=== PATIENT | female | born 1960 | race Caucasian/White ===

== ENCOUNTER → 2017-06-24 14:46 | Outpatient (CLI) | payer OTHER, SELFPAY ==
--- NOTE | 2017-06-24 14:52 | CT_ITS ---
CT chest w con COMPARISON: CT scan the chest with IV contrast 05/02/2016 HISTORY: Follow-up lung nodule TECHNIQUE: Multiaxial scans obtained from the thoracic inlet the hemidiaphragms and were performed with IV contrast. Sagittal and coronal reformats were evaluated as well. FINDINGS: The lung miranda are well expanded. There is no infiltrate and is no pleural fluid. Again noted several tiny 1 to 2 mm noncalcified pulmonary nodules which are stable and unchanged from previous exam. There is a calcified granuloma right lower lobe posterior basilar segment. Cardiac size is normal and the vascularity is normal. There is a low-density lesion right adrenal gland likely a cyst but difficult to be actually certain without noncontrast images. IMPRESSION: Stable multiple tiny noncalcified pulmonary nodules likely evolving granulomas. Stable hypodense lesion right adrenal gland likely a cyst or adenoma.
== END ==
LOC: RAD 14:46
PROVIDERS: Family Provider Internal Medicine Adolescent Medicine; PCP Internal Medicine Adolescent Medicine; Visit Provider Internal Medicine Adolescent Medicine
DX: R91.8 Other nonspecific abnormal finding of lung field (principal); M54.31 Sciatica, right side; M54.41 Lumbago with sciatica, right side; G89.29 Other chronic pain
CPT/HCPCS: 71260; Q9967

== ENCOUNTER 2017-07-08 16:00 | Outpatient (RCR) | payer OTHER, SELFPAY ==
--- NOTE | 2017-06-24 16:17 | HMH.PTOPEV ---
Rehab Outpatient Evaluation Rehab OP Evaluation Start: 06/24/17 16:05 Freq: Status: Active Protocol: Document 06/24/17 16:05 CORBYDURAN (Rec: 06/24/17 16:16 RONI [id number]) Electronically Signed By Casey Sunshine PT 06/24/17 16:05 Outpatient Therapy Subjective History Subjective History THis is the initial Physical Therapy evaluation for Jennifer Novoa. Pt is a 56 y/o female referred to PT for c/o LBP and bilateral LE pain w/ R>L. Pt reports she had herniated disc ~ 6 years ago and has intermittant back pain since then. Pt reports this bout began ~ 2 months ago when she slipped on icy steps and landed on her back. Pt reports pain has been consistent and she now has pain into BLE. Chief Complaint Pain Spasms Paresthesia Symptom Type Ache Throb Sharp Stabbing Numbness Tingling Shooting Symptoms Relieved By Rest/Positioning Heat Ice Symptoms Aggravated By Standing Physical Activity Walking Prior Functional Limitations None Current Functional Limitations Lifting Housework Standing Recreation Activity Walking Symptom Description Constant but Variable Level of pain today (0-10) 1 Pain scale - at its best (0-10) 1 Pain scale - at its worst (0-10) 6 Lumbopelvic Eval Posture Thoracic Spine Posture Standing Position Increased Kyphosis Lumbar Spine Posture Standing Position Decreased Lordosis Assistive device Assistive Devices None / NA Palapation tenderness bilateral thoracic spinal tenderness No lumbar spinal tenderness Yes: L5 ttp paraspinal tenderness Yes: L4/L5 level buttock tenderness Yes: R piriformis Lumbar/Sacral Palpation Findings Tenderness Accessory Movement L-spine Vertebrae Accessory Movements Central P/A Longs that Elicit Symptoms Right P/A Longs Left P/A Glid
== END 2017-07-08 16:01 | disposition home or self-care (01) ==
LOC: PT 16:00
PROVIDERS: Family Provider Internal Medicine Adolescent Medicine; PCP Internal Medicine Adolescent Medicine; Visit Provider Internal Medicine Adolescent Medicine
DX: M54.31 Sciatica, right side (principal); M54.41 Lumbago with sciatica, right side; G89.29 Other chronic pain
CPT/HCPCS: 97010; 97012; 97014; 97035; 97110; G0283

== ENCOUNTER → 2017-10-01 08:10 | Outpatient (CLI) | payer OTHER, SELFPAY ==
[2017-10-01 08:35] LABS: Basophils % 0.5 % (0.1-2.0); Eosinophils # 0.2 K/mm3 (0.0-0.4); Eosinophils % 2.8 % (0.1-12.0); Hematocrit 44.1 % (37.0-47.0); Hemoglobin 14.1 g/dL (12.2-16.2); Lymphocytes # 2.7 K/mm3 (0.7-4.5); Lymphocytes % 36.4 K/mm3 (10-50); Mean Corpuscular HGB Conc 32.1 g/dL (31.8-35.4); Mean Corpuscular Hemoglobin 28.9 pg (27.0-31.2); Mean Corpuscular Volume 90.1 fl (81-99); Monocytes # 0.5 K/mm3 (0.1-1.0); Neutrophils % 53.4 % (37.0-80.0); Platelet Count 258 K/mm3 (142-424); Red Blood Count 4.89 M/mm3 (4.20-5.40); Red Cell Distribution Width 12.7 % (11.5-17.5); White Blood Count 7.5 K/mm3 (4.8-10.8)
[2017-10-01 09:42] LABS: Alanine Aminotransferase 33 U/L (12-78); Albumin/Globulin Ratio 1.5 (1.1-1.8); Alkaline Phosphatase 86 U/L (46-116); Anion Gap 12.5 mEq/L (5-15); Aspartate Amino Transferase 22 U/L (15-37); Bilirubin,Total 0.5 mg/dL (0.2-1.0); Blood Urea Nitrogen 14 mg/dL (7-18); Calcium 8.9 mg/dL (8.5-10.1); Carbon Dioxide 25 mmol/L (21.0-32.0); Chloride 110 mmol/L (98-107); Chol/HDL Ratio 3.6 (1-3.5); Cholesterol 203 mg/dL (140-200); Creatinine,Serum 0.74 mg/dL (0.55-1.02); Estimated Glomerular Filt Rate 81 ml/min (>60); GFR (African American) 99 ML/MIN (>60); Globulin 2.7 gm/dl (1.3-3.2); Glucose 87 mg/dL (74-106); HDL Cholesterol 57 mg/dL (29-89); LDL Cholesterol 133 mg/dL (0-130); Potassium 4.5 mmoL/L (3.5-5.1); Sodium 143 mmol/L (136-145); Thyroid Stimulating Hormone 2.04 uIU/ml (0.358-3.740); Total Protein,Serum 6.7 gm/dL (6.4-8.2); Triglycerides 64 mg/dL (30-200); VLDL Cholesterol 13 mg/dL (0-40)
[2017-10-03 17:57] LABS: Estradiol <5.0 pg/mL (.); FSH 77.2 mIU/mL (.); LH 28.6 mIU/mL (.)
== END ==
PROVIDERS: Visit Provider Nurse Practitioner Family
DX: Z00.00 Encounter for general adult medical examination without abnormal findings (principal); R23.2 Flushing; N95.1 Menopausal and female climacteric states; R53.83 Other fatigue
CPT/HCPCS: 36415; 80053; 80061; 82670; 83001; 83002; 84443; 85025

== ENCOUNTER → 2017-10-06 16:16 | Outpatient (CLI) | payer OTHER, SELFPAY ==
--- NOTE | 2017-10-06 16:19 | MM_ITS ---
MM Dig screening mamm BI w/CAD CAD Screening COMPARISON: Digital mammograms with CAD 02/08/2016 and additional views right breast 05/02/2016 INDICATION: There is a history of breast cancer in patient's sister diagnosed at age 54 TECHNIQUE: Standard CC and MLO images were obtained. R2 CAD reviewed. FINDINGS: Scattered fibroglandular densities are seen throughout both breast and the findings are bilateral and symmetrical. There is no suspicious lesion and there are no suspicious microcalcifications. There is a benign-appearing calcification left breast. IMPRESSION: Fibrofatty parenchyma with no suspicious lesion seen BI-RADS Category: 2 Benign Finding(s) RECOMMENDED FOLLOW-UP: 1YR - 1 YEAR FOLLOW-UP (A letter has been sent to the patient regarding results of the study.)
== END ==
PROVIDERS: Family Provider Internal Medicine Adolescent Medicine; PCP Internal Medicine Adolescent Medicine; Visit Provider Nurse Practitioner Family
DX: Z12.31 Encounter for screening mammogram for malignant neoplasm of breast (principal)
CPT/HCPCS: 77067

== ENCOUNTER → 2018-10-01 07:15 | Outpatient (CLI) | payer OTHER, SELFPAY ==
[2018-10-01 07:44] LABS: Basophils % 0.4 % (0.1-2.0); Eosinophils # 0.3 K/mm3 (0.0-0.4); Eosinophils % 3.5 % (0.1-12.0); Hematocrit 45.1 % (37.0-47.0); Hemoglobin 13.9 g/dL (12.2-16.2); Lymphocytes # 3.5 K/mm3 (0.7-4.5); Lymphocytes % 48.4 % (10-50); Mean Corpuscular HGB Conc 30.7 g/dL (31.8-35.4); Mean Corpuscular Hemoglobin 30.1 pg (27.0-31.2); Mean Corpuscular Volume 97.8 fl (81-99); Mean Platelet Volume 8.2 fl (7.4-10.4); Monocytes # 0.4 K/mm3 (0.1-1.0); Monocytes % 5.3 % (1.7-9.3); Neutrophils # 3.1 K/mm3 (1.8-7.8); Neutrophils % 42.4 % (37.0-80.0); Platelet Count 255 K/mm3 (142-424); Red Blood Count 4.61 M/mm3 (4.20-5.40); Red Cell Distribution Width 13.1 % (11.5-17.5); White Blood Count 7.3 K/mm3 (4.8-10.8)
[2018-10-01 08:31] LABS: Alanine Aminotransferase 30 U/L (12-78); Albumin Level 3.5 gm/dL (3.4-5.0); Albumin/Globulin Ratio 1.3 (1.1-1.8); Alkaline Phosphatase 90 U/L (46-116); Anion Gap 11.5 mEq/L (5-15); Aspartate Amino Transferase 16 U/L (15-37); Bilirubin,Total 0.3 mg/dL (0.2-1.0); Blood Urea Nitrogen 18 mg/dL (7-18); Calcium 8.9 mg/dL (8.5-10.1); Carbon Dioxide 27 mmol/L (21.0-32.0); Chloride 110 mmol/L (98-107); Chol/HDL Ratio 3.1 (1-3.5); Cholesterol 191 mg/dL (140-200); Creatinine,Serum 0.89 mg/dL (0.55-1.02); Estimated Glomerular Filt Rate 66 ml/min (>60); GFR (African American) 79 ML/MIN (>60); Globulin 2.8 gm/dl (1.3-3.2); Glucose 86 mg/dL (74-106); HDL Cholesterol 62 mg/dL (29-89); LDL Cholesterol 119 mg/dL (0-130); Potassium 4.5 mmoL/L (3.5-5.1); Sodium 144 mmol/L (136-145); Total Protein,Serum 6.3 gm/dL (6.4-8.2); Triglycerides 51 mg/dL (30-200); VLDL Cholesterol 10 mg/dL (0-40)
== END ==
PROVIDERS: Visit Provider Internal Medicine Adolescent Medicine
DX: Z00.00 Encounter for general adult medical examination without abnormal findings (principal); R91.8 Other nonspecific abnormal finding of lung field
CPT/HCPCS: 36415; 80053; 80061; 85025

== ENCOUNTER → 2018-12-09 15:11 | Outpatient (CLI) | payer OTHER, SELFPAY ==
--- NOTE | 2018-12-09 15:20 | CT_ITS ---
PROCEDURE: CT CHEST WO/W CON CLINCAL INDICATION: LUNG NODULES Follow-up lung nodule COMPARISON: CHESTW CT chest w con from 06/24/2017 TECHNIQUE: IV Contrast: 75ml Optiray 350 Axial images obtained with sagittal and coronal reformats. All CT scans at the facility use one or more dose reduction, viz: automated exposure control, ma/kV adjustment per patient size (including targeted exams where dose is matched to indication, i.e. head), or iterative reconstruction technique. FINDINGS: Scattered small nodes are present in the axilla. There are coronary artery calcifications. Normal heart size. No mediastinal or hilar adenopathy. There are few small stable lymph nodes within the mediastinum. There is mild centrilobular emphysema. Calcified granuloma is present in the right lung base. There are few scattered small subpleural opacities which are nonspecific. There are a few small 1-2 mm opacities which appear stable. No new suspicious nodules. Nodular enlargement is once again noted involving the right adrenal gland measuring -13 Hounsfield units consistent with adenomatous involvement IMPRESSION: Stable CT appearance of the chest. COPD/centrilobular emphysema with evidence of old granulomatous disease with stable 1-2 mm nodular opacities as previously described. No new nodules apparent Coronary artery calcifications suggesting coronary artery disease Stable right adrenal nodule Dictated by: John Durand MD 12/11/2018 05:36 Electronically signed by John Durand MD in [place] 12/11/2018 05:36
[2018-12-09 15:31] LABS: Blood Urea Nitrogen 14 mg/dL (7-18); Creatinine,Serum 0.74 mg/dL (0.55-1.02); Estimated Glomerular Filt Rate 81 ml/min (>60); GFR (African American) 98 ML/MIN (>60)
== END ==
PROVIDERS: PCP Internal Medicine Adolescent Medicine; Visit Provider Internal Medicine Adolescent Medicine
DX: R91.8 Other nonspecific abnormal finding of lung field (principal)
CPT/HCPCS: 36415; 71270; 82565; 84520; Q9967

== ENCOUNTER → 2019-01-01 15:10 | Outpatient (CLI) | payer OTHER, SELFPAY ==
--- NOTE | 2019-01-01 15:12 | XR_ITS ---
PROCEDURE: XR DEXA AXIAL SKELETON CLINICAL HISTORY: VASOMOTOR SYMPTOME DUE TO MENOPAUSE COMPARISON: No exams were available for comparison FINDINGS: The L1-L4 density is 1.187 with a T-score of 0.1. Mean hip density is 0.744 grams/centimeters sq with a T-score of -2.1 consistent with osteopenia. IMPRESSION: Osteopenia with moderate fracture risk. Treatment advised. Suggest follow-up exam December 2020 Dictated by: John Durand MD 01/01/2019 17:21 Electronically signed by John Durand MD in [place] 01/01/2019 17:21
--- NOTE | 2019-01-01 15:12 | MM_ITS ---
PROCEDURE: MM DIG SCREENING MAMM BI W/CAD Patient Age:58Y CLINICAL INDICATION: SCREENING routine screening mammogram. No hormones but no new complaints. Family history: Sister with breast cancer age 34. Another sister with breast cancer age 65. COMPARISON: DIGMAMMS MAMMOGRAM SCREEN-PEST CONTROL PILOT N/C from 11/09/2007 [facility] DIG MAMM-SCREEN TORI from 12/09/2012 [facility] DIG MAMM-SCREEN TORI from 02/08/2016 [facility] DIG MAMM-DX UNI A/VW-RT W/CAD from 05/02/2016 [facility] MM Dig screening mamm BI w/CAD from 10/06/2017 TECHNIQUE: Standard CC and MLO images were obtained. R2 CAD reviewed. Additional right MLO view, as well as axillary CC view both breast included. FINDINGS: . [id number] residual fibroglandular elements both breast No dominant or suspicious mass either breast. No suspicious calcifications Right breast. No new areas of significant concern. Subtle low-density 5 mm area of nodularity deep lateral right breast is seen on previous studies dating back to 2016 and most compatible with a small intramammary node. But no new areas of concern high Left breast: Small subtle density seen on MLO view is highlighted today by the CAD computer review system. Most likely this is and overlapping shadow. It measures up to 5 mm size but however given question of possible slight irregular margin appearance on detailed viewing of this area along with significant positive family history, to be particularly cautious I would suggest the patient return for spot view of this area along with left breast ultrasound. Again I favor is more likely merely overlapping shadows which seems to for the most part dissipate on the CC views. CC views appear stable when compared to prior studies of 2017 2015 (Suggest MLO and CC spot views along with a full 90 degree view left breast) IMPRESSION: Left breast: Small area of minimal density highlighted on MLO view is most likely a summation shadow, but would suggest spot views and ultrasound to further evaluate and to be diligent/cautious in this patient significant family history Right breast. No new areas of concern. Follow-up 1 year right breast recommended BI-RAD Category: 0 Need Additional Imaging Evaluation FOLLOW-UP: IMM Immediate Follow-up Recommended Left breast spot views and ultrasound (A letter has been sent to the patient regarding results of the study.) Dictated by: Chano Krueger MD 01/02/2019 14:19 Electronically signed by Chano Krueger MD in [place] 01/02/2019 14:19
== END ==
LOC: RAD 15:10
PROVIDERS: PCP Internal Medicine Adolescent Medicine; Visit Provider Internal Medicine Adolescent Medicine
DX: Z12.31 Encounter for screening mammogram for malignant neoplasm of breast (principal); Z13.820 Encounter for screening for osteoporosis; N95.1 Menopausal and female climacteric states; M85.89 Other specified disorders of bone density and structure, multiple sites
CPT/HCPCS: 77067; 77080

== ENCOUNTER → 2019-01-18 13:58 | Outpatient (CLI) | payer OTHER, SELFPAY ==
--- NOTE | 2019-01-18 14:00 | MM_ITS ---
PROCEDURE: MM DIG MAMM DX UNILAT LT CAD CLINICAL INDICATION: ABN MAMM Follow-up abnormal mammogram the COMPARISON: [facility] DIG MAMM-DX UNI A/VW-RT W/CAD from 05/02/2016 [facility] MM Dig screening mamm BI w/CAD from 10/06/2017 MM DIG SCREENING MAMM BI W/CAD from 01/01/2019 US BREAST LT COMPLETE from 01/18/2019 TECHNIQUE: Problem solving views performed along with left breast ultrasound. FINDINGS: Spot compression views of the MLO left breast once again show some asymmetry in the mid aspect of the left breast slightly superior. This corresponds to the screening mammogram. The mL view and CC view however fail to demonstrate a corresponding abnormality and left breast ultrasound is unremarkable. This may only be due to an area of tissue overlap. 3 month follow-up is suggested. Left breast ultrasound: At 10 o'clock near the nipple there is a 6 x 6 mm hyperechoic nodule with central cystic area which is probably benign. IMPRESSION: The asymmetry in the superior lip mid aspect of the left breast seen only on the MLO view and may be due to tissue overlap. Recommend 3 month mammographic and sonographic follow-up with spot compression views. BI-RAD Category: 3 Probably Benign Finding Short Term Follow-up FOLLOW-UP: 3M 3 Month Follow-up (A letter has been sent to the patient regarding results of the study.) Dictated by: John Durand MD 01/26/2019 08:12 Electronically signed by John Durand MD in [place] 01/26/2019 08:12
== END ==
LOC: RAD 13:58
PROVIDERS: PCP Internal Medicine Adolescent Medicine; Visit Provider Internal Medicine Adolescent Medicine
DX: R92.8 Other abnormal and inconclusive findings on diagnostic imaging of breast (principal)
CPT/HCPCS: 76641; 77065

== ENCOUNTER → 2019-05-03 12:06 | Outpatient (CLI) | payer OTHER, SELFPAY ==
--- NOTE | 2019-05-03 12:12 | XR_ITS ---
PROCEDURE: XR CHEST 2V CLINICAL HISTORY: FEVER, CHILLS,COUGH Smoker COMPARISON: CXR CHEST(2 VIEWS-NOT PORTABLE) from 10/24/2015 CT CHEST WO/W CON from 12/09/2018 FINDINGS: The cardiomediastinal silhouette and pulmonary vascularity are within normal limits. The lungs are clear without infiltrates, suspicious nodules, or pleural effusions. There are mild atelectatic or fibrotic changes in the left lung base. IMPRESSION: Minimal left basilar atelectasis or fibrosis otherwise negative Dictated by: John Durand MD 05/03/2019 14:10 Electronically signed by John Duradn MD in [place] 05/03/2019 14:10
== END ==
PROVIDERS: PCP Internal Medicine Adolescent Medicine; Visit Provider Nurse Practitioner Family
DX: R05 Cough (principal); R50.9 Fever, unspecified
CPT/HCPCS: 71046

== ENCOUNTER → 2019-05-04 12:46 | Outpatient (POV) | payer OTHER, SELFPAY | PROVIDERS: Visit Provider Dermatology | DX: Z00.00 Encounter for general adult medical examination without abnormal findings (principal) ==

== ENCOUNTER → 2019-05-05 14:48 | Outpatient (CLI) | payer OTHER, SELFPAY ==
--- NOTE | 2019-05-05 14:51 | MM_ITS ---
PROCEDURE: MM DIG MAMM DX UNILAT LT CAD CLINICAL INDICATION: ABN MAMM Follow-up abnormal mammogram and ultrasound COMPARISON: [facility] DIG MAMM-DX UNI A/VW-RT W/CAD from 05/02/2016 [facility] MM Dig screening mamm BI w/CAD from 10/06/2017 MM DIG SCREENING MAMM BI W/CAD from 01/01/2019 MM DIG MAMM DX UNILAT LT CAD from 01/18/2019 US BREAST LT COMPLETE from 01/18/2019 US BREAST LT COMPLETE from 05/05/2019 TECHNIQUE: Standard CC and MLO images and 3D Tomosynthesis was obtained. R2 CAD reviewed. FINDINGS: Average fibroglandular tissue. Benign-appearing left breast calcification. The area of asymmetric density in the slightly superior aspect of the left breast is not significantly changed. No malignant appearing mass or malignant-appearing microcalcification. Left breast ultrasound: There is a small hypoechoic nodule at 10 o'clock measuring 3 mm not significantly changed. The no posterior acoustical shadowing. This may be due to small area of fibroglandular tissue probably not significantly changed considering the difference in technique. IMPRESSION: BI-RAD Category: 3 Probably Benign Finding Short Term Follow-up FOLLOW-UP: 9 month follow-up of both breast (A letter has been sent to the patient regarding results of the study.) Dictated by: John Durand MD 05/08/2019 11:08 Electronically signed by John Durand MD in [place] 05/08/2019 11:08
== END ==
PROVIDERS: PCP Internal Medicine Adolescent Medicine; Visit Provider Internal Medicine Adolescent Medicine
DX: R92.8 Other abnormal and inconclusive findings on diagnostic imaging of breast (principal)
CPT/HCPCS: 76641; 77061; 77065; G0279

== ENCOUNTER → 2019-09-06 10:07 | Outpatient (POV) | payer OTHER, SELFPAY ==
[2019-09-06 10:46] VITALS: BP 130/52; PULSE 68; RESP 18; TEMP 36.5; O2SAT 99; BMI 26.4
--- NOTE | 2019-09-06 13:58 | HMH.PMCON ---
Assessment and Plan (1) Back pain Current visit: Yes Status: Chronic Qualifiers: Back pain location: low back pain Chronicity: chronic Back pain laterality: left Sciatica presence: with sciatica Sciatica laterality: sciatica of left side Qualified Code(s): M54.42 - Lumbago with sciatica, left side; G89.29 - Other chronic pain Category: Medical Code(s): M54.9 - Dorsalgia, unspecified (2) Lumbar radiculopathy Current visit: Yes Status: Chronic Category: Medical Code(s): M54.16 - Radiculopathy, lumbar region - Assessment and plan all Dx Assessment and Plan for all problems:: We will get a baseline MRI for the patient to help determine pathology. I will follow-up with the patient after this reassess her symptoms at that time. She has been instructed to call the office if she has any issues prior to her next appointment. Dr. Cristobal has reviewed this note and agrees with this plan of care. This note was dictated using voice recognition software and may contain errors or omissions HPI - Data of Consult Consult date: 09/06/19 Requesting Physician: Elisabeth Knight APRN Primary Care Provider: Santiago Mckeon MD - Consult Narrative Reason for consult: Back pain, leg pain History of present illness: Ms. Novoa is a 58 year old female who presents today for consultation regards to low back and leg pain. She has worsening left leg pain with weakness. She rates her pain a 6 out of 10. She is had this in the past. She has had epidural injections which have helped in the past. She is tried and failed anti-inflammatories medication. Any kind increased activity increases her pain will rest and heat decreases her pain. She has numbness and tingling in her left leg. CC: Elisabeth Knight APRN [facility] History I have reviewed the patient's past medical history: Yes Medical History: Denies:: Diabetes Mellitus Type 1, Diabetes Mellitus Type 2 *Have you ever received a pneumonia vaccine?: Yes *Have you received a flu vaccine this season?: Yes Other Medical History: Reports: Arthritis Laterality Cases: Bilateral: Tonsillectomy Other Surgeries: Yes: No Previous Surgery, Hysterectomy-Total, Tubal Ligation Amputation: No Fractures: No - *Social History Smoking Status: Current every day smoker Tobacco Type: cigarettes # Packs/Day (cigarettes): 1 Alcohol Intake: never *Occupational Status:: employed Housing: house Household Members: other *Travel in the last 8 weeks: None Family Hx:: Unable to obtain Review of Systems - Review of Systems ROS General: no recent weight change, no fever, no sleep disturbances Respiratory: no cough, no shortness of air, no recurring pulmonary infections Cardiovascular/Peripheral Vascular: No chest pain, No palpitations, no edema, no shortness of breath. Gastrointestinal: no new onset incontinence, normal bowel movements reported Genitourinary: no new onset incontinence Musculoskeletal: Back pain, leg pain Psychiatric: normal mood/ affect, Neurological: Weakness in left lower extremity, [denies new onset balance issues] Meds Home Medications Medication Instructions Recorded Confirmed Type triamcinolone acetonide 0.1 % 1 applic TOPICAL TID #60 g 09/19/18 09/19/18 Rx topical cream Celecoxib 200 mg PO DAILY 12/06/18 12/06/18 History Venlafaxine HCl [Effexor XR 75mg 75 mg PO DAILY 12/06/18 12/06/18 History capsule] cephALEXin [Keflex 250mg Cap] 250 mg PO Q8H 7 Days #21 cap 12/06/18 Rx Allergies Allergy/AdvReac Type Severity Reaction Status Date / Time meloxicam [MELOXICAM] Allergy Unknown Verified 12/06/18 09:23 Objective Vital signs: Temp Pulse Resp BP Pulse Ox 97.7 F 68 18 130/52 L 99 09/06/19 10:46 09/06/19 10:46 09/06/19 10:46 09/06/19 10:46 09/06/19 10:46 Narrative: Physical Exam General: Alert and oriented x3, no acute distress, pleasant and cooperative, [on room air] Lungs: Resps E/U,
== END ==
PROVIDERS: PCP Internal Medicine Adolescent Medicine; Visit Provider Clinical Nurse Specialist Family Health
DX: M54.42 Lumbago with sciatica, left side (principal); M54.16 Radiculopathy, lumbar region
CPT/HCPCS: 99202

== ENCOUNTER → 2019-09-13 08:46 | Outpatient (CLI) | payer OTHER, SELFPAY ==
--- NOTE | 2019-09-13 08:51 | MR_ITS ---
PROCEDURE: MR LUMBAR SPINE WO CON CLINICAL INDICATION: BACK PAIN COMPARISON: [employer]/O MRI-L-SPINE W/O from 02/12/2013 [employer]/O MRI-L-SPINE W/O from 08/11/2014 TECHNIQUE: Standard multiplanar multiecho sequences are performed without contrast. 3-D MIP and myelographic images are also rendered and reviewed FINDINGS: Mild degenerative lumbar scoliosis concave to the right is noted. SI joints are intact. There is interval mild degenerative narrowing at the L4-5 disc space. The spinal cord and conus medullaris is unremarkable. At the L1-2 disc space there is no significant spinal stenosis. At the L2-3 disc space there is mild facet arthropathy producing mild central canal and mild bilateral neural foraminal stenosis. At the L3-4 disc space there is a broad-based disc protrusion, mild hypertrophy of the ligamentum flavum and moderate facet arthropathy producing mild central canal and mild bilateral neural foraminal stenosis, left greater than right At the L4-5 disc space there is a broad-based disc protrusion, hypertrophy of the right half of the ligamentum flavum, moderate right facet arthropathy and mild left facet arthropathy. Mild left neural foraminal stenosis, moderate right neural foraminal stenosis, and moderate central canal stenosis is noted. At the L5-S1 disc space there is a broad-based disc protrusion without significant spinal stenosis.. The paralumbar structures remarkable for 1 centimeter lower pole left renal cyst IMPRESSION: Interval progressive multilevel spinal stenosis most pronounced at the L4-5 disc base as described above. Dictated by: Armand Leo 09/13/2019 10:55 Electronically signed by Armand Leo in [place] 09/13/2019 10:55
== END ==
PROVIDERS: PCP Internal Medicine Adolescent Medicine; Visit Provider Clinical Nurse Specialist Family Health
DX: M54.5 Low back pain (principal)
CPT/HCPCS: 72148; 76376

== ENCOUNTER 2019-09-17 14:58 | Day surgery (SDC) | payer OTHER, SELFPAY ==
[2019-09-17 16:00] VITALS: BP 118/51; PULSE 78; RESP 18; TEMP 37.2; O2SAT 94; BMI 25.7
[2019-09-17 16:30] VITALS: BP 125/85; PULSE 85; RESP 18; O2SAT 98
[2019-09-17 16:36] VITALS: BP 125/89; PULSE 85; RESP 18
--- NOTE | 2019-09-17 16:37 | HMH.PMPROC ---
- Procedure Date: 09/17/19 Time: 16:37 Anesthesiologist:: Ole Cristobal MD Complications:: None Pre-procedure Diagnosis:: Degenerative disc disease of lumbar spine with lumbar radiculopathy symptoms Post-procedure Diagnosis:: Same Indications for Procedure:: This patient is a pleasant 59-year-old white female who we are treating for low back pain with lumbar radiculopathy symptoms. She has increasing low back pain with radiation down both legs. We will do a lumbar epidural steroid injection today to see if this well with her pain symptoms. Procedure Details:: Lumbar epidural steroid injection under fluoroscopy Informed consent was obtained and the risk and benefits of the procedure was explained to the patient. The patient was taken to the procedure room. The patient was placed prone on the procedure table. The patient was prepped and draped in sterile fashion. C-arm fluoroscopy was used to view the lumbar spine. Skin and subcutaneous tissues were anesthetized using lidocaine. I placed an 18-gauge epidural needle and advanced into the L4-L5 interspace using fluoroscopic guidance and [id number] to air. After confirmation of needle placement in the epidural space with dye I injected 2 mL of lidocaine 1.5% with Depo-Medrol 80 mg. Patient tolerated the procedure well with no complications. Plan and Disposition:: We will follow-up with her in 2 weeks. Will reevaluate her symptoms at that time.
[2019-09-17 16:38] VITALS: BP 143/63; PULSE 80; RESP 16; O2SAT 99
== END 2019-09-17 16:38 | disposition home or self-care (01) ==
LOC: SC.PAINP 15:00
PROVIDERS: PCP Internal Medicine Adolescent Medicine; Visit Provider Anesthesiology
DX: M51.16 Intervertebral disc disorders with radiculopathy, lumbar region (principal); Z72.0 Tobacco use; Z90.89 Acquired absence of other organs; Z90.710 Acquired absence of both cervix and uterus; Z88.8 Allergy status to other drugs, medicaments and biological substances; Z79.899 Other long term (current) drug therapy; Z79.51 Long term (current) use of inhaled steroids
CPT/HCPCS: 62323; J1040; Q9966

== ENCOUNTER 2019-10-01 08:50 | Day surgery (SDC) | payer OTHER, SELFPAY ==
[2019-10-01 08:56] VITALS: BP 119/68; PULSE 81; RESP 18; TEMP 36.4; O2SAT 99; BMI 25.7
[2019-10-01 09:08] VITALS: BP 128/58; PULSE 83; RESP 18
[2019-10-01 09:09] VITALS: BP 130/85; PULSE 83; RESP 18; O2SAT 99
--- NOTE | 2019-10-01 09:15 | HMH.PMPROC ---
- Procedure Date: 10/01/19 Time: 09:16 Anesthesiologist:: Ole Cristobal MD Complications:: None Pre-procedure Diagnosis:: Degenerative disc disease of the lumbar spine with lumbar radiculopathy symptoms Post-procedure Diagnosis:: Same Indications for Procedure:: This patient is a pleasant 59-year-old white female who we are treating for low back pain with lumbar radicular symptoms. She did very well with her last lumbar epidural steroid injection. She was 89% better. Her pain is just now starting to return. We will do repeat lumbar epidural steroid injection under fluoroscopy today. Procedure Details:: Lumbar epidural steroid injection under fluoroscopy Informed consent was obtained and the risk and benefits of the procedure was explained to the patient. The patient was taken to the procedure room. The patient was placed prone on the procedure table. The patient was prepped and draped in sterile fashion. C-arm fluoroscopy was used to view the lumbar spine. Skin and subcutaneous tissues were anesthetized using lidocaine. I placed an 18-gauge epidural needle and advanced into the L4-L5 interspace using fluoroscopic guidance and [id number] to air. After confirmation of needle placement in the epidural space with dye I injected 2 mL of lidocaine 1.5% with Depo-Medrol 80 mg. Patient tolerated the procedure well with no complications. Plan and Disposition:: We will follow-up with her in 2 weeks. Will reevaluate symptoms at that time. Will plan on repeat lumbar epidural steroid injection if needed.
[2019-10-01 09:25] VITALS: BP 142/73; PULSE 82; RESP 20; O2SAT 99
== END 2019-10-01 09:25 | disposition home or self-care (01) ==
LOC: SC.PAINP 08:51
PROVIDERS: PCP Internal Medicine Adolescent Medicine; Visit Provider Anesthesiology
DX: M51.16 Intervertebral disc disorders with radiculopathy, lumbar region (principal); I10 Essential (primary) hypertension; F41.9 Anxiety disorder, unspecified; J44.9 Chronic obstructive pulmonary disease, unspecified; M19.90 Unspecified osteoarthritis, unspecified site; Z72.0 Tobacco use; Z90.89 Acquired absence of other organs; Z90.710 Acquired absence of both cervix and uterus; Z79.51 Long term (current) use of inhaled steroids
CPT/HCPCS: 62323; J1040; Q9966

== ENCOUNTER 2019-11-12 13:34 | Day surgery (SDC) | payer OTHER, SELFPAY ==
[2019-11-12 14:02] VITALS: BP 113/62; PULSE 77; RESP 18; TEMP 37.2; O2SAT 98; BMI 25.6
[2019-11-12 14:18] VITALS: BP 125/75; PULSE 86; RESP 18; O2SAT 98
[2019-11-12 14:19] VITALS: BP 128/78; PULSE 84; RESP 18; O2SAT 98
--- NOTE | 2019-11-12 14:20 | HMH.PMPROC ---
- Procedure Date: 11/12/19 Time: 14:20 Anesthesiologist:: Ole Cristobal MD Complications:: None Pre-procedure Diagnosis:: Degenerative disc disease of lumbar spine with lumbar radiculopathy symptoms Post-procedure Diagnosis:: Same Indications for Procedure:: This patient is a pleasant 59-year-old white female who we have been treating for low back pain with lumbar radiculopathy symptoms. She did very well with her last lumbar epidural steroid injection. She does have a couple episodes a week where she does have spasms in her left leg. She is also having issues with her left SI joint. She is tender over her left SI joint. She has a positive Any's test on left SI joint. She has a positive Delfina test on left side. We will do a left SI joint injection in the future. Today we will do a lumbar epidural steroid injection to help with her residual pain symptoms. Procedure Details:: Lumbar epidural steroid injection under fluoroscopy Informed consent was obtained and the risk and benefits of the procedure was explained to the patient. The patient was taken to the procedure room. The patient was placed prone on the procedure table. The patient was prepped and draped in sterile fashion. C-arm fluoroscopy was used to view the lumbar spine. Skin and subcutaneous tissues were anesthetized using lidocaine. I placed an 18-gauge epidural needle and advanced into the L4-L5 interspace using fluoroscopic guidance and [id number] to air. After confirmation of needle placement in the epidural space with dye I injected 2 mL of lidocaine 1.5% with Depo-Medrol 80 mg. Patient tolerated the procedure well with no complications. Plan and Disposition:: We will follow-up with her in 2 weeks. Will reevaluate symptoms at that time. We will assess her left SI joint and plan on a left SI joint injection in the future.
[2019-11-12 14:31] VITALS: BP 130/56; PULSE 75; RESP 18; O2SAT 98
== END 2019-11-12 14:33 | disposition home or self-care (01) ==
LOC: SC.PAINP 13:35
PROVIDERS: PCP Internal Medicine Adolescent Medicine; Visit Provider Anesthesiology
DX: M51.16 Intervertebral disc disorders with radiculopathy, lumbar region (principal); I10 Essential (primary) hypertension; G62.9 Polyneuropathy, unspecified; Z72.0 Tobacco use; Z90.89 Acquired absence of other organs; Z98.51 Tubal ligation status; Z90.710 Acquired absence of both cervix and uterus; Z88.8 Allergy status to other drugs, medicaments and biological substances; Z79.899 Other long term (current) drug therapy
CPT/HCPCS: 62323; J1040; Q9966

== ENCOUNTER 2019-12-24 12:30 | Day surgery (SDC) | payer OTHER, SELFPAY ==
[2019-12-24 12:55] VITALS: BP 140/62; PULSE 86; RESP 18; TEMP 36.6; O2SAT 99; BMI 25.0
[2019-12-24 13:16] VITALS: BP 122/74; PULSE 85; RESP 18; O2SAT 98
[2019-12-24 13:17] VITALS: BP 132/74; PULSE 85; RESP 18; O2SAT 98
--- NOTE | 2019-12-24 13:26 | HMH.PMPROC ---
- Procedure Date: 12/24/19 Time: 13:26 Anesthesiologist:: Ole Cristobal MD Complications:: None Pre-procedure Diagnosis:: Sacroiliitis Post-procedure Diagnosis:: Same Indications for Procedure:: This patient is a pleasant 59-year-old white female who we are treating for low back pain with lumbar radiculopathy symptoms and bilateral hip pain with sacroiliitis. She is tender over both SI joints. She has a positive Any's test bilaterally. She is positive SI joint compression test bilaterally. She is positive Delfina test bilaterally. We will do bilateral SI joint injections under fluoroscopy today to help with pain symptoms. Procedure Details:: B/L SI joint injection under fluoroscopy Informed consent was obtained and the risks and benefits of the procedure was explained to the patient. The patient was taken to the procedure room and placed prone on the procedure table. The patient was prepped using ChloraPrep. The skin and subcutaneous tissues overlying the SI joints were anesthetized using lidocaine. I placed a 22-gauge needle first in the left SI joint and second in the right SI joint. Needle placement was confirmed with dye. After this we injected 5 mL bupivacaine 0.25% and Depo-Medrol 40 mg into each SI joint. Patient tolerated the procedure well with no complication. Plan and Disposition:: We will follow-up with her in 2 weeks. Will reevaluate symptoms at that time. She is scheduled see Dr. Caballero here in the next few weeks. If she is not a surgical candidate she may benefit from spinal cord stimulation to help with her back pain and leg pain. We will get her information on that today.
[2019-12-24 13:30] VITALS: BP 143/74; PULSE 88; RESP 20; O2SAT 99
== END 2019-12-24 13:31 | disposition home or self-care (01) ==
LOC: SC.PAINP 12:31
PROVIDERS: PCP Internal Medicine Adolescent Medicine; Visit Provider Anesthesiology
DX: M46.1 Sacroiliitis, not elsewhere classified (principal); E78.5 Hyperlipidemia, unspecified; Z72.0 Tobacco use; Z90.89 Acquired absence of other organs; Z87.442 Personal history of urinary calculi; Z90.710 Acquired absence of both cervix and uterus; Z88.8 Allergy status to other drugs, medicaments and biological substances; Z79.899 Other long term (current) drug therapy
CPT/HCPCS: 27096; G0260; J1030; Q9966

== ENCOUNTER → 2020-03-18 09:30 | Outpatient (CLI) | payer OTHER, SELFPAY | PROVIDERS: Visit Provider Neurological Surgery | DX: Z01.818 Encounter for other preprocedural examination (principal); Z03.818 Encounter for observation for suspected exposure to other biological agents ruled out; M54.16 Radiculopathy, lumbar region | CPT/HCPCS: U0003 ==

== ENCOUNTER → 2020-08-07 08:36 | Outpatient (CLI) | payer OTHER, SELFPAY ==
[2020-08-07 09:09] LABS: Blood Urea Nitrogen 16 mg/dl (7-17); Estimated Glomerular Filt Rate 86 ml/min (>60); GFR (African American) 104 ML/MIN (>60)
--- NOTE | 2020-08-07 09:47 | MR_ITS ---
PROCEDURE: MR LUMBAR SPINE WO/W CON CLINICAL INDICATION: LUMBAR RADICULOPATHY Rt hip pain. Tingling and numbness. Previous surgery in February 2020. Symptoms never got better after surgery. COMPARISON: MR MR LUMBAR SPINE WO CON from 09/13/2019 TECHNIQUE: Standard multiplanar multiecho sequences are performed without and with contrast. 3-D MIP and myelographic images are also rendered and reviewed FINDINGS: There is normal alignment. Spinal cord ends at the L1 level. L1-L2: Unremarkable. L2-L3: Minimal bulging disc with mild disc desiccation. Mild facet and ligamentum hypertrophic change. Small annular fissure. Mild bilateral lateral recess narrowing unchanged. L3-L4: Facet and ligamentum hypertrophic change with mild bilateral lateral recess and foraminal narrowing not significantly changed. L4-5: Degenerative disc disease with a broad based bulging disc and endplate hypertrophic change. Status post right-sided laminectomy. The right-sided lateral recess narrowing and canal stenosis has improved. There may have also been a partial discectomy on the right with some decrease in prominence of the right paracentral disc protrusion. There is persistent severe right-sided foraminal narrowing which is slightly improved from the previous exam. There are type 1 endplate changes on the right at this level which is slightly more severe compared to the previous exam. Decreased T1 and increased T2 signal is present at the endplates on the right. There is also decreased T2 signal laterally on the right at this level. There is 7 mm left lateral translation of L4 on L5 not significantly change with mild lumbar scoliosis convex left. There is some enhancement anterior to the thecal sac at L4-5 which may represent some developing epidural fibrosis. Enhancement also noted in the laminotomy site. The enhancement of these areas could be related to postsurgical inflammation. Developing epidural fibrosis is also consideration. No obvious abscess. L5-S1: Degenerative disc disease with mild bulging disc with facet and ligamentum hypertrophy and mild bilateral foraminal narrowing. Small left renal cyst is noted. IMPRESSION: 1. Multilevel lumbar spondylosis. Please see above for detailed description. 2. At L4-5, there is degenerative disc disease with a broad based bulging disc and endplate hypertrophic change. Status post right-sided laminectomy. The right-sided lateral recess narrowing and canal stenosis has improved. There may have also been a partial discectomy on the right with some decrease in prominence of the right paracentral disc protrusion. There is persistent severe right-sided foraminal narrowing which is slightly improved from the previous exam. There are type 1 endplate changes on the right at this level which is slightly more severe compared to the previous exam. Decreased T1 and increased T2 signal is present at the endplates on the right. There is also decreased T2 signal laterally on the right at this level. There is 7 mm left lateral translation of L4 on L5 not significantly change with mild lumbar scoliosis convex left. There is some enhancement anterior to the thecal sac at L4-5 which may represent some developing epidural fibrosis. Enhancement also noted in the laminotomy site. The enhancement of these areas could be related to postsurgical inflammation. Developing epidural fibrosis is also consideration. No obvious abscess Dictated by: John Durand MD 08/08/2020 10:06 John Durand MD in [facility] 08/08/2020 10:06
== END ==
LOC: RAD 08:37
PROVIDERS: PCP Internal Medicine Adolescent Medicine; Visit Provider Neurological Surgery
DX: M54.16 Radiculopathy, lumbar region (principal)
CPT/HCPCS: 36415; 72158; 76376; 82565; 84520; A9576

== ENCOUNTER → 2020-08-09 14:19 | Outpatient (CLI) | payer OTHER, SELFPAY ==
--- NOTE | 2020-08-09 14:22 | XR_ITS ---
PROCEDURE: XR LUMBAR SPINE BENDING ONLY CLINICAL INDICATION: RADICULOPATHY,LUMBAR REGION COMPARISON: MR MR LUMBAR SPINE WO/W CON from 08/07/2020 FINDINGS: Flexion and extension views of the lumbar show no abnormal subluxation in flexion or extension. There is degenerative disc disease at L2-L3 L3-L4 and L4-5. There is generalized vascular calcification. IMPRESSION: No abnormal subluxation in flexion or extension multilevel lumbar spondylosis. Dictated by: John Durand MD 08/09/2020 14:42 John Durand MD in [facility] 08/09/2020 14:42
== END ==
PROVIDERS: PCP Internal Medicine Adolescent Medicine; Visit Provider Physician Assistant
DX: M54.16 Radiculopathy, lumbar region (principal)
CPT/HCPCS: 72120

== ENCOUNTER → 2021-01-16 07:18 | Outpatient (CLI) | payer OTHER, SELFPAY ==
--- NOTE | 2021-01-16 07:21 | MM_ITS ---
PROCEDURE: MM DIG SCREENING MAMM BI W/CAD Digital Breast Tomosynthesis Included CLINICAL INDICATION: SCREENING There is a history of breast cancer in the patient's sister diagnosed at age 34 and another sister diagnosed at age 65. COMPARISON: MG MM DIG SCREENING MAMM BI W/CAD from 01/01/2019 MG MM DIG MAMM DX UNILAT LT CAD from 01/18/2019 MG MM DIG MAMM DX UNILAT LT CAD from 05/05/2019 TECHNIQUE: Standard CC and MLO images and 3D Tomosynthesis was obtained. R2 CAD reviewed. FINDINGS: Mild scattered fibroglandular densities are seen in both breast and the findings are fairly symmetrical bilaterally. There are 2 benign-appearing calcifications left breast. There is no suspicious lesion and no suspicious microcalcifications. IMPRESSION: Fibrofatty parenchyma with no suspicious lesions seen BI-RAD Category: 2 Benign Finding(s) FOLLOW-UP: 1YR 1 Year Follow-up (A letter has been sent to the patient regarding results of the study.) Dictated by: Dr. Syed Webb MD 01/19/2021 10:45 Dr. Syed Webb MD in [place] 01/19/2021 10:45
--- NOTE | 2021-01-16 07:21 | CT_ITS ---
PROCEDURE: CT LUNG SCREENING CLINICAL INDICATION: H/O NICOTINE DEPENDENCE Current smoker COMPARISON: CT CHESTW CT chest w con from 06/24/[address] CHEST WO/W CON from 12/09/2018 TECHNIQUE: The exam was performed on a GE Light Speed [address] scanner using 2.90 mGy CTDI. A low dose helical CT CHEST was performed on a multi-detector scanner. All CT scans at the facility use one or more dose reduction, viz: automated exposure control, ma/kV adjustment per patient size (including targeted exams where dose is matched to indication, i.e. head), or iterative reconstruction technique. The LDCT was performed in a facility that meets the criteria for the screening program. Data regarding this exam was submitted to ACR which is an approved registry. The order for this exam indicates that it came as a result of a lung cancer screening counseling shard decision-making visit that included all the elements required of such a visit including smoking cessation. The radiologist interpreting this exam meets the CMS criteria for the LDCT lung cancer screening program. The exam is reported using the Lung-RADS classification scale and reported to the ACR registry. NOTE: This study was performed for the specific purposes of lung cancer screening and is not an alternative to diagnostic chest CT. RADIATION DOSE: CTDI vol(CT dose Index-volume) = 2.90mG DLP (Dose Length Product) = mGcm FINDINGS: Since the prior study, there has been interval development of diffuse ground-glass opacities throughout both lungs, more prominent on the right, and with an upper lobe predominance. These ground-glass opacities are most prominent in the right upper lobe where some of the subsolid nodules have a solid component, the largest of which measures 5 millimeters. Again noted is mild centrilobular emphysema. Again noted is right lower lobe granuloma. The airways are patent. There are coronary calcifications. There are stable mediastinal lymph nodes, none of which are enlarged by CT criteria. There is a stable 1.6 centimeter right adrenal adenoma. There are stable bilateral axillary lymph nodes which exhibit a normal fatty hilum and are not enlarged by CT criteria. IMPRESSION: Lung-RADS Category 4B Very Suspicious Follow-up: For new large nodules that develop on an annual repeat screening CT, a one-month low-dose CT follow-up is recommended to address potentially infectious or inflammatory conditions. In addition, consider referral to pulmonology. Dictated by: Huma Sarmiento MD 01/16/2021 09:49 Huma Sarmiento MD in [place] 01/16/2021 09:49
== END ==
PROVIDERS: PCP Internal Medicine Adolescent Medicine; Visit Provider Internal Medicine Adolescent Medicine
DX: Z12.31 Encounter for screening mammogram for malignant neoplasm of breast (principal); Z87.891 Personal history of nicotine dependence; Z12.2 Encounter for screening for malignant neoplasm of respiratory organs
CPT/HCPCS: 71271; 77063; 77067

== ENCOUNTER → 2021-02-19 08:20 | Outpatient (CLI) | payer OTHER, SELFPAY ==
--- NOTE | 2021-02-19 08:22 | CT_ITS ---
PROCEDURE: CT CHEST WO CON CLINICAL INDICATION: LUNG NODULE COMPARISON: CT CHW CT CHEST W/ CONTRAST from 05/02/[address] LUNG SCREENING from 01/16/2021 TECHNIQUE: Axial images obtained with sagittal and coronal reformats. All CT scans at the facility use one or more dose reduction, viz: automated exposure control, ma/kV adjustment per patient size (including targeted exams where dose is matched to indication, i.e. head), or iterative reconstruction technique. FINDINGS: HEART AND MEDIASTINAL STRUCTURES: Scattered small mediastinal lymph nodes. Coronary artery calcifications and/or stents noted. Normal heart size. LUNGS AND PLEURAL SPACES: COPD changes with scattered small sub solid nodular opacities are once again noted. The sub solid nodules appears somewhat less apparent compared to the previous and may be inflammatory/infectious in nature. Continued 3 month follow-up recommended. One new nodule is noted in the right upper lobe image 27 series 3 at 6 mm and 1 in the left upper lobe at 4 mm image 37 series 3. No effusions. Calcified granuloma is present in the right lower lobe. BONY STRUCTURES: No acute bony abnormalities apparent. UPPER ABDOMEN: 1.8 cm hypodense lesion of the right adrenal gland consistent with an adenoma. ADDITIONAL FINDINGS: No other significant abnormalities. IMPRESSION: Scattered small sub solid pulmonary nodules once again noted. Most of these appear less apparent compared to the previous exam. There is a new 6 mm nodule in the right upper lobe and 4 mm nodule in the left upper lobe. These findings may be related underlying inflammatory/infectious process. Neoplasm not totally excluded. Please correlate with clinical parameters. Suggest continued follow-up in 3 months. Dictated by: John Durand MD 02/19/2021 11:00 John Durand MD in [place] 02/19/2021 11:00
== END ==
LOC: RAD 08:20
PROVIDERS: PCP Internal Medicine Adolescent Medicine; Visit Provider Internal Medicine Adolescent Medicine
DX: R91.8 Other nonspecific abnormal finding of lung field (principal)
CPT/HCPCS: 71250

== ENCOUNTER 2021-05-14 11:06 | Day surgery (SDC) | payer OTHER, SELFPAY ==
[2021-05-14] VITALS (13 sets, daily range): BP systolic 124–182; BP diastolic 50–87; PULSE 64–91; RESP 18–19; O2SAT 95–98; BMI 28.3
[2021-05-14 11:37] LABS: Coronavirus 19, PCR Not Detected (NotDetected); Influenza A, PCR Not Detected (NotDetected); Influenza B, PCR Not Detected (NotDetected)
[2021-05-14 11:44] LABS: Basophils # 0.1 K/mm3 (0-0.2); Basophils % 0.6 % (0.1-2.0); Eosinophils # 0.2 K/mm3 (0.0-0.4); Eosinophils % 2.3 % (0.1-12.0); Hematocrit 41.1 % (37.0-47.0); Hemoglobin 13.9 g/dL (12.2-16.2); Lymphocytes # 3.4 K/mm3 (0.7-4.5); Lymphocytes % 39.2 % (10-50); Mean Corpuscular HGB Conc 33.8 g/dL (31.8-35.4); Mean Corpuscular Hemoglobin 31.4 pg (27.0-31.2); Mean Corpuscular Volume 92.7 fl (81-99); Mean Platelet Volume 8.1 fl (7.4-10.4); Monocytes # 0.6 K/mm3 (0.1-1.0); Monocytes % 6.9 % (1.7-9.3); Neutrophils # 4.5 K/mm3 (1.8-7.8); Platelet Count 298 K/mm3 (142-424); Red Blood Count 4.43 M/mm3 (4.20-5.40); Red Cell Distribution Width 13.2 % (11.5-17.5); White Blood Count 8.7 K/mm3 (4.8-10.8)
[2021-05-14 11:45] LABS: Blood Urea Nitrogen 13 mg/dl (7-17); Calcium 8.6 mg/dl (8.4-10.2); Carbon Dioxide 25 mmol/L (22.0-30.0); Chloride 110 mmol/L (98-107); Creatinine Clearance Estimated 91 mL/min (50-200); Estimated Glomerular Filt Rate 74 ml/min (>60); GFR (African American) 89 ML/MIN (>60); Glucose 101 mg/dl (74-100); Sodium 142 mmol/L (136-145)
== END 2021-05-14 15:05 | disposition home or self-care (01) ==
LOC: CATHLAB 11:08
PROVIDERS: PCP Internal Medicine Adolescent Medicine; Visit Provider Internal Medicine
DX: R07.9 Chest pain, unspecified (principal); I25.118 Atherosclerotic heart disease of native coronary artery with other forms of angina pectoris; R94.31 Abnormal electrocardiogram [ECG] [EKG]; F17.210 Nicotine dependence, cigarettes, uncomplicated; E78.2 Mixed hyperlipidemia; J44.9 Chronic obstructive pulmonary disease, unspecified; Z79.899 Other long term (current) drug therapy
CPT/HCPCS: 80048; 85025; 93458; 99152; C1725; C1769; C9803; J1644; Q9967; U0003; U0005

== ENCOUNTER → 2021-07-06 09:13 | Outpatient (CLI) | payer OTHER, SELFPAY ==
--- NOTE | 2021-07-06 09:20 | CT_ITS ---
FINAL REPORT TECHNIQUE: After the administration of intravenous contrast, axial images through the chest were performed by computed tomography.This study was performed with techniques to keep radiation doses as low as reasonably achievable, (ALARA). Individualized dose reduction techniques using automated exposure control or adjustment of mA and/or kV according to the patient''s size were employed. CLINICAL HISTORY: LUNG NODULES, smoker COMPARISON: 02/19/2021 FINDINGS: There is a precarinal node measuring 1.2 cm. There is a small filling defect in the proximal left subclavian artery, probably related to mural thrombus. This is well seen on images 20 and 21 of series 2. The heart size is normal. There is no pericardial or pleural effusion. Bilateral pleural and parenchymal scarring is identified. Again identified are a multitude of small nodules in both lungs, many of which are ill-defined. Nodular densities have considerably improved since previous. Specific nodules in question in the right and left upper lobes are not clearly seen on today's exam. Several small pleural based foci are stable since previous. Limited images of the upper abdomen reveal a low-attenuation mass in the right adrenal gland measuring 1.4 cm consistent with an adenoma. IMPRESSION: Interval improvement in the multiple ill-defined nodules most consistent with resolving inflammatory process. Recommend follow-up CT in 6 months. Minimal mural thrombus in the proximal left subclavian artery. Right adrenal adenoma. Reviewed, Interpreted and Dictated by Chai Brown MD Transcribed by Rena Bravo Authenticated by Chai Brown MD on 07/06/2021 11:17:18 AM [facility]
--- NOTE | 2021-07-06 09:20 | XR_ITS ---
FINAL REPORT TECHNIQUE: Bone densitometry calculations of the lumbar spine and left hip were obtained. CLINICAL HISTORY: osteopenia FINDINGS: Using L1-4, the bone mineral density of the spine is 1.044 g/cm2, corresponding to T-score of 0.0. Using the left hip, the bone mineral density of the femoral neck is 0.639 g/cm2, corresponding to a T-score of -2.5. Using the right hip, the bone mineral density of the femoral neck is 0.587 g/cm2, corresponding to a T-score of -2.4. NOTE: T-score: Standard deviation compared with peak bone mass of young adult mean. *Following the recommendations of the International Society of Bone densitometry, classification of hip BMD is based on the lower of two T-scores; total hip or femoral neck. IMPRESSION: Normal bone meld mineral density of the lumbar spine however this may be artificially elevated due to degenerative disease. Diminished bone mineral density of the left hip consistent with borderline osteoporosis. Diminished bone mineral density of the right hip consistent with osteopenia. FRAX not reported due to menopausal woman. Reviewed, Interpreted and Dictated by Chai Brown MD Transcribed by Rena Bravo Authenticated by Chai Brown MD on 07/06/2021 02:40:49 PM [facility]
== END ==
LOC: RAD 09:13
PROVIDERS: PCP Internal Medicine Adolescent Medicine; Visit Provider Internal Medicine Adolescent Medicine
DX: R91.8 Other nonspecific abnormal finding of lung field (principal); M85.80 Other specified disorders of bone density and structure, unspecified site
CPT/HCPCS: 71260; 77080; Q9967

== ENCOUNTER 2021-08-31 08:51 | Day surgery (SDC) | payer OTHER, SELFPAY ==
[2021-08-31 08:57] VITALS: BP 153/53; PULSE 96; RESP 20; TEMP 36.6; O2SAT 100; BMI 26.6
[2021-08-31 09:02] VITALS: BP 132/66; PULSE 82; RESP 18; O2SAT 97
[2021-08-31 09:03] VITALS: BP 126/56; PULSE 86; RESP 18; O2SAT 97
--- NOTE | 2021-08-31 09:07 | P.PCN_ITS ---
- Procedure Date: 08/31/21 Time: 09:07 Anesthesiologist:: Harvey Peres CRNA Complications:: None Pre-procedure Diagnosis:: Left sacroiliitis Post-procedure Diagnosis:: Same Indications for Procedure:: Patient is a pleasant 60-year-old female that comes our clinic today with repeat SI joint pain on the left. She has extreme point tenderness over the left SI joint. Patient has had this in the past. She has also had left SI joint injection with significant improvement I have seen 2 to 3 years. I suggest repeat left SI joint injection. Patient agrees. Risk and benefits were dis cussed. Patient wishes to proceed. Procedure Details:: Procedure: Left sacroiliac injection under fluoroscopy Informed consent was obtained and the risk and benefits of the procedure were explained to the patient.~ The patient was taken to the procedure room and noninvasive monitors were placed including noninvasive blood pressure cuff and pulse oximeter.~ The patient was placed prone on the procedure table.~ The~ left hip was cleansed using Betadine as a cleansing solution.~ C-arm fluorosocpy was used to view the left SI joint.~ The skin and subcutaneous tissues were anesthetized using Lidocaine 1.5% and a 25-gauge needle.~ After this, a 22-gauge spinal needle was inserted under fluoroscopic guidance into the inferior aspect of the left SI joint.~ Omnipaque dye was injected and a good spread was seen throughout the joint.~ After this, approximately 5 mL of bupivacaine 0.25% and Depo-Medrol 40 mg was incrementally injected into the sacroiliac joint.~ The pat ient tolerated the procedure well with no complications.~ The patient was observed in the Pain Clinic for a period of 30-45 minutes, then discharged home neurologically intact.~ Plan and Disposition:: Patient was discharged without incident.
[2021-08-31 09:10] VITALS: BP 153/85; PULSE 76; RESP 20
== END 2021-08-31 09:10 | disposition home or self-care (01) ==
PROVIDERS: PCP Internal Medicine Adolescent Medicine; Visit Provider Nurse Anesthetist, Certified Registered
DX: M46.1 Sacroiliitis, not elsewhere classified (principal)
CPT/HCPCS: 27096; G0260; J1040

== ENCOUNTER → 2022-01-26 09:32 | Outpatient (CLI) | payer OTHER, SELFPAY ==
[2022-01-26 10:26] LABS: Basophils # 0.1 K/mm3 (0-0.2); Basophils % 1.2 % (0.1-2.0); Eosinophils # 0.1 K/mm3 (0.0-0.4); Eosinophils % 1.6 % (0.1-12.0); Hematocrit 43.6 % (37.0-47.0); Hemoglobin 13.8 g/dL (12.2-16.2); Lymphocytes # 2.4 K/mm3 (0.7-4.5); Lymphocytes % 30.3 % (10-50); Mean Corpuscular HGB Conc 31.7 g/dL (31.8-35.4); Mean Corpuscular Volume 97.8 fl (81-99); Mean Platelet Volume 8.9 fl (7.4-10.4); Monocytes # 0.6 K/mm3 (0.1-1.0); Neutrophils # 4.7 K/mm3 (1.8-7.8); Neutrophils % 59.8 % (37.0-80.0); Platelet Count 282 K/mm3 (142-424); Red Blood Count 4.46 M/mm3 (4.20-5.40); Red Cell Distribution Width 13.4 % (11.5-17.5); White Blood Count 7.8 K/mm3 (4.8-10.8)
[2022-01-26 11:05] LABS: Alanine Aminotransferase 29 U/L (12-78); Albumin Level 4.5 g/dl (3.5-5.0); Alkaline Phosphatase 111 U/L (38-126); Aspartate Amino Transferase 40 U/L (14-36); Bilirubin,Total 0.6 mg/dl (0.2-1.3); Blood Urea Nitrogen 11 mg/dl (7-17); Calcium 9.7 mg/dl (8.4-10.2); Carbon Dioxide 28 mmol/L (22.0-30.0); Chloride 105 mmol/L (98-107); Chol/HDL Ratio 2.1 (1-3.5); Cholesterol 135 mg/dl (140-200); Estimated Glomerular Filt Rate 102 ml/min (>60); GFR (African American) 124 ML/MIN (>60); Globulin 2.3 g/dL (1.3-3.2); Glucose 93 mg/dl (74-100); HDL Cholesterol 64 mg/dl (40-60); Sodium 142 mmol/L (136-145); Total Protein,Serum 6.8 g/dl (6.3-8.2); Triglycerides 62 mg/dl (30-150); VLDL Cholesterol 12 mg/dL (0-40)
[2022-01-26 11:08] LABS: Anion Gap 13.1 mEq/L (5-15); Potassium 4.1 mmoL/L (3.5-5.1)
[2022-01-26 11:10] LABS: Hemoglobin A1C 5.1 % (4.0-6.0)
[2022-01-26 11:16] LABS: Direct LDL Cholesterol 52.48 mg/dL (100-129)
[2022-01-26 11:22] LABS: 25-OH Vitamin D, Total 26.5 ng/mL (30-100)
[2022-01-26 11:36] LABS: Thyroid Stimulating Hormone 1.59 uIU/mL (0.465-4.68)
[2022-01-26 11:55] LABS: Vitamin B12 991 pg/mL (239-931)
[2022-01-27 08:09] LABS: FSH 72.3 mIU/mL (.); LH 27.2 mIU/mL (.)
== END ==
PROVIDERS: PCP Internal Medicine Adolescent Medicine; Visit Provider Internal Medicine Adolescent Medicine
DX: Z00.00 Encounter for general adult medical examination without abnormal findings (principal); N95.1 Menopausal and female climacteric states; R53.81 Other malaise; R53.83 Other fatigue; E55.9 Vitamin D deficiency, unspecified; Z79.899 Other long term (current) drug therapy
CPT/HCPCS: 36415; 80053; 80061; 82306; 82607; 83001; 83002; 83036; 84443; 85025

== ENCOUNTER → 2023-03-19 07:17 | Outpatient (CLI) | payer BC, SELFPAY ==
--- NOTE | 2023-03-19 07:21 | MM_ITS ---
PROCEDURE INFORMATION: Exam: MG Bilateral Screening 3D Mammography Exam date and time: 03/19/2023 8:08 AM Age: 62 years old Clinical indication: Screening mammogram TECHNIQUE: Imaging protocol: Bilateral Screening tomosynthesis and 2D mammography including computer-aided detection (CAD) when performed. COMPARISON: 1. MG MM DIG SCREENING MAMM BI W/CAD 01/16/2021 8:03 AM 2. MG MM DIG MAMM DX UNILAT LT CAD 05/05/2019 3:13 PM 3. MG MM DIG MAMM DX UNILAT LT CAD 01/18/2019 2:17 PM 4. MG MM DIG SCREENING MAMM BI W/CAD 01/01/2019 3:30 PM FINDINGS: MAMMOGRAPHY: Breast composition: There are scattered areas of fibroglandular density. Mass: None. Architectural distortion: No new or suspicious architectural distortion. Calcifications: No new or suspicious calcifications are present Asymmetric density: No new or suspicious asymmetric density is present Skin thickening: None. Axillary adenopathy: None. IMPRESSION: No mammographic evidence of malignancy. Recommend annual screening mammography unless otherwise clinically indicated. ASSESSMENT: BI-RADS category 1: Negative
--- NOTE | 2023-03-19 07:22 | CT_ITS ---
FINAL REPORT TECHNIQUE: Axial images were obtained from the lung apex to the mid abdomen by computed tomography. This study was performed with techniques to keep radiation doses as low as reasonably achievable (ALARA). Individualized dose reduction techniques using automated exposure control or adjustment of mA and/or kV according to the patient's size were employed. CLINICAL HISTORY: H/O TOBACCO USE smoker, 1/2 ppd x 40 years COMPARISON: 07/06/2021 FINDINGS: CHEST CT LOW DOSE CTDI vol (mGy): 2.90 DLP (mGy-cm): 106.81 There are few small scattered mediastinal lymph nodes, similar to previous. Right hilar and subcarinal lymph nodes are partially calcified. There is dense coronary artery calcification. There is a tiny nodule in the periphery of the right upper lobe measuring 4 mm, similar to prior. Finding is best seen on image 18 of series 4. There are a few similar appearing nodules measuring up to 3 mm in the periphery of the left upper lobe. Findings are best seen on images 30 and 32 of series 4. Limited images of the upper abdomen reveal a 1.4 cm low-attenuation nodule in the right adrenal consistent with an adenoma. IMPRESSION: Stable nodules as detailed above. Lung RADS category 2. Recommend 12 month follow-up low-dose chest CT. Reviewed, Interpreted and Dictated by Chai Brown MD Transcribed by Rena Bravo Authenticated and [facility]
--- NOTE | 2023-03-19 07:22 | XR_ITS ---
FINAL REPORT TECHNIQUE: Bone densitometry calculations of the lumbar spine and left hip were obtained. CLINICAL HISTORY: POST MENOPAUSAL FINDINGS: Using L1-4, the bone mineral density of the spine is 1.057 g/cm2, corresponding to T-score of 0.1 but may be artificially elevated secondary to hypertrophic changes. Using the left hip, the bone mineral density of the femoral neck is 0.643 g/cm2, corresponding to a T-score of -2.4. Using the right hip, the bone mineral density of the femoral neck is 0.638 g/cm2, corresponding to a T-score of -1.9. NOTE: T-score: Standard deviation compared with peak bone mass of young adult mean. *Following the recommendations of the International Society of Bone densitometry, classification of hip BMD is based on the lower of two T-scores; total hip or femoral neck. IMPRESSION: Diminished bone mineral density of the lumbar spine hips consistent with osteopenia. Reviewed, Interpreted and Dictated by Chai Brown MD Transcribed by Rena Bravo Authenticated and [facility]
== END ==
LOC: RAD 07:18
PROVIDERS: PCP Internal Medicine; Visit Provider Nurse Practitioner Family
DX: Z78.0 Asymptomatic menopausal state (principal); Z12.31 Encounter for screening mammogram for malignant neoplasm of breast; Z72.0 Tobacco use
CPT/HCPCS: 71271; 77063; 77067; 77080

== ENCOUNTER 2024-04-21 15:01 | Outpatient (CLI) | payer BC, SELFPAY ==
--- NOTE | 2024-04-21 15:05 | XR_ITS ---
FINAL REPORT TECHNIQUE: Bone densitometry calculations of the lumbar spine and left hip were obtained. CLINICAL HISTORY: SCREENING COMPARISON: 03/19/2023 FINDINGS: Using L1-4, the bone mineral density of the spine is 1.096 g/cm2, corresponding to T-score of 0.4. Using the left hip, the bone mineral density of the femoral neck is 0.679 g/cm2, corresponding to a T-score of -2.2. Using the right hip, the bone mineral density of the femoral neck is 0.597 g/cm?, corresponding to a T-score of -2.3. NOTE: T-score: Standard deviation compared with peak bone mass of young adult mean. *Following the recommendations of the International Society of Bone densitometry, classification of hip BMD is based on the lower of two T-scores; total hip or femoral neck. IMPRESSION: Diminished bone mineral density of the bilateral hips consistent with osteopenia. Normal bone mineral density of the lumbar spine. Reviewed, Interpreted and Dictated by Chai Brown MD Transcribed by Kathrine Beltran Authenticated and [facility]
== END 2024-04-21 23:59 | disposition home or self-care (01) ==
LOC: RAD 15:01
PROVIDERS: PCP Internal Medicine; Visit Provider Physician Assistant
DX: Z78.0 Asymptomatic menopausal state (principal)
CPT/HCPCS: 77080

== ENCOUNTER 2024-05-07 15:13 | Outpatient (CLI) | payer BC, SELFPAY ==
--- NOTE | 2024-05-07 15:15 | CT_ITS ---
FINAL REPORT TECHNIQUE: Axial CT images of the chest were obtained without contrast. Low-dose protocol was utilized. This study was performed with techniques to keep radiation doses as low as reasonably achievable (ALARA). Individualized dose reduction techniques using automated exposure control or adjustment of mA and/or kV according to the patient's size were employed. CLINICAL HISTORY: LUNG SCREENING. patient is currently a smoker and smokes 1 PPD. patient has been a smoker for 40 years. COMPARISON: 03/19/2023 FINDINGS: CT CHEST WITHOUT, LOW DOSE SCREENING CT Di Vol: 2.90 mGy DLP: 116.46 mGy*cm There is no axillary, mediastinal, or hilar adenopathy. The heart size is normal. There is no pleural or pericardial effusion. The lung windows show a new cavitary nodule in the left upper lobe measuring 8 mm on image 30 of series 3. There is a 2 mm peripheral nodule in the left upper lobe on image 38 which is stable. A 3 mm left lower lobe nodule on image 50 is stable. There is a 3 mm right upper lobe nodule on image 28 which is also stable.. Limited images of the upper abdomen demonstrate mild right adrenal enlargement, probable adenoma.. IMPRESSION: New 8 mm cavitary nodule left upper lobe. LR Category 4B: Lesion is probably too small for PET characterization. Three-month follow-up low-dose chest CT is recommended per Fleischner criteria. Reviewed, Interpreted and Dictated by Sawyer Marrero MD Transcribed by Shayy Colon Authenticated and [facility]
== END 2024-05-07 23:59 | disposition home or self-care (01) ==
LOC: RAD 15:14
PROVIDERS: PCP Internal Medicine; Visit Provider Physician Assistant
DX: Z87.891 Personal history of nicotine dependence (principal)
CPT/HCPCS: 71271

== ENCOUNTER 2024-09-02 15:13 | Outpatient (CLI) | payer BC, SELFPAY ==
--- OUTSIDE RECORDS SUMMARY | 2024-08-13 07:30 | XMS_ITS ---
Author Organization [facility] [place] Address [address] [facility] [address] [place] [address] Care Team Providers Care Food Safety Auditor Name Role Phone Santiago Mckeon Primary Care Provider Lidia Gabriel Unavailable [phone] Allergies Allergen (clinical drug ingredient) Drug/Non Drug Allergy documented on EMR Reaction Allergy Type Onset Date Status meloxicam Meloxicam angioedema Drug Allergy Active diclofenac Diclofenac hives Drug Allergy Activ e Reason For Referral Reason Please refer to PT a t [facility] for sciatica and low back pain. Diagnosis 1 Lumbago with sciatic a, right side (M54.41) Referral Organization [facility] Referring Provider First Name Lidia Referring Provider Last Name Harvey Referring Provider Speciality Family Pra ctice Referred Organization [facility] Referred Address [address] [facility] [address] [facility], [place],[address],[place] Referred Provider Specialty Physical The rapist Referral Priority Routine REASON FOR VISIT lower back pain radiating down legs Medications Medication SIG (Take, Route, Frequency, Duration) Notes Start Date End Date Status Methocarbamol 500 MG as directed Orally every 8 hours for 30 days Take 1-2 tablets every 8 hours as needed muscle spasm. 08/13/2024 Active Atorvastatin Calcium 40 MG 1 tab(s) oral ly once a day for 90 days Active Alendronate Sodium 70 MG 1 tab(s) orally once a week for 90 days Active Venlafaxine HCl ER 150 MG 1 cap(s) orall y once a day for 90 days Active Problems Problem Type SNOMED Code ICD Code Onset Dates Problem Status W/U Status Risk Notes Problem 81906606 Other polyneuropathy (G62.89) Active confirmed Vital Signs Temperature 98 degrees Fahrenheit 08/13/2024 Heart Rate 78 /min 08/13/2024 Blood pressure systolic 142 mm Hg 08/14/19 25 Blood pressure diastolic 82 mm Hg 025 Height 5 ft 5 in in 08/13/2024 Weight 148 lbs 08/13/2024 BMI 24.63 kg/m2 08/13/2024 Encounters Encounter Location Date Provider Diagnosis [facility] [address] [address] 08/13/2024 Lidia Gabriel Lumbago with sciatic a, right side M54.41 ; Lumbago with sciatica, left side M54.42 ; Other polyneuropathy G62.89 ; B12 deficiency E53.8 and Vitamin D deficiency E55.9 Assessments Encounter Date Diagnosis (ICD Code) Assessment Notes Treatment Notes Treatment Clinical Notes Section Notes 08/13/2024 Lumbago with sciatica, right side (ICD-10 - M54.41) Will start with x-ray of spine. If continues may need hip/pelvis x-rays. I personally will review all labs once final. Discussed the etiology and expected course of back pain. Discussed the role of pain medications/anti- inflammatories including Ibuprofen and Tylenol, heat pad, stretches, and to walk 30 mins a day. Steroid shot today and PRN muscle relaxer ordered. Counseled patient to not drive when taking this medication. Also, discussed signs and symptoms of worsening condition that may warrant reassessment in clinic or ED. PT ordered. Patient and family voice understanding and agree with the plan of care above. 08/13/2024 Lumbago with sciatica, left side (ICD-10 - M54.42) As above. 08/13/2024 Other polyneuropathy (ICD-10 - G62.89) I personally will review all labs once final. 08/13/2024 B12 deficiency (ICD-10 - E53.8) I personally will review all labs once final. 08/13/2024 Vitamin D deficiency (ICD-10 - E55.9) I personally will review all labs once final. Plan Of Treatment Medication Medication Name Sig Start Date Stop Date Notes Methocarbamol 500 MG as directed Orally every 8 hours for 30 days 08/13/2024 Treatment Notes Assessment Notes Lumbago with sciatica, right side Will s tart with x-ray of spine. If continues may need hip/pelvis x-rays. I personally will review all labs once final. Discussed the etiology and expected course of back pain. Discussed the role of pain medications/anti-inflammatories including Ibuprofen and Tylenol, heat pad, stretches, and to walk 30 mins a day. Steroid shot today and PRN muscle relaxer ordered. Counseled patient to not drive when taking this medication. Also, discussed signs and symptoms of worsening condition that may warrant reassessment in clinic or ED. PT ordered. Patient and family voice understanding and agree with the plan of care above. Lumbago with sciatica, left side As abov e. Other polyneuropathy I personally will r eview all labs once final. B12 deficiency I personally will re view all labs once final. Vitamin D deficiency I personally will r eview all labs once final. Pending Test Test Name Order Date X ray : Spines, Lumbosacral 08/13/2024 COMPREHENSIVE METABOLIC PANEL (44517) CBC (INCLUDES DIFF/PLT) (6399) VITAMIN B12 (927) 08/13/2024 TSH W/REFLEX TO FT4 (47416) 08/13/2024 VITAMIN D,25-OH,TOTAL,IA (29940) 025 Referrals Referral Date Details 08/13/2024 08/13/2024, Please r opaler to PT at [facility] for sciatica and low back pain., [address] [place], [address], Next Appt Details Follow Up: pending labs and improvement with PT, Reason: Medications Administered Medication Instructions Date of Administration Dosage Notes Dexamethasone 4mg Injection 08/13/2024 4 mg Progress Notes * Jennifer NOVOAOB:[birth year] (63 yo F)Acc No.[id number]:08/13/2024 Progress Notes Patient: Jennifer JACOBSON Provider: LAYLA Shelby :1960 A ge:63 Y S ex:Female Date:08/13/2024 Address:[address], [place], [id number] Pcp:Santiago Mckeon Subjective: * Chief Complaints: * 1 . Lower back pain radiating down legs. * HPI: g en: Patient presents with low back pain starting 6 weeks ago. She has radiation of pain around her hips to tops of thighs and posterior legs down to heels bilaterally. She has been taking Tylenol arthritis, ice, and started seeing a chiropracter, but no improvement so she presents today for further evaluation. She has a history of back injury 10+ years ago and has had a laminectomy by Dr. Caballero in the past. She denies bowel/bladder incontinence, perianal parasethesia. She is able to walk, but having difficulty pushing her chiropractic neurologist and going down her stairs consistently. * ROS: A LLERGY: no R unny nose. R ESPIRATORY: no S hortness of breath. n o C ough. ? C ONSTITUTIONAL: no L oss of appetite. n o F ever. D ERMATOLOGY: no R riana. E NT: no C ough. n o S ore throat. G ASTROENTEROLOGY: no N ausea. n o A bdominal pain. M USCULOSKELETAL: Joint stiffness y es. J oint pain y es. n o?Joint swelling. * Medical History: T obacco Use, normal colonoscopy September 2015 - repeated 02/11 with polyps - 5 year f/u recommended, Last mammogram 05/13 - 9 month f/u with ernesto recommended -mammogram done 02/11 normal, 1 year follow-up, L4-5 DDD with disc bulge, Osteopenia on dexa 01/09. Alendronate started- normal dexa 07/13, Low-dose CT scan January 2021 with 3- month follow-up recommended - improved nodules on scan 07/13 - 6 month f/u recommended. * Medications: T aking Atorvastatin Calcium 40 MG Tablet 1 tab(s) orally once a day , Taking Alendronate Sodium 70 MG Tablet 1 tab(s) orally once a week , Taking Venlafaxine HCl ER 150 MG Capsule Extended Release 24 Hour 1 cap(s) orally once a day , Discontinued Methocarbamol 500 MG Tablet as directed orally every 8 hours , Medication List reviewed and reconciled with the patient * Allergies: M eloxicam: angioedema - Allergy, Diclofenac: hives. Objective: * Vitals: N elliot: dw, Pain: 4, Temp: 98, RR: 18, HR: 78, BP: 142/82, Ht: 5 ft 5 in, Wt: 148, BMI:24.63. * Examination: G eneral Examination: General P leasant and Cooperative, NAD on RA,. Oral cavity: M oist membranes. Chest: n ormal shape and expansion. Heart: R RR, No m/r/g, No edema,. Lungs: L ungs clear, No wheezes, crackles or rhonchi, Good air movement,. Abdomen: S oft, non-tender, No organomegaly or peritoneal signs.. Neurologic Exam: n o focal signs neurological deficits.? Skin: w ithout acute rashes. Back: n ormal, very low back along sacrum and ischium ttp, no open little lesions, central spine vertebra or SI joints not ttp. Extremities: 2 + patellar and achilles reflexes bilaterally, equal lower leg strength bilaterally including hip flexion, knee flexion and extension, and dorsi/plantar flexion, + FABERs bilaterally. Psych N ormal Mood/Affect. Assessment: * Assessment: 1. L umbago with sciatica, right side - M54.41 (Primary) 2 . L umbago with sciatica, left side - M54.42 3 . O ther polyneuropathy - G62.89 4 . B 12 deficiency - E53.8 5 . V itamin D deficiency - E55.9 ? Plan: * Treatment: * Notes: Will start with x-ray of spine. If continues may need hip/pelvis x-rays. I personally will review all labs once final. Discussed the etiology and expected course of back pain. Discussed the role of pain medications/anti- inflammatories including Ibuprofen and Tylenol, heat pad, stretches, and to walk 30 mins a day. Steroid shot today and PRN muscle relaxer ordered. Counseled patient to notdrive when taking this medication. Also, discussed signs and symptoms of worsening condition that may warrant reassessment in clinic or ED. PT ordered. Patient and family voice understanding and agree with the plan of care above.? Referral To: ?Reason:Please refer to PT at [facility] for sciatica and low back pain. 2.?Lumbago with sciatica, left side?LAB: COMPREHENSIVE METABOLIC PANEL (00764) ?LAB: CBC (INCLUDES DIFF/PLT) (6399) ?LAB: VITAMIN B12 (927) ?LAB: TSH W/REFLEX TO FT4 (55273) ?LAB: VITAMIN D,25-OH,TOTAL,IA (72904) ?Imaging: X ray : Spines, Lumbosacral* Lidia Gabriel 08/13/2024 12:00:22 PM EDT > Please include both lumbar AND sacral spine. * Notes: As above.??3.?Other polyneuropathy?LAB: COMPREHENSIVE METABOLIC PANEL (96520) ?LAB: CBC (INCLUDES DIFF/PLT) (6399) ?LAB: VITAMIN B12 (927) ?LAB: TSH W/REFLEX TO FT4 (61087) ?LAB: VITAMIN D,25-OH,TOTAL,IA (50490) Notes: I personally will review all labs once final.??4.?B12 deficiency?LAB: COMPREHENSIVE METABOLIC PANEL (00129) ?LAB: CBC (INCLUDES DIFF/PLT) (6399) ?LAB: VITAMIN B12 (927) ?LAB: TSH W/REFLEX TO FT4 (17671) ?LAB: VITAMIN D,25-OH,TOTAL,IA (18415) Notes: I personally will review all labs once final.??5.?Vitamin D deficiency?LAB: COMPREHENSIVE METABOLIC PANEL (33773) ?LAB: CBC (INCLUDES DIFF/PLT) (6399) ?LAB: VITAMIN B12 (927) ?LAB: TSH W/REFLEX TO FT4 (09858) ?LAB: VITAMIN D,25-OH,TOTAL,IA (52016) Notes: I personally will review all labs once final.?? * Therapeutic Injections: Dexamethasone 4mg Injection : 4 mg (Route: Intramuscular) given by ESTEFANY Lr on right gluteus * Procedure Codes: J 1100 Dexamethasone Sodium Phosphate 4mg Injection, 58341 THERAPEUTIC ADMINISTRATION * Follow Up: p ending labs and improvement with PT * * Sign off status: Completed true * Provider: LAYLA Shelby Date: 0 08/13/2024 Generated for Justin garcia/Armin/eTransmitting on: 0 09/02/2024 03:23 PM EDT History and Physical Notes * HPI (History of Present Illness) Category Sub-Category Detail Notes Category Not es gen Patient present s with low back pain starting 6 weeks ago. She has radiation of pain around her hips to tops of thighs and posterior legs down to heels bilaterally. She has been taking Tylenol arthritis, ice, and started seeing a chiropracter, but no improvement so she presents today for further evaluation. She has a history of back injury 10+ years ago and has had a laminectomy by Dr. Caballero in the past. She denies bowel/bladder incontinence, perianal parasethesia. She is able to walk, but having difficulty pushing her chiropractic neurologist and going down her stairs consistently. Examination Category Sub-Category Detail Notes Category Not es General Examination Heart: RRR, No m/r/g, No jovany ma, Lungs: Lungs clear, No whee zes, crackles or rhonchi, Good air movement, Abdomen: Soft, non-tender, No organomegaly or peritoneal signs. Extremities: 2+ patellar and achi lles reflexes bilaterally, equal lower leg strength bilaterally including hip flexion, knee flexion and extension, and dorsi/plantar flexion, + FABERs bilaterally Skin: without acute rashes Neurologic Exam: no focal signs neuro logical deficits Oral cavity: Moist membranes Back: normal, very low ayesha k along sacrum and ischium ttp, no open little lesions, central spine vertebra or SI joints not ttp Chest: normal shape and exp ansion General Pleasant and Coopera tive, NAD on RA, Psych Normal Mood/Affect Consultation Request Notes Referral Date Referring Provider Referred Provider Not es 08/13/2024 Lidia Gabriel , Please refer to PT at [facility] for sciatica and low back pain.
--- OUTSIDE RECORDS SUMMARY | 2024-08-17 08:18 | XMS_ITS ---
Author Organization [facility] Address [address] [place] [address] Care Team Providers Care Swat Team Member Name Role Phone Santiago Mckeon Primary Care Provider GabrielLidia rivera Nichole [phone] Encounters Encounter Location Date Provider Diagnosis [facility] [address] [place] [address] 08/17/2024 Lidia Gabriel Lumbago with sciatica, right side M54.41 Assessments Encounter Date Diagnosis (ICD Code) Assessment Notes Treatment Notes Treatment Clinical Notes Section Notes 08/17/2024 Lumbago with sciatica, right side (ICD-10 - M54.41) Plan Of Treatment Pending Test Test Name Order Date Physical Therapy Eval and Treat 08/18/19 25 Progress Notes * Jennifer NOVOAOB:[birth year] (63 yo F)Acc No.[id number]:08/17/2024 Patient: Jennifer JACOBSON :1960 A ge:63 Y S ex:Female Address:[address] [place], [address] Subjective: * Chief Complaints: * * Medical History: * Surgical History: * Hospitalization/Major Diagno stic Procedure: * Medications: Objective: * Vitals: * Physical Examination: Assessment: * Assessment: 1. L umbago with sciatica, right side - M54.41 Plan: * Treatment: * Procedure Codes: * true * Date: Generated for Justin garcia/Armin/Huber on: 0 09/02/2024 03:23 PM EDT
--- NOTE | 2024-09-02 15:16 | XR_ITS ---
FINAL REPORT CLINICAL HISTORY: LUMBAGO W/ SCIATICA B/L SIDES COMPARISON: 08/09/2020 FINDINGS: LUMBAR SPINE Five views were obtained. There is no acute fracture. There is 10 degree scoliosis convex to the right. There are advanced changes of degenerative disc disease at L4-5 with endplate sclerosis. Facet sclerosis is seen in the lower lumbar spine. There is dense vascular calcification of the abdominal aorta and iliac vessels. There is no malalignment. IMPRESSION: Degenerative and chronic appearing findings. Reviewed, Interpreted and Dictated by Chai Brown MD Transcribed by Rena Bravo Authenticated and [facility]
--- OUTSIDE RECORDS SUMMARY | 2024-09-02 15:23 | XMS_ITS | Patient Health Record ---
Author Organization [facility] Address [address] [place] [address] Care Team Providers Care Forestry Support Specialist Name Role Phone Santiago Mckeon Primary Care Provider Lidia Gabriel Unavailable [phone] Migration, Provider Unavailable Unavailable Allergies Allergen (clinical drug ingredient) Drug/Non Drug Allergy documented on EMR Reaction Allergy Type Onset Date Status meloxicam Meloxicam angioedema Drug Allergy Active diclofenac Diclofenac hives Drug Allergy Activ e Results Component Value Reference Range Notes DEXA Hip and Spine - Screeni ng Reviewed date:04/23/2024 09:41:35 AM Interpretation: Performing Lab: Notes/Report: LIPID PANEL, STANDARD (7600) Reviewed date:04/23/2024 02:23:08 PM Interpretation: Performing Lab:CB, [facility] [id number] [facility] Center[facility]zftDZ[address] [place] Notes/Report: NON-FASTING; NON-FASTING; NON-FASTING; NON-FASTING; NON-FAST FASTING:YES FASTING: YES CHOLESTEROL, TOTAL 202 <200 mg/dL HDL CHOLESTEROL 91 > OR = 50 mg/dL TRIGLYCERIDES 98 <150 mg/dL LDL-CHOLESTEROL 92 Reference range: <100 Desirable range <100 mg/dL for primary prevention; <70 mg/dL for patients with CHD or diabetic patients with > or = 2 CHD risk factors. LDL-C is now calculated using the Lucero calculation, which is a validated novel method providing better accuracy than the Friedewald equation in the estimation of LDL-C. Geovany MIJARES et al. JEFFRY. 2013;310(19): 6047-7417 (http://education.[employer]faq/ZCB677) CHOL/HDLC RATIO 2.2 <5.0 (calc) NON HDL CHOLESTEROL 111 <130 mg/dL (calc) For patients with diabetes plus 1 major ASCVD risk factor, treating to a non-HDL-C goal of <100 mg/dL (LDL-C of <70 mg/dL) is considered a therapeutic option. COMPREHENSIVE METABOLIC PANBobby Siu (15855) Reviewed date:04/23/2024 02:23:09 PM Interpretation: Performing Lab:FABIAN, [facility] [id number] [employer], GraffitiTechWevzHL[address] [place] Notes/Report: NON-FASTING; NON-FASTING; NON-FASTING; NON-FASTING; NON-FAST FASTING:YES FASTING: YES GLUCOSE 99 65-99 mg/dL Fasting reference interval UREA NITROGEN (BUN) 9 7-25 mg/dL CREATININE 0.71 0.50-1.05 mg/dL EGFR 97 > OR = 60 mL/min/1.73m2 BUN/CREATININE RATIO SEE NOTE: 6-22 (calc) Not Reported: BUN and Creatinine are within reference range. SODIUM 142 135-146 mmol/L POTASSIUM 4.4 3.5-5.3 mmol/L CHLORIDE 105 98-110 mmol/L CARBON DIOXIDE 28 20-32 mmol/L CALCIUM 9.7 8.6-10.4 mg/dL PROTEIN, TOTAL 7.1 6.1-8.1 g/dL ALBUMIN 4.5 3.6-5.1 g/dL GLOBULIN 2.6 1.9-3.7 g/dL (calc) ALBUMIN/GLOBULIN RATIO 1.7 1.0-2.5 (calc) BILIRUBIN, TOTAL 0.6 0.2-1.2 mg/dL ALKALINE PHOSPHATASE 102 37-153 U/L AST 23 10-35 U/L ALT 19 6-29 U/L CBC (INCLUDES DIFF/PLT) (639 9) Reviewed date:04/23/2024 02:23:09 PM Interpretation: Performing Lab:FABIAN, [facility] [address], GraffitiTechFwlpJU[address] [place] Notes/Report: NON-FASTING; NON-FASTING; NON-FASTING; NON-FASTING; NON-FAST FASTING:YES FASTING: YES WHITE BLOOD CELL COUNT 7.3 3.8-10.8 Thousand/ uL RED BLOOD CELL COUNT 4.44 3.80-5.10 Million/uL HEMOGLOBIN 14.2 11.7-15.5 g/dL HEMATOCRIT 41.2 35.0-45.0 % MCV 92.8 80.0-100.0 fL MCH 32.0 27.0-33.0 pg MCHC 34.5 32.0-36.0 g/dL For adults, a slight decrease in the calculated MCHC value (in the range of 30 to 32 g/dL) is most likely not clinically significant; however, it should be interpreted with caution in correlation with other red cell parameters and the patient's clinical condition. RDW 12.6 11.0-15.0 % PLATELET COUNT 269 140-400 Thousand/uL MPV 10.9 7.5-12.5 fL ABSOLUTE NEUTROPHILS 4000 9937-5028 cells/uL ABSOLUTE LYMPHOCYTES 2343 850-3900 cells/uL ABSOLUTE MONOCYTES 723 200-950 cells/uL ABSOLUTE EOSINOPHILS 183 15-500 cells/uL ABSOLUTE BASOPHILS 51 0-200 cells/uL NEUTROPHILS 54.8 LYMPHOCYTES 32.1 MONOCYTES 9.9 EOSINOPHILS 2.5 BASOPHILS 0.7 HEMOGLOBIN A1c (496) Reviewed date:04/23/2024 02:23:09 PM Interpretation: Performing Lab:FABIAN, [facility] [id number] [facility] [facility] SystemCutgBF[address] [place] Notes/Report: NON-FASTING; NON-FASTING; NON-FASTING; NON-FASTING; NON-FAST FASTING:YES FASTING: YES HEMOGLOBIN A1c 5.3 <5.7 % of total Hgb For the purpose of screening for the presence of diabetes: <5.7% Consistent with the absence of diabetes 5.7-6.4% Consistent with increased risk for diabetes (prediabetes) > or =6.5% Consistent with diabetes This assay result is consistent with a decreased risk of diabetes. Currently, no consensus exists regarding use of hemoglobin A1c for diagnosis of diabetes in children. According to [place] Diabetes Association (ADA) guidelines, hemoglobin A1c <7.0% represents optimal control in non- diabetic patients. Different metrics may apply to specific patient populations. Standards of Medical Care in Diabetes(ADA). TSH W/REFLEX TO FT4 (08834) Reviewed date:04/23/2024 02:23:09 PM Interpretation: Performing Lab:CB, [facility] [id number], [place] VillanuevaBtckSW[address] [place] Notes/Report: NON-FASTING; NON-FASTING; NON-FASTING; NON-FASTING; NON-FAST FASTING:YES FASTING: YES TSH W/REFLEX TO FT4 1.67 0.40-4.50 mIU/L CT Scan : Chest, Lung Cancer Screening Reviewed date:05/13/2024 10:35:25 AM Interpretation: Performing Lab: Notes/Report: Medications Medication SIG (Take, Route, Frequency, Duration) [...] once a day for 90 days Active Immunizations Vaccine Route Administration Date Status Comme nts Adacel (Tdap) Unknown 12/06/2018 Administered Arexvy IM Intramuscular 02/11/2023 Administered Flublok IM Intramuscular 01/26/2022 Administered FLUZONE 6MO - OLDER IM Intramuscular 02/11/2023 Administer ed FLUZONE 6MO - OLDER IM Intramuscular 04/13/2024 Administer ed Influenza-Fluzone 3+years (NON-MEDICARE) IM Intramuscular 01/06/2018 Administered Pneumovax 23 IM Intramuscular 11/22/2019 Administered Prevnar PCV-20 (Pneumococcal conjugate 20) IM Intramuscular 03/07/2023 Administered SHINGRIX IM Intramuscular 03/07/2023 Administered SHINGRIX IM Intramuscular 04/13/2024 Administered Social History Tobacco Use: Social History Observation Description Date Details (start date - stop date) Current Smoker NA - NA Smoking: Question Answer Notes Are you a: current smoker How often do you smoke cigarettes? every day How many cigarettes a day do you smoke? 5 or les s How soon after you wake up do you smoke your fir st cigarette? after 60 min Problems Problem Type SNOMED Code ICD Code Onset Dates Problem Status W/U Status Risk Notes Problem 646677489 Mixed hyperlipidemia (E78.2) Active confirmed Problem 67754764 Generalized anxi ety disorder (F41.1) Active confirmed Problem 66948876 Other chronic pa in (G89.29) Active confirmed Problem 393348747 Other seasonal allergic rhinitis (J30.2) Active confirmed Problem 260127242 Other allergic rhinitis (J30.89) Active confirmed Problem 94088452 Centrilobular emphysema (J43.2) Active confirmed Problem 213909582 Lumbago with sciatica, right side (M54.41) Active confirmed Problem Lumbago with sciatica, left side (M54.42) Active confirmed Problem 197710777 Personal history of nicotine dependence (Z87.891) Active confirmed Problem 97029146 Vitamin D deficiency (E55.9) Active confirmed Problem 352416865 Tobacco use disorder (Z72.0) Active confirmed Problem 421441782 Insomnia (G47.00) Active confirmed Problem 069212257 Hyperlipemia, idiopathic familial (E78.5) Active confirmed Problem 192518469 Lung nodules (R91.8) Active confirmed Problem 064295885 Primary osteoarthritis of both knees (M17.0) Active confirmed Problem 615293862 Abnormal mammogr am (R92.8) Active confirmed Problem 66819375 Right sciatic ne rve pain (M54.31) Active confirmed Problem 23150816 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.2) Active confirmed Problem 68868882 COPD without exacerbation (J44.9) Active confirmed Problem 545679163 Hot flash, menopausal (N95.1) Active confirmed Problem 669312129 Hot flashes (R23.2) Active confirmed Problem 566814722 Vasomotor sympto ms due to menopause (N95.1) Active confirmed Problem 05852086 Other polyneuropathy (G62.89) Active confirmed Vital Signs Heart Rate 78 /min 08/13/2024 Temperature 98 degrees Fahrenheit 08/13/2024 Blood pressure diastolic 82 mm Hg 08/13/2024 Height 5 ft 5 in in 08/13/2024 Blood pressure systolic 142 mm Hg 08/13/2024 Weight 148 lbs 08/13/2024 BMI 24.63 kg/m2 08/13/2024 Encounters Encounter Location Date Provider Diagnosis [facility] [address] [place] [address] 06/26/2024 Provider Migration Hot flashes R23.2 ; Muscle strain T14.8XXA ; Other specified disorders of bone density and structure, right thigh M85.851 and Mixed hyperlipidemia E78.2 [facility] [address] [place] [address] 09/02/2024 Lidia Gabriel [facility] [address] [address] 04/13/2024 Lidia Gabriel Muscle strain T14.8X XA ; Hot flashes R23.2 ; Personal history of nicotine dependence Z87.891 ; Generalized anxiety disorder F41.1 ; Other specified disorders of bone density and structure, right thigh M85.851 ; Other specified disorders of bone density and structure, left thigh M85.852 ; Mixed hyperlipidemia E78.2 ; Family history of diabetes mellitus Z83.3 ; Routine adult health maintenance Z00.00 ; Encounter for screening for lung cancer Z12.2 and Encounter for immunization Z23 [facility] [address] [address] 08/13/2024 Lidia Gabriel Lumbago with sciatic a, right side M54.41 ; Lumbago with sciatica, left side M54.42 ; Other polyneuropathy G62.89 ; B12 deficiency E53.8 and Vitamin D deficiency E55.9 [facility] [address] [place] [address] 04/14/2024 Lidia Rebollarowell Asymptomatic postmenopausal state Z78.0 [facility] [address] [place] [address] 04/19/2024 Lidia Gabriel History of nicotine dependence Z87.891 [facility] [address] [place] [address] 05/13/2024 Santiago Mckeon Pulmonary cavitary lesion J98.4 [facility] [address] [place] [address] 08/17/2024 Lidia Gabriel Lumbago with sciatic a, right side M54.41 Assessments Encounter Date Diagnosis (ICD Code) Assessment Notes Treatment Notes Treatment Clinical Notes Section Notes 04/13/2024 Hot flashes (ICD-10 - R23.2) Will check TSH, normal previously. Attribute hot flashes to hysterectomy years ago and well controlled on Venlafaxine so will continue. Follow-up in 3 months. I personally will review all labs once final. 04/13/2024 Muscle strain (ICD-10 - T14.8XXA) Discussed the etiology and expected course of back pain related to muscle spasm/strain. Discussed the role of pain medications/anti- inflammatories including Ibuprofen and Tylenol, heat pad, and stretches. PRN muscle relaxer ordered. Counseled patient to not drive when taking this medication. Also, discussed signs and symptoms of worsening condition that may warrant reassessment in clinic or ED. Patient to call office if no improvement in a week for PT to be ordered at that time. Patient and family voice understanding and agree with the plan of care above. 04/14/2024 Asymptomatic postmenopausal state (ICD-10 - Z78.0) 04/19/2024 History of nicotine dependence (ICD-10 - Z87.891) 05/13/2024 Pulmonary cavitary lesion (ICD-10 - J98.4) 06/26/2024 Hot flashes (ICD-10 - R23.2) 06/26/2024 Muscle strain (ICD-10 - T14.8XXA) 08/13/2024 Lumbago with sciatica, right side (ICD-10 [...] left side (ICD-10 - M54.42) As above. 08/17/2024 Lumbago with sciatica, right side (ICD-10 - M54.41) 08/13/2024 Other polyneuropathy (ICD-10 - G62.89) I personally will review all labs once final. 04/13/2024 Personal history of nicotine dependence (ICD-10 - Z87.891) Cessation discussed, precontemplative. 04/13/2024 Generalized anxiety disorder (ICD-10 - F41.1) I personally will review all labs once final. Well controlled on Venlafaxine so will continue. 08/13/2024 B12 deficiency (ICD-10 - E53.8) I personally will review all labs once final. 06/26/2024 Other specified disorders of bone density and structure, right thigh (ICD-10 - M85.851) 08/13/2024 Vitamin D deficiency (ICD-10 - E55.9) I personally will review all labs once final. 04/13/2024 Other specified disorders of bone density and structure, right thigh (ICD-10 - M85.851) Continue alendronate and discussed taking with a tall glass of water. 04/13/2024 Other specified disorders of bone density and structure, left thigh (ICD-10 - M85.852) Continue alendronate and discussed taking with a tall glass of water. 04/13/2024 Mixed hyperlipidemia (ICD-10 - E78.2) Continue statin. I personally will review all labs once final. 06/26/2024 Mixed hyperlipidemia (ICD-10 - E78.2) 04/13/2024 Family history of diabetes mellitus (ICD-10 - Z83.3) I personally will review all labs once final. 04/13/2024 Routine adult health maintenance (ICD-10 - Z00.00) Getting flu and Shingrix vaccines today. Now finished Shinglex vaccine series. Tdap in 2019. Prevnar and Arexvy in 2022. Hysterectomy years ago, no paps needed. Patient reports she is due for a mammogram and will call to get this scheduled herself. She reports her last colonoscopy was within a few years and normal without polyps so not due for a repeat for several years. She denies any changes in bowel habits, brbpr, or family history of colon cancer. She sees and eye MD annually, wears glasses. Denies substance abuse other than smoking cigarettes. She is not ready to stop smoking, precontemplation. Denies SI/HI. Due for second Shingrix, agreeable to getting today. Flu shot today. Due for lung cancer screening CT. Due for repeat DEXA. I personally will review all imaging and lab results once final and sent to me. 04/13/2024 Encounter for screening for lung cancer (ICD-10 - Z12.2) CT for lung cancer screening ordered. I personally will review the results once final. 04/13/2024 Encounter for immunization (ICD-10 - Z23) Plan Of Treatment Pending Test Test Name Order Date X ray : Spines, Lumbosacral 08/13/2024 Mammogram : Left breast 05/04/2019 Physical Therapy 06/09/2017 Physical Therapy 04/28/2018 Physical Therapy 02/09/2013 CT Scan : Chest, With & Without Contrast 09/28/2018 M-Complete Blood Count Auto Diff 022 M-Comprehensive Metabolic Panel 06/28/19 22 M-Lipid Panel 06/27/2021 M-Vitamin B12 01/26/2022 M-Vitamin D 25 Hydroxy 06/27/2021 M-Vitamin D 25 Hydroxy 01/26/2022 Physical Therapy Eval and Treat 08/18/19 25 COMPREHENSIVE METABOLIC PANEL (19860) CBC (INCLUDES DIFF/PLT) (6399) VITAMIN B12 (927) 08/13/2024 TSH W/REFLEX TO FT4 (99903) 08/13/2024 VITAMIN D,25-OH,TOTAL,IA (33657) 025 Future Test Test Name Order Date C-VITAMIN B12 03/10/2013 C-VITAMIN D, 25-HYDROXY 03/10/2013 Insurance Providers Payer Name Payer Address Payer Phone Subscriber Number Group Number Insured Name Patient Relationship to Insured Coverage Start Date Coverage End Date [facility] [address] [place] [address] [id number] Jennifer Novoa Self - patient is the insured Medications Administered Medication Instructions Date of Administration Dosage Notes Dexamethasone 4mg Injection 08/13/2024 4 mg Kenalog 40mg 03/18/2017 40 mg Triamcinolone Acetonide 40mg Injection 08/31/2018 1 mL Kenalog 07/21/2013 1 Medical (General) History Medical History History ICD Code Tobacco Use normal colonoscopy September 2015 - repeated 02/11 with polyps - 5 year f/u recommended Last mammogram 05/13 - 9 khadijah h f/u with ernesto recommended -mammogram done 02/11 normal, 1 year follow-up L4-5 DDD with disc bulge Osteopenia on dexa 01/09. Alendronate st arted- normal dexa 07/13 Low-dose CT scan February 10 with 3-month follow-up recommended - improved nodules on scan 07/13 - 6 month f/u recommended Surgical History Surgery Date(Month/Year) hysterectomy tonsillectomy Heart cath 05/2021
--- OUTSIDE RECORDS SUMMARY | 2024-09-02 15:23 | XMS_ITS | Data Portability ---
Author Organization [facility] Address [address] [place] [address] Care Team Providers Care Restaurant Mgr Name Role Phone OLAYINKA WASHINGTON Primary Care Provider [phone] Assessment Encounter Date Assessment Date Assessment LastModified by Organization Details LastModified Time 02/14/2020 02/14/2020 Mrs. Novoa is a 59-year-old female with a disc herniation on the right at L4-5. This has progressed substantially since her previous MRI. The MRI reviewed today was performed September 13, 2019. The previous MRI was performed February 12, 2013. There is compression on the descending L5 nerve root on the right. There is lateral recess stenosis on the left. There is also a right foraminal component there would need to be addressed during time of surgery. We discussed a right-sided L4-5 hemilaminectomy, mesial facetectomy and foraminotomy with resection of the disc herniation. We could also look across on the other side with a minimally invasive laminectomy in hopes of decompressing the left L5 nerve root. This would be performed on an outpatient basis unless she needs to stay for pain control, reaction anesthesia or spinal fluid leakage. She understands that this is the most reasonable thing to try, but ultimately she may need a fusion at the L4-L5 level if she re-herniates, develops severe foraminal stenosis or worsening left-sided symptoms. Not available 02/14/2020 09:39:58 05/15/2020 05/15/2020 Mrs. Novoa is a 59-year-old female status post minimally invasive right L4-5 discectomy. I reassured her that the numbness and tingling should continue to resolve with time. I will prescribe her a Medrol Dosepak in order to help progress things. She stated that she will let us know how things are going in a week or so. Her follow-up can be as needed. She understands that if she wants to pursue some physical therapy to give us a call, otherwise encouraged her to walk as much as possible. Not available 05/15/2020 09:09:55 Plan of Treatment Reminders Order Date Submit Date Provider Last Modified By Organization Details Last Modified Time Details Appointments None record ed. Lab None record ed. Referral None record ed. Procedures None record ed. Surgeries None record ed. Imaging None record ed. Medication Orders None record ed. Patient TargetsNo targets recorded. Patient InstructionsNo instructions recorded. Reason for Referral None Reported. Results Created Date Observation Date Name Description Value Unit Range Abnormal Flag Note LastModifiedBy Organization Detail LastModifiedTime 02/14/20 20 09/13/2019 MRI, lumba r spine , w/o contr ast No observ ation record ed. BARCODE Not Available 2019 15:12:33 03/21/20 20 03/21/2020 fluor oscop y (PROC ) No observ ation record ed. [facility] [address] , [place], [address], 03/22/2020 13:15:34 08/09/19 21 08/07/2020 MRI, lumba r spine , w/wo contr ast No observ ation record ed. [email or web address] [place] [address] [address], [place], [address], 08/08/2020 14:25:11 08/10/19 21 08/09/2020 XR, lumbo sacra l spine , 2 or 3 view, bendi ng only No observ ation record ed. [facility] [address], [place], [id number], 08/14/2020 18:27:05 Result Notes None recorded. Procedures Surgical History Date Name Laterality Status Provider Name and Address Organization Details Recorded Time 03/21/20 20 LAMINOTOMY (HEMILAMINECTOMY) , DECOMPRESSION OF NERVE ROOTS, PARTIAL FACECTOTOMY, FORAMINOTOMY AND/OR DISC REMOVAL, LUMBAR (SURG) completed Alicia Moreira [facility] 03/23/2020 13:55:30 tonsillectomy completed Rach Todd [facility] 02/14/2020 09:05:02 hysterectomy completed [facility] 02/14/2020 09:05:13 Imaging Results None recorded. Procedure Notes None recorded. Medical Equipment None Reported. Allergies Allergen ID Allergen Name Allergen Category Reaction Reaction Severity Criticality Documentation Date Start Date Code Code System Note Provider Name and Address Organization Details Recorded Time 670212 Mobic medicatio n Not available Not available Not available 02/16/20162013 55986 9 RxNorm Comme nt: Creat ed By: Palmira lopez;Patrick eated Date: 2013 9:47: 11 AM; Not Available [facility] 6 05:33:08 881316 diclofena c sodium medicatio n Not available Not available Not available 02/16/20162013 64071 4 RxNorm Comme nt: Creat ed By: Franc Leon carmen;C reate d Date: 2013 4:23: 53 PM; Not Available [facility] 6 08:49:48 Medications Name Sig Start Date Stop Date Status Note LastModified by Organization Details LastModified Time atorvastat in 40 mg tablet TAKE ONE TABLET BY MOUTH EVERY DAY active Not Available Not Available No t Available venlafaxin e ER 75 mg capsule,ex tended release 24 hr TAKE ONE CAPSULE BY MOUTH EVERY DAY active Not Available Not Available No t Available azithromyc in 250 mg tablet TAKE 2 TABLETS BY MOUTH ON DAY 1, THEN TAKE 1 TABLET DAILY ON DAYS 2-5 02/13 completed Not Available Not Available Not Available ibuprofen 800 mg tablet Two times a day active Duratio n: 30 days;Fr equency : bid;Med ication Descrip tion: ibuprof en; Dosage: 1; Route:o ral; refills :0; Quantit y:0 tablet Not Available Not Available Not Available benzonatat e 200 mg capsule active Not Available Not Available Not Available Medrol (Tesfaye) 4 mg tablets in a dose pack Take 1 tablet by oral route as directed . 2020 active Not Available Not Available Not Avai lable prednisone 20 mg tablet active Not Available Not Available Not Available ciclopirox 8 % topical solution active Not Available Not Available Not Available hydrocodon e 7.5 mg-acetami nophen 325 mg tablet TAKE ONE TABLET BY MOUTH EVERY 6 HOURS NEEDED MAY CAUSE DROWSINE SS active Not Available Not Available No t Available tobramycin 1.2 gram solution for injection active Not Available Not Available No t Available gabapentin 300 mg capsule TAKE ONE CAPSULE BY MOUTH THREE TIMES DAILY MAY CAUSE DROWSINE SS active Not Available Not Available No t Available vancomycin 10 gram intravenou s solution active Not Available Not Available N ot Available levofloxac in 500 mg tablet TAKE ONE TABLET BY MOUTH EVERY DAY FOR 7 DAYS -- FINISH ALL MEDICINE -- 02/13 completed Not Available Not Available Not Available albuterol sulfate HFA 90 mcg/actuat ion aerosol inhaler active Not Available Not Available Not Available cefdinir 300 mg capsule active Not Available Not Available Not Available ceftriaxon e 2 gram solution for injection active Not Available Not Available No t Available levocetiri zine 5 mg tablet active Not Available Not Available Not Available Breo Ellipta 100 mcg-25 mcg/dose powder for inhalation INHALE 1 PUFF BY MOUTH EVERY DAY --RINSE MOUTH AFTER USE-- active Not Available Not Available No t Available Anoro Ellipta 62.5 mcg-25 mcg/actuat ion powder for inhalation active Not Available Not Available N ot Available Trelegy Ellipta 100 mcg-62.5 mcg-25 mcg powder for inhalation active Not Available Not Available N ot Available Vitals Date Recorded Body height Body mass index (BMI) Body weight Systolic blood pressure Diastolic blood pressure Provider Name and Address Organization Details Last Updated DateTime 05/15/2020 165.1 cm 25.6 kg/m2 70601.22 g 120 mm[Hg] 80 mm[Hg] [facility] 1 09:00:09 Date Recorded Body height Body mass index (BMI) Body weight Systolic blood pressure Diastolic blood pressure Provider Name and Address Organization Details Last Updated DateTime 02/14/2020 165.1 cm 25.6 kg/m2 09331.22 g 120 mm[Hg] 80 mm[Hg] [facility] 0 09:05:59 Social History None recorded. Functional Status None recorded. Mental Status None recorded. Family History Relationship Description Onset Age of this Age Resolved Age Notes LastModified by Organization Details LastModified Time Unspecified Relation Malignant neoplastic disease [email or web address] Not available 02/13 09:04:35 Unspecified Relation Cerebrovascu lar accident [email or web address] Not available 09:04:50 Medical History Condition Response High Cholesterol Y Gynecological HistoryNo gynecological history recorded. Obstetrics History GPAL:G 0 P 0 0 0 0 Past Encounters Encounter ID Performer Location Encounter Start Date Encounter Closed Date Diagnosis/Indication Diagnosis SNOMED-CT Code Diagnosis ICD10 Code Diagnosis Note [id number] JAMISON WHITE MD [facility] [address] [place] [id number] 02/14/2020 08:41:56 02/15/2020 14:04:13 Lumbar radiculopathy 373812429 M54.16 Time spent reviewing images, discussing the diagnosis and coordinati ng care: 30min [id number] JAMISON WHITE MD SURGERY SCHEDULE [address] [place] [address] 03/23/2020 14:09:34 03/23/2020 15:01:07 [id number] JAMISON WHITE [facility] [address] [place] [address] 05/15/2020 08:48:27 05/15/2020 15:40:46 Postoperative care 998870659 Z48.89 Health Concerns Section Related Observation LastModified by Organization Detai ls LastModified Time None Recorded Concern Status LastModified by Organization Details LastModified Time None Recorded Advance Directives Directive None Recorded Payers Insurance Date Sequence Insurance Name Policy Number Policy Stokes Covered Member ID Stokes Member ID Guarantor Name 06/27/2022 1 [id number] Jennifer Novoa [id number] Jennifer Novoa Notes Date Note Type Note Provider Name and Address Organization Details Recorded Time 02/14/2020 text/html 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 Her pain is in an L5 distribution. She is saw me back in 2014 after the pain started after lifting a patient. Her pain is 5 out of 10 with multiple characteristics. The pain is constant and getting worse. She gets some relief from sitting. The pain is made worse with walking, standing and stairs. She describes bilateral leg numbness and tingling, especially at night. She feels generalized weakness in her legs. No loss of bowel or bladder control. She trialed physical therapy, traction and a TENS unit. She has been taking anti-inflammatorie s for the past 5 years as needed. She underwent 5 lumbar injections which worked well for 2 weeks. She did these with Dr. Cristobal. JAMISON WHITE MD [address] [place] [address], [id number], [facility] 02/14/2020 09:40:02 05/15/2020 text/html Jennifer Novoa is a 59-year-old female status post right L4-5 discectomy performed on March 21, 2020. She reports good relief of the radicular pain, but continues to have some numbness and tingling, especially in the morning. She went back to work 2 weeks after the surgery. JAMISON WHITE MD [facility] [place], [address], [facility] 05/15/2020 09:23:52 OBGyn Episode No OBEpisode recorded.
== END 2024-09-02 23:59 | disposition home or self-care (01) ==
LOC: RAD 15:14
PROVIDERS: PCP Internal Medicine Adolescent Medicine; Visit Provider Physician Assistant
DX: M47.817 Spondylosis without myelopathy or radiculopathy, lumbosacral region (principal); M51.369 Other intervertebral disc degeneration, lumbar region without mention of lumbar back pain or lower extremity pain; M41.86 Other forms of scoliosis, lumbar region
CPT/HCPCS: 72110

== ENCOUNTER 2024-09-08 11:03 | Outpatient (POV) | payer BC, SELFPAY ==
--- OUTSIDE RECORDS SUMMARY | 2024-08-13 07:30 | XMS_ITS ---
Author Organization [facility] Address [address] [place] [address] Care Team Providers Care Geotechnical Engineer Name Role Phone Santiago Mckeon Primary Care Provider Lidia Gabriel Unavailable [phone] Allergies Allergen (clinical drug ingredient) Drug/Non Drug Allergy documented on EMR Reaction Allergy Type Onset Date Status meloxicam Meloxicam angioedema Drug Allergy Active diclofenac Diclofenac hives Drug Allergy Activ e Results Component Value Reference Range Notes COMPREHENSIVE METABOLIC PANE L (97502) (Not yet reviewed by provider) Interpretation: Performing Lab:[place], [facility] [address], [facility] HospitalXaumOV[address] [place] Notes/Report: NON-FASTING; NON-FASTING; NON-FASTING; NON-FASTING; NON-FAST GLUCOSE 116 65-99 mg/dL Fasting reference interval For someone without known diabetes, a glucose value between 100 and 125 mg/dL is consistent with prediabetes and should be confirmed with a follow-up test. UREA NITROGEN (BUN) 15 7-25 mg/dL CREATININE 0.74 0.50-1.05 mg/dL EGFR 92 > OR = 60 mL/min/1.73m2 BUN/CREATININE RATIO SEE NOTE: 6-22 (calc) Not Reported: BUN and Creatinine are within reference range. SODIUM 142 135-146 mmol/L POTASSIUM 3.6 3.5-5.3 mmol/L CHLORIDE 103 98-110 mmol/L CARBON DIOXIDE 29 20-32 mmol/L CALCIUM 9.3 8.6-10.4 mg/dL PROTEIN, TOTAL 6.9 6.1-8.1 g/dL ALBUMIN 4.6 3.6-5.1 g/dL GLOBULIN 2.3 1.9-3.7 g/dL (calc) ALBUMIN/GLOBULIN RATIO 2.0 1.0-2.5 (calc) BILIRUBIN, TOTAL 0.6 0.2-1.2 mg/dL ALKALINE PHOSPHATASE 83 37-153 U/L AST 27 10-35 U/L ALT 24 6-29 U/L CBC (INCLUDES DIFF/PLT) (639 9) (Not yet reviewed by provider) Interpretation: Performing Lab:FABIAN, [facility] [address], Emergency CallWorksYbnuXA[address] [place] Notes/Report: NON-FASTING; NON-FASTING; NON-FASTING; NON-FASTING; NON-FAST WHITE BLOOD CELL COUNT 14.4 3.8-10.8 Thousand/ uL RED BLOOD CELL COUNT 4.32 3.80-5.10 Million/uL HEMOGLOBIN 14.2 11.7-15.5 g/dL HEMATOCRIT 43.8 35.0-45.0 % MCV 101.4 80.0-100.0 fL MCH 32.9 27.0-33.0 pg MCHC 32.4 32.0-36.0 g/dL For adults, a slight decrease in the calculated MCHC value (in the range of 30 to 32 g/dL) is most likely not clinically significant; however, it should be interpreted with caution in correlation with other red cell parameters and the patient's clinical condition. RDW 12.8 11.0-15.0 % PLATELET COUNT 236 140-400 Thousand/uL MPV 11.0 7.5-12.5 fL ABSOLUTE NEUTROPHILS 9835 8584-6193 cells/uL ABSOLUTE LYMPHOCYTES 3211 850-3900 cells/uL ABSOLUTE MONOCYTES 1166 200-950 cells/uL ABSOLUTE EOSINOPHILS 144 15-500 cells/uL ABSOLUTE BASOPHILS 43 0-200 cells/uL NEUTROPHILS 68.3 LYMPHOCYTES 22.3 MONOCYTES 8.1 EOSINOPHILS 1.0 BASOPHILS 0.3 VITAMIN B12 (927) (Not yet r eviewed by provider) Interpretation: Performing Lab:CB, [facility] [address], [place]tu[place]eqfCJ[address] [place] Notes/Report: NON-FASTING; NON-FASTING; NON-FASTING; NON-FASTING; NON-FAST VITAMIN B12 687 590-6189 pg/mL TSH W/REFLEX TO FT4 (64194) (Not yet reviewed by provider) Interpretation: Performing Lab:FABIAN, [facility] [address], [place] DpbcIQ[address] [place] Notes/Report: NON-FASTING; NON-FASTING; NON-FASTING; NON-FASTING; NON-FAST TSH W/REFLEX TO FT4 0.98 0.40-4.50 mIU/L VITAMIN D,25-OH,TOTAL,IA (17 306) (Not yet reviewed by provider) Interpretation: Performing Lab:F[place]IAN, [facility] [address], [place]qfwUF[address] [place] Notes/Report: NON-FASTING; NON-FASTING; NON-FASTING; NON-FASTING; NON-FAST VITAMIN D,25-OH,TOTAL,IA 37 30-100 ng/mL Vitamin D Status 25-OH Vitamin D: Deficiency: <20 ng/mL Insufficiency: 20 - 29 ng/mL Optimal: > or = 30 ng/mL For 25-OH Vitamin D testing on patients on D2-supplementation and patients for whom quantitation of D2 and D3 fractions is required, the [facility]TM) 25-OH VIT D, (D2,D3), LC/MS/MS is recommended: order code 21662 (patients >2yrs). See Note 1 Note 1 For additional information, please refer to http://education.[employer]/faq/AUC586 (This link is being provided for informational/ educational purposes only.) X ray : Spines, Lumbosacral (Not yet reviewed by provider) Interpretation: Performing Lab: Notes/Report: X ray : Spines, Lumbosacral (Not yet reviewed by provider) Interpretation: Performing Lab: Notes/Report: Reason For Referral Reason Please refer to PT a t [facility] for sciatica and low back pain. Diagnosis 1 Lumbago with sciatic a, right side (M54.41) Referral Organization [facility] [place] Referring Provider First Name Lidia Referring Provider Last Name Harvey Referring Provider Speciality Family Pra ctice Referred Organization [facility] Referred Address [address] [place] [facility] [address] [facility] [place],[address], Referred Provider Specialty Physical The rapist Referral [...] Problem Status W/U Status Risk Notes Problem [id number] Other polyneuropathy (G62.89) Active confirmed Vital Signs Temperature 98 degrees Fahrenheit 08/13/2024 Heart Rate 78 /min 08/13/2024 Blood pressure systolic 142 mm Hg 08/14/19 25 Blood pressure diastolic 82 mm Hg 025 Height 5 ft 5 in in 08/13/2024 Weight 148 lbs 08/13/2024 BMI 24.63 kg/m2 08/13/2024 Encounters Encounter Location Date Provider Diagnosis [address] [address] 08/13/2024 Lidia Gabriel Lumbago with sciatic a, [...] : Spines, Lumbosacral 08/13/2024 COMPREHENSIVE METABOLIC PANEL (50861) CBC (INCLUDES DIFF/PLT) (6399) VITAMIN B12 (927) 08/13/2024 TSH W/REFLEX TO FT4 (21225) 08/13/2024 VITAMIN D,25-OH,TOTAL,IA (09674) 025 Referrals Referral Date Details 08/13/2024 08/13/2024, Please r efer to PT at [facility] for sciatica and low back pain., [address], [place], [address], Next Appt Details Follow Up: pending labs and improvement with PT, Reason: Medications Administered Medication Instructions Date of Administration Dosage Notes Dexamethasone 4mg Injection 08/13/2024 4 mg Progress Notes * Jennifer NOVOAOB:[birth year] (63 yo F)Acc No.[id number]:08/13/2024 Progress Notes Patient: Jennifer JACOBSON Provider: LAYLA Shelby :1960 A ge:63 Y S ex:Female Date:08/13/2024 Address:[address] [place] [address] [place], [place], [id number] Pcp:Santiago Mckeon Subjective: * Chief Complaints: * [...] and has had a laminectomy by Dr. Cabalelro in the past. She denies bowel/bladder incontinence, perianal parasethesia. She is able to walk, but having difficulty pushing her earth mover and going down her stairs consistently. * [...] Allergy, Diclofenac: hives. Objective: * Vitals: N urse: dw, Pain: 4, Temp: 98, RR: 18, [...] including Ibuprofen and Tylenol, heat pad, stretches, andto walk 30 mins a day. Steroid shot today and PRN muscle relaxer ordered. Counseled patient to not drive when taking this medication. Also, discussed signs and symptoms of worsening condition that may warrant reassessment in clinic or ED. PT ordered. Patient and family voice understanding and agreewith the plan of care above.? Referral To: ?Reason:Please refer to PT at [facility] for sciatica and low back pain. 2.?Lumbago with sciatica, left side?LAB: COMPREHENSIVE METABOLIC PANEL (04001) ?LAB: CBC (INCLUDES DIFF/PLT) (6399) ?LAB: VITAMIN B12 (927) ?LAB: TSH W/REFLEX TO FT4 (01386) ?LAB: VITAMIN D,25-OH,TOTAL,IA (25301) ?Imaging: X ray : Spines, Lumbosacral* Harvey Lidia Cheryl 08/13/2024 12:00:22 PM EDT > Please include both lumbar AND sacral spine. * Notes: As above.??3.?Other polyneuropathy?LAB: COMPREHENSIVE METABOLIC PANEL (57244) ?LAB: CBC (INCLUDES DIFF/PLT) (6399) ?LAB: VITAMIN B12 (927) ?LAB: TSH W/REFLEX TO FT4 (53591) ?LAB: VITAMIN D,25-OH,TOTAL,IA (08457) Notes: I personally will review all labs once final.??4.?B12 deficiency?LAB: COMPREHENSIVE METABOLIC PANEL (39850) ?LAB: CBC (INCLUDES DIFF/PLT) (6399) ?LAB: VITAMIN B12 (927) ?LAB: TSH W/REFLEX TO FT4 (91919) ?LAB: VITAMIN D,25-OH,TOTAL,IA (55515) Notes: I personally will review all labs once final.??5.?Vitamin D deficiency?LAB: COMPREHENSIVE METABOLIC PANEL (52118) ?LAB: CBC (INCLUDES DIFF/PLT) (6399) ?LAB: VITAMIN B12 (927) ?LAB: TSH W/REFLEX TO FT4 (10405) ?LAB: VITAMIN D,25-OH,TOTAL,IA (55103) Notes: I personally will review all labs once final.?? * Therapeutic Injections: Dexamethasone 4mg Injection : 4 mg (Route: Intramuscular) given by ESTEFANY Lr on right gluteus * Procedure Codes: J 1100 Dexamethasone Sodium Phosphate 4mg Injection, 22228 THERAPEUTIC ADMINISTRATION * Follow Up: p ending labs and improvement with PT * * Sign off status: Completed true * Provider: LAYLA Shelby Date: 0 08/13/2024 Generated for Justin garcia/Armin/Olgaitting on: 0 09/08/2024 11:10 AM EDT History and Physical Notes * HPI [...] to walk, but having difficulty pushing her earth mover and going down her stairs consistently. Examination [...] Gabriel , Please refer to PT at [facility] for sciatica and low back pain.
--- OUTSIDE RECORDS SUMMARY | 2024-08-17 08:18 | XMS_ITS ---
Author Organization [facility] Address [address] [place] [address] Care Team Providers Care Professor Of Literacy Name Role Phone Santiago Mckeon Primary Care Provider GabrielLidia rivera Nichole [phone] Encounters Encounter Location Date Provider Diagnosis [facility] [place] [address] [place] [address] 08/17/2024 Lidia Gabriel Lumbago with sciatica, right side M54.41 Assessments Encounter Date Diagnosis (ICD Code) Assessment Notes Treatment Notes Treatment Clinical Notes Section Notes 08/17/2024 Lumbago with sciatica, right side (ICD-10 - M54.41) Plan Of Treatment Pending Test Test Name Order Date Physical Therapy Eval and Treat 08/18/19 25 Progress Notes * Jennifer NOVOAOB:[birth year] (63 yo F)Acc No.[id number]:08/17/2024 Patient: Jennifer JACOBSON :1960 A ge:63 Y S ex:Female Address:[address] [place], [address] Subjective: * Chief Complaints: * * Medical History: * Surgical History: * Hospitalization/Major Diagno stic Procedure: * Medications: Objective: * Vitals: * Physical Examination: Assessment: * Assessment: 1. L umbago with sciatica, right side - M54.41 Plan: * Treatment: * Procedure Codes: * true * Date: Generated for Justin garcia/Armin/Huber on: 0 09/08/2024 11:10 AM EDT
--- OUTSIDE RECORDS SUMMARY | 2024-09-02 11:00 | XMS_ITS ---
Author Organization [facility] Address [address] [place] [address] Care Team Providers Care Shrimping Boat Captain Name Role Phone Santiago Mckeon Primary Care Provider [phone] Lidia Gabriel Unavailable [phone] REASON FOR VISIT Labs Encounters Encounter Location Date Provider Diagnosis [facility] [address] [place] [address] 09/02/2024 Lidia Gabriel Plan Of Treatment No Information Progress Notes * Jennifer NOVOAOB:[birth year] (63 yo F)Acc No.[id number]:09/02/2024 LABS Patient: Jennifer JACOBSON Provider: LAYLA Shelby :1960 A ge:63 Y S ex:Female Date:09/02/2024 Address:[address], [place] Pcp:Santiago Mckeon Subjective: * Chief Complaints: * 1 . Labs. * Medical History: Objective: * Vitals: Assessment: Plan: * Treatment: * * Electronic signature of Radha Gabriel PA-C on 09/08/2024 at 11:09 AM EDT Sign off status: Pending * Provider: LAYLA Shelby Date: 0 09/02/2024 Generated for Printi ng/Faxing/eTransmitting on: 0 09/08/2024 11:09 AM EDT
--- OUTSIDE RECORDS SUMMARY | 2024-09-08 11:10 | XMS_ITS | Referral Summary ---
Author Organization [facility] Address [address] [place] [address] Care Team Providers Care Public Safety Police Name Role Phone Unavailable Primary Care Provider Unavailabl e Social History Tobacco Use Types Packs/Day Years Used Date Smoking Tobacco: Never Assessed Comments Unknown Sex and Gender Information Value Date Recorded Sex Assigned at Female 09/18/2021 7:23 PM CDT Legal Sex Female 7:23 PM CDT Gender Identity Female 09/18/2021 7:23 PM CDT Sexual Orientation Not on file Plan of Treatment Not on file
--- OUTSIDE RECORDS SUMMARY | 2024-09-08 11:10 | XMS_ITS | Encounter Summary ---
Author Organization [employer] Address [address] [place] [address] Care Team Providers Care Advanced Practice Provider Name Role Phone Unavailable Primary Care Provider Unavailabl e Encounter Details Date Type Department Care Team (Late st Contact Info) Description 03/21/2020 Transcribed Document [facility] Family Medicine [address] [place] [address] ProviderMilad MD [address] [place] [address] Social History Tobacco Use Types Packs/Day Years Used Date Smoking Tobacco: Never Assessed Comments Unknown Sex and Gender Information Value Date Recorded Sex Assigned at Female 09/18/2021 7:23 PM CDT Legal Sex Female 7:23 PM CDT Gender Identity Female 09/18/2021 7:23 PM CDT Sexual Orientation Not on file documented as of this encounter Miscellaneous Notes * Cerner Conversion Note - Historical ProviderMD - 03/21/2020 8:52 AM 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 Name: JENNIFER BUSTILLOS /Sex: 1960 Female Med Rec #: [id number] Physician: JAMISON WHITE MD-SNU Financial #: [id number] Pt. Type: O Room/Bed: Admit/Disch: 03/21/20 06:21:00 - 03/21/20 11:00:00 Institution: [facility] IntraOp Case Attendance Entry 1 Entry 2 Entry 3 Case Attendee CINDYJAMISON Byrd, Charlie D, ODALIS PHAM, RN -SANTINO Role Performed Surgeon/Proceduralist, Dean Of Graduate Studies, First Dean Of Graduate Studies, Second First Time In 03/21/20 08:21:00 03/21/20 08:21:00 03/21/20 08:21:00 Time Out 03/21/20 09:43:00 03/21/20 09:43:00 03/21/20 09:43:00 Procedure Discectomy Minimally Discectomy Minimally Discectomy Minimally Invasive Invasive Invasive Other Attendee Superficial Wound Closed By: Last Modified By: Corey Castano, Corey Whitley, RN Corey Castano, RN 03/21/20 09:43:32 03/21/20 09:43:32 03/21/20 09:43:32 Entry 4 Entry 5 Entry 6 Case Attendee Argenis Reilly, Ronal DAVIDSON, GLORIA JOHNSON CRNA Role Performed Dean Of Graduate Studies, Third Physician assistant secretary CASTING AGENT/Nurse Food Service Ambassador Time In 03/21/20 08:21:00 03/21/20 08:21:00 03/21/20 08:21:00 Time Out 03/21/20 09:43:00 03/21/20 09:43:00 03/21/20 09:43:00 Procedure Discectomy Minimally Discectomy Minimally Discectomy Minimally Invasive Invasive Invasive Other Attendee Superficial Wound Closed By: Last Modified By: Corey Castano, Corey Whitley, Corey Whitley, RN 03/21/20 09:43:32 03/21/20 09:43:32 03/21/20 09:43:32 Entry 7 Entry 8 Entry 9 Case Attendee OTHER, ATTENDEE #1 FALGUNI OLIVER, TEENA GONZALEZ, [place] RUB TECH Role Performed Student Scrub, Second Scrub, First Time In 03/21/20 08:21:00 03/21/20 08:21:00 03/21/20 08:21:00 Time Out 03/21/20 09:43:00 03/21/20 09:43:00 03/21/20 09:43:00 Procedure Discectomy Minimally Discectomy Minimally Discectomy Minimally Invasive Invasive Invasive Other Attendee PAUL GOETZ CASTING AGENT STUDENT Superficial Wound Closed By: Last Modified By: Corey Castano, RN Corey Castano, RN Corey Castano, RN 03/21/20 09:43:32 03/21/20 09:43:32 03/21/20 09:43:32 Entry 10 Case Attendee KALA VELAZQUEZ MD-ANS Role Performed Anesthesiologist of Record Time In 03/21/20 08:21:00 Time Out 03/21/20 09:43:00 Procedure Discectomy Minimally Invasive Other Attendee Superficial Wound Closed By: Last Modified By: Corey Castano, RONAL 03/21/20 09:43:32 [facility] IntraOp Case Attendance Audit 03/21/20 09:43:32 Fitness Manager: [email or web address] Modifier: [email or web address] 1 <+> Time Out 1 <*> Procedure Discectomy Minimally Invasive 2 <+> Time Out 2 <*> Procedure Discectomy Minimally Invasive 3 <+> Time Out 3 <*> Procedure Discectomy Minimally Invasive 4 <+> Time Out 4 <*> Procedure Discectomy Minimally Invasive 5 <+> Time Out 5 <*> Procedure Discectomy Minimally Invasive 6 <+> Time Out 6 <*> Procedure Discectomy Minimally Invasive 7 <+> Time Out 7 <*> Procedure Discectomy Minimally Invasive 8 <+> Time Out 8 <*> Procedure Discectomy Minimally Invasive 9 <+> Time Out 9 <*> Procedure Discectomy Minimally Invasive 10 <+> Time In 10 <+> Time Out 10 <*> Procedure Discectomy Minimally Invasive 03/21/20 09:08:25 Fitness Manager: [email or web address] Modifier: [email or web address] <+> 10 Case Attendee <+> 10 Role Performed <+> 10 Procedure 03/21/20 08:59:29 Fitness Manager: [email or web address] Modifier: [email or web address] 1 <*> Case Attendee JAMISON WHITE MD-SNU 1 <*> Role Performed Surgeon/Proceduralist, First 1 <*> Time In 03/21/20 08:21:00 1 <*> Procedure Discectomy Minimally Invasive 2 <*> Case Attendee Corey Castano, RN 2 <*> Role Performed Dean Of Graduate Studies, First 2 <*> Time In 03/21/20 08:21:00 2 <*> Procedure Discectomy Minimally Invasive 3 <*> Case Attendee 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, RN 3 <*> Role Performed Dean Of Graduate Studies, Second 3 <*> Time In 03/21/20 08:21:00 3 <*> Procedure Discectomy Minimally Invasive 4 <*> Case Attendee Argenis Reilly, Rn 4 <*> Role Performed Dean Of Graduate Studies, Third 4 <*> Time In 03/21/20 08:21:00 4 <*> Procedure Discectomy Minimally Invasive 5 <*> Case Attendee HILARIO DAVIDSON 5 <*> Role Performed Physician assistant secretary 5 <*> Time In 03/21/20 08:21:00 5 <*> Procedure Discectomy Minimally Invasive 6 <*> Case Attendee GLORIA SANTIAGO CASTING AGENT 6 <*> Role Performed CASTING AGENT/Nurse Food Service Ambassador 6 <*> Time In 03/21/20 08:21:00 6 <*> Procedure Discectomy Minimally Invasive 7 <*> Case Attendee OTHER, ATTENDEE #1 7 <*> Role Performed Student 7 <*> Time In 03/21/20 08:21:00 7 <*> Procedure Discectomy Minimally Invasive 7 <*> Other Attendee PAUL GOETZ CASTING AGENT STUDENT 8 <*> Case Attendee FALGUNI OLIVER ST 8 <*> Role Performed Scrub, Second 8 <*> Time In 03/21/20 08:21:00 8 <*> Procedure Discectomy Minimally Invasive 9 <*> Case Attendee TEENA LOPEZ TN RUB TECH 9 <*> Role Performed Scrub, First 9 <*> Time In 03/21/20 08:21:00 9 <*> Procedure Discectomy Minimally Invasive Entry 10 was deleted. Higher numbered entries shifted one position to fill the gap. <-> 10 Case Attendee FALGUNI OLIVER ST <-> 10 Role Performed Scrub, Second <-> 10 Time In 03/21/20 08:21:00 <-> 10 Procedure Discectomy Minimally Invasive 03/21/20 08:59:14 Fitness Manager: [email or web address] Modifier: [email or web address] 1 <*> Procedure Discectomy Minimally Invasive 2 <*> Procedure Discectomy Minimally Invasive 3 <*> Procedure Discectomy Minimally Invasive 4 <*> Procedure Discectomy Minimally Invasive 5 <*> Procedure Discectomy Minimally Invasive 6 <*> Procedure Discectomy Minimally Invasive 7 <*> Procedure Discectomy Minimally Invasive 8 <*> Role Performed Scrub, First 8 <*> Procedure Discectomy Minimally Invasive 9 <+> Time In 9 <*> Procedure Discectomy Minimally Invasive 10 <+> Time In 10 <*> Procedure Discectomy Minimally Invasive 03/21/20 08:39:32 Fitness Manager: [email or web address] Modifier: [email or web address] <+> 9 Case Attendee <+> 9 Role Performed <+> 9 Procedure <+> 10 Case Attendee <+> 10 Role Performed <+> 10 Procedure 03/21/20 08:25:18 Fitness Manager: [email or web address] Modifier: [email or web address] 1 <*> Procedure Discectomy Minimally Invasive 2 <*> Procedure Discectomy Minimally Invasive 3 <*> Procedure Discectomy Minimally Invasive 4 <*> Procedure Discectomy Minimally Invasive 5 <*> Procedure Discectomy Minimally Invasive 6 <+> Time In 6 <*> Procedure Discectomy Minimally Invasive 7 <+> Time In 7 <*> Procedure Discectomy Minimally Invasive 8 <+> Time In 8 <*> Procedure Discectomy Minimally Invasive 03/21/20 08:24:52 Fitness Manager: [email or web address] Modifier: [email or web address] <+> 6 Case Attendee <+> 6 Role Performed <+> 6 Procedure <+> 7 Case Attendee <+> 7 Role Performed <+> 7 Procedure <+> 7 Other Attendee <+> 8 Case Attendee <+> 8 Role Performed <+> 8 Procedure 03/21/20 08:21:37 Fitness Manager: [email or web address] Modifier: [email or web address] 1 <+> Time In 1 <*> Procedure Discectomy Minimally Invasive 2 <+> Time In 2 <*> Procedure Discectomy Minimally Invasive 3 <+> Time In 3 <*> Procedure Discectomy Minimally Invasive 4 <+> Time In 4 <*> Procedure Discectomy Minimally Invasive 5 <+> Time In 5 <*> Procedure Discectomy Minimally Invasive 03/21/20 08:21:26 Fitness Manager: [email or web address] Modifier: [email or web address] 1 <*> Case Attendee CINDY, CLAUDINE MEIER 1 <*> Role Performed Surgeon/Proceduralist, First 1 <+> Procedure <+> 2 Case Attendee <+> 2 Role Performed <+> 2 Procedure <+> 3 Case Attendee <+> 3 Role Performed <+> 3 Procedure <+> 4 Case Attendee <+> 4 Role Performed <+> 4 Procedure <+> 5 Case Attendee <+> 5 Role Performed <+> 5 Procedure [facility] IntraOp Case Times Entry 1 Patient In Room Time 03/21/20 08:21:00 Out Room Time 03/21/20 09:43:00 Anesthesia Start Time 03/21/20 08:21:00 Stop Time 03/21/20 09:43:00 Surgery / Procedure Times Start Time 03/21/20 08:52:00 Stop Time 03/21/20 09:33:00 Last Modified By: Corey Castano RN 03/21/20 09:43:29 [facility] IntraOp Case Times Audit 03/21/20 09:43:29 Fitness Manager: [email or web address] Modifier: [email or web address] <+> 1 Out Room Time <+> 1 Stop Time 03/21/20 09:33:52 Fitness Manager: [email or web address] Modifier: [email or web address] <+> 1 Stop Time 03/21/20 08:52:01 Fitness Manager: [email or web address] Modifier: [email or web address] <+> 1 Start Time [facility] IntraOp Cautery Entry 1 Entry 2 ESU Identification Cautery Type Monopolar ESU BiPolar ESU Cautery Type Comments ID Number [id number] ID Type Hospital Number Hospital Number Cautery Settings Cut Setting 40 8 Coag Setting 40 40 Blend Setting Bipolar Setting Argon Setting Argon Palm ESU Grounding Pad Ground Pad Type Adult Grounding Pad Type Comment Grounding Pad Site Right thigh Grounding Pad Site Comment Grounding Pad Corey Castano RN Applied By Grounding Pad Site Warm, dry and intact Skin Condition Before Cautery Site Skin Condition Before Comment Grounding Pad Site Unchanged Skin Condition After Cautery Site Skin Condition After Comment Last Modified By: Corey Castano RN Byrd, Charlie D, RN 03/21/20 09:00:29 03/21/20 09:00:29 [facility] IntraOp Communication Entry 1 Communication To Family/Significant other Comment START Communication By Corey Castano RN Date and Time 03/21/20 08:53:00 Last Modified By: Corey Castano RN 03/21/20 08:53:44 [facility] IntraOp Counts Verification Entry 1 Procedure Discectomy Minimally Invasive Count Info Count Type Sponge, Sharps, Miscellaneous Counts Verification Baseline/pre-procedure Sequence Count Results Not Applicable Counts Performed By Count Performed By FALGUNI OLIVER ST (Scrub) Count Performed By 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 RN (RN) Last Modified By: Corey Castano RN 03/21/20 08:59:41 [facility] IntraOp Counts Verification Audit 03/21/20 08:59:41 Fitness Manager: [email or web address] Modifier: [email or web address] 1 <*> Procedure Discectomy Minimally Invasive 1 <*> Count Performed By (Scrub) TEENA LOPEZ SC RUB TECH 03/21/20 08:59:21 Fitness Manager: [email or web address] Modifier: [email or web address] 1 <*> Procedure Discectomy Minimally Invasive 1 <*> Count Performed By (Scrub) FALGUNI OLIVER ST [facility] IntraOp Counts Final Entry 1 Procedure Discectomy Minimally Invasive Final Count Info Count Type Sponge, Sharps, Miscellaneous Counts Verification Skin Closure/end of Sequence procedure Count Results Correct, surgeon notified Counts Performed By Count Performed By TEENA LOPEZ SC RUB (Scrub) TECH Count Performed By Argenis Reilly Rn (RN) Last Modified By: Corey Castano RN 03/21/20 09:29:04 [facility] IntraOp Delays Entry 1 Delay Reason Surgeon late - did not call Duration 21 Minute(s) Last Modified By: Corey Castano RN 03/21/20 08:25:02 [facility] IntraOp Departure from OR Entry 1 Integumentary Assessment Integumentary WDL Assessment WDL Transfer/Handoff Transfer to PACU Phase I Handoff Method Bedside/Face to face, Phone call Post-op Transport Allie/Bridgette Via Patient Transport GLORIA SANTIAGO, Accompanied by RISHI, OTHER, ATTENDEE #1 Last Modified By: Corey Castano RN 03/21/20 09:02:54 [facility] IntraOp Dressing and Packing Entry 1 Type Dressing Location OP SITE Wound Dressing Item Occlusive dressing, Steristrip, Other Applied By LETY, HILARIO Other Comments MASTISOL, STERISTRIPS, COVADERM Last Modified By: Corey Castano RN 03/21/20 09:10:38 [facility] IntraOp Fire Risk Assessment Entry 1 Fire Info Surgical Site or 0- No Incision Above the Xyphoid Open O2 Source 1- Yes (Mask or Cannula) Available Ignition 1- Yes (ESU, Laser, Light Source) Fire Risk 1 Assessment Score Fire Score Fire Risk Yes Assessment Complete Fire Risk 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, 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 combustion 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 Verified By Fire Risk 03/21/20 08:20:00 Assessment Verified Date/Time Fire Risk Standard Fire Yes Safety Precautions Followed Last Modified By: Corey Castano RN 03/21/20 09:02:38 [facility] IntraOp General Case Parts Coordinator 1 Case Information OR OR 11 [facility] Case Level 1 Room Verified Yes Wound Class I - Clean Specialty SN Neurosurgery Anesthesia Type General ASA Class 2 Diagnosis Preop Diagnosis LUMBAR RADICULOPATHY Postop Same As Preop No Postop Diagnosis SEE MD POST OP NOTE Last Modified By: Corey Castano RN 03/21/20 09:02:23 [facility] IntraOp General Case Data Audit 03/21/20 09:02:23 Fitness Manager: [email or web address] Modifier: [email or web address] <+> 1 Preop Diagnosis [facility] IntraOp Intraoperative Assessment Entry 1 Handoff Method Online nursing summary Valid History / Yes Physical in Chart Preoperative Yes Checklist Reviewed/Evaluated Allergies Reviewed Yes Patient is Latex No Sensitive Isolation Not applicable Precautions Noted Level of WDL Consciousness (WDL = Alert, Oriented to Person, Place, and Time) Skin Assessment Yes Verified Present Upon IVs Arrival to OR Last Modified By: Corey Castano RN 03/21/20 09:03:04 [facility] IntraOp Intraoperative Equipment Entry 1 Type Equipment Equipment Equipment Yvonne Suction System ID Number [id number] Setting 200 MM HG Intraop Monitoring Electrocardiogram Five lead placement (ECG) Electrode Placement Blood Pressure Non-Invasive BP Device Source Blood Pressure Arm, right upper Location Pulse Oximeter Hand, left Probe Site Antiembolic Devices Antiembolic Devices Sequential compression device, knee high Antiembolic Device Bilateral Location Antiembolic Device [id number] ID Number Scopes Photo/Video Documentation Last Modified By: Corey Castano RN 03/21/20 09:03:35 [facility] IntraOp Medication Admin Entry 1 Entry 2 Entry 3 Medication/Irrigant Bacitracin powder lidocaine 1% w/ Neosporin 15Gm ointment 50,000 units-[id number] epinephrine 1:100,000 - [id number] 30ml vial - [id number] Combo Med List Time Administered Route of ADDED TO NS IRRIGATION LOCAL TOPICAL Administration Dose Dose 90909 20 1 Unit of Measure units ml pkt Volume Administered By JAMISON WHITE TUTT, MATTHEW PAIGE, TUTT, MATTHEW PAIGE, MD-SNU MD-SNU MD-SNU Procedure Irrigation Irrigant Volume In Irrigant Volume Out Last Modified By: Corey Castano, Corey Whitley RN Byrd, Charlie D, RN 03/21/20 09:05:18 03/21/20 09:05:18 03/21/20 09:05:18 Entry 4 Entry 5 Medication/Irrigant SPNG SURGFOAM thrombin 5000units [id number] topical powder - [id number] Combo Med List Time Administered Route of TOPICAL TOPICAL Administration Dose Dose 1 5000 Unit of Measure pkt units Volume Administered By JAMISON WHITE TUTT, MATTHEW PAIGE, MD-SNU MD-SNU Procedure Irrigation Irrigant Volume In Irrigant Volume Out Last Modified By: Corey Castano RN Byrd, Charlie D, RN 03/21/20 09:05:18 03/21/20 09:05:18 General Comments: CINDY LOCAL COMBO KENALOG 40MG, TORADOL 15MG, MARCAINE 0.25% PLAIN 30ML [facility] IntraOp Patient Positioning Entry 1 Procedure Discectomy Minimally Invasive Body Position Prone Left Arm Position Secured on padded arm board Right Arm Position Secured on padded arm board Left Leg Position Elevated Right Leg Position Elevated Feet Uncrossed Yes Pressure Points Yes Checked Positioning Devices Arm Board, Head Rest, Pad, Arm, Pillows, Safety Strap, Thighs, Ruddy Frame Positioned By JAMISON WHITE MD-SNU, Corey Castano RN, 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 RN, HILARIO DAVIDSON CALDWELL, JOSEPH A, RISHI, OTHER, ATTENDEE #1 Position Verified Positioning Yes Verified by Anesthesia Positioning Yes Verified by Surgeon Last Modified By: Corey Castano RN 03/21/20 09:06:38 [facility] IntraOp Sign In Entry 1 Patient, Site, Yes Procedure Identified Surgical Consent Yes Confirmed Relevant Surgical Yes Documents Available Surgical Site N/A Marked by person performing procedure Anesthesia Machine Yes Check Completed Medication Checks Yes Completed Allergies Yes Airway Difficult No Airway/Aspiration Risk Difficult Yes Airway/Aspiration Intervention Equipment Available Blood Loss Risk Yes Blood Loss Yes Intervention Equipment Prepared and Ready Blood Identifiers Not applicable Verified Per Policy Hypothermia Risk Yes Warming Measures Yes Taken Last Modified By: Corey Castano RN 03/21/20 09:06:55 [facility] IntraOp Sign Out Entry 1 RN Confirmation Surgical Yes Procedure(s) Identified Instrument, Sponge Yes and Sharps Counts Correct/Documented Equipment Problems Yes Documented Specimen Labeled Yes Correctly Urinary Catheter N/A Documented in [employer]View Goncalves Patient Yes Recovery Concerns Reviewed with Anesthesia Provider, Surgeon and RN Goncalves Patient Yes Management Concerns Reviewed with Anesthesia Provider, Surgeon and RN Safety Checklist Yes Elements Complete? RN Sign Out Corey Castano, RN Signature RN Sign Out 03/21/20 09:43:00 Signature Date/Time Plan of Care Outcome - Fire Risk OUTCOME STATEMENT: Goal met Patient is free from injury related to surgical fire Plan of Care Outcome - Pt Positioning OUTCOME STATEMENT: Goal met Absence of signs and symptoms of positioning injury. Plan of Care Outcome - Skin Prep OUTCOME STATEMENT: Goal met Intraoperative care is consistent with measures to prevent infection Plan of Care Outcome - Xray/Images OUTCOME STATEMENT: Goal met Absence of observable signs or symptoms of radiation injury Plan of Care Outcome - Counts OUTCOME STATEMENT: Goal met Absence of signs and symptoms of injury related to extraneous objects Last Modified By: Corey Castano RN 03/21/20 09:43:41 [facility] IntraOp Sign Out Audit 03/21/20 09:43:41 Fitness Manager: [email or web address] Modifier: [email or web address] <+> 1 RN Sign Out Signature Date/Time [facility] IntraOp Skin Prep Entry 1 Entry 2 Procedure Discectomy Minimally Discectomy Minimally Invasive Invasive Prescribed Yes Yes Pre-Surgical Prep Completed Prep Area OP SITE OP SITE Intraop Prep Integumentary WDL WDL Assessment WDL WDL Patient Exceptions Patients Normal Integumentary Variance(s) Integumentary Assessment Comment Prep Agents Alcohol, Chlorhexadine DuraPrep gluconate Prep by CINDYJAMISON WASSON, SANDRA D, RN MD-SNU Skin Prep Comment Hair Removal Methods No hair removal No hair removal performed performed Hair Removal Site Hair Removal By [facility] Modified By: Corey Castano RN Byrd, Charlie D, RN 03/21/20 09:01:44 03/21/20 09:01:44 [facility] IntraOp Surgical Procedures Entry 1 Procedure Discectomy Minimally Invasive Additional MIS L4-5 DISCECTOMY Procedure WITH LAMINECTOMY) Description Primary Procedure Yes Primary Surgeon JAMISON WHITE MD-SNIrina Start 03/21/20 08:52:00 Stop 03/21/20 09:33:00 Anesthesia Type General Specialty SN Neurosurgery Wound Class I - Clean Last Modified By: Corey Castano RN 03/21/20 09:33:55 [facility] IntraOp Surgical Procedures Audit 03/21/20 09:33:55 Fitness Manager: [email or web address] Modifier: [email or web address] <+> 1 Stop 03/21/20 09:24:57 Fitness Manager: [email or web address] Modifier: [email or web address] 1 <*> Procedure Discectomy Minimally Invasive 1 <*> Additional Procedure Description MIS L4-5 DISCECTOMY POSS LAMINECTOMY) [facility] IntraOp Temp Regulation Devices Entry 1 Temp Regulation Temperature Forced Air Warming Regulation Device device, Warm blankets Temperature 63378 Regulation Device Serial/Unit Number Temperature Upper body Regulation Site Temperature Device 43 C Setting Temperature GLORIA SANTIAGO CRNA Regulation Device Applied by Timmy Modified By: Corey Castano RN 03/21/20 09:00:48 [facility] IntraOP Time Out Entry 1 Procedure to be Discectomy Minimally Performed Invasive Time Out Time Out Pause Time 03/21/20 08:51:00 All activity Yes suspended (unless life threatening emergency) Team Verbally Correct patient Confirms Information identity, Consent form is present and accurate, Agreement on the procedure to be done, Correct patient position, Relevant images/results properly labeled/appropriately displayed, Confirm antibiotics have been administered, Confirm the skin prep has dried, Confirm prosthesis/implant/devic e is present, Performed in location of procedure after prepped/draped Antibiotic Yes Prophylaxis Administered Or In Progress Within the Last 60 Minutes Beta Miesha N/A Administered Venous Yes Thromboembolism Prophylaxis Required Anticipated Critical Events Surgeon None expected Anesthesia Provider None expected Nursing Assures Sterility of instruments, Equipment concerns or issues, Implant Availability Essential Imaging Yes Labeled and Displayed Last Modified By: Corey Castano RN 03/21/20 08:52:37 [facility] IntraOp X-Ray and Images Entry 1 X-Ray/Imaging Type Fluoroscopy Fluoroscopy Type C-Arm Site OP SITE Aviation Electronics Technician Name Liz Williamson, Barrel Planer Last Modified By: Corey Castano RN 03/21/20 08:53:59 Case Comments <None> Finalized By: VINCE PALM Document Signatures Signed By: Corey Castano RN 03/21/20 13:05 Corey Castano RN 03/21/20 09:43 VINCE PALM 03/23/20 10:19 Unfinalized History Date/Time Username Reason for Unfinalizing Freetext Reason for Unfinalizing 03/21/20 13:04 SMOOTH Correct Documentation 2 03/23/20 10:19 SHANTA Correct Billing documented in this encounter Plan of Treatment Not on file documented as of this encounter Visit Diagnoses Not on filedocumented in this encounter
--- OUTSIDE RECORDS SUMMARY | 2024-09-08 11:10 | XMS_ITS | Encounter Summary ---
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 Name: LORETTA NOVOA /Sex: 1960 Female Med Rec #: [id number] Physician: JAMISON WHITE MD-[facility] Financial #: [id number] Pt. Type: O Room/Bed: Admit/Disch: 03/21/20 06:21:00 - Institution: [facility] Main OR PostOp Case Times Entry 1 In PACU II 03/21/20 10:35:00 Ready for PACU II 03/21/20 10:50:00 Discharge Discharge from PACU 03/21/20 11:00:00 II Last Modified By: DMITRI GRULLON RN 03/21/20 12:04:34 Finalized By: DMITRI GRULLON, RN Document Signatures Signed By: DMITRI GRULLON RN 03/21/20 12:04 Electronically signed by Maria Fareri [facility] Conversion Arc Welder Cerner at 07/09/2022 4:31 PM CDT documented in this encounter Plan of Treatment Not on file documented as of this encounter Visit Diagnoses Not on filedocumented in this encounter
--- OUTSIDE RECORDS SUMMARY | 2024-09-08 11:10 | XMS_ITS | Encounter Summary ---
Author Organization [employer] Address [address] [place] [address] Care Team Providers Care Stitcher Utility Name Role Phone Unavailable Primary Care Provider Unavailabl e Encounter Details Date Type Department Care Team (Late st Contact Info) Description 03/21/2020 Transcribed Document [facility] Family Medicine [facility] [place] [address] ProviderMilad MD [address] [place] [phone] Social History Tobacco Use Types Packs/Day Years Used Date Smoking Tobacco: Never Assessed Comments Unknown Sex and Gender Information Value Date Recorded Sex Assigned at Female 09/18/2021 7:23 PM CDT Legal Sex Female 7:23 PM CDT Gender Identity Female 09/18/2021 7:23 PM CDT Sexual Orientation Not on file documented as of this encounter Miscellaneous Notes * Cerner Conversion Note - Milad Becerra MD - 03/21/2020 11:03 AM CLOTH WASHER Patient Education Materials Follows: Outpatient Surgery, Adult, Care After These instructions provide you with information about caring for yourself after your procedure. Your health care provider may also give you more specific instructions. Your treatment has been planned according to current medical practices, but problems sometimes occur. Call your health care provider if you have any problems or questions after your procedure. What can I expect after the procedure? After the procedure, it is common to have: ??? Tenderness and numbness at the surgical site. ??? Swelling and bruising around the surgical site. ??? Nausea. Follow these instructions at home: For at least 24 hours after the procedure: ??? Have a responsible adult stay with you. It is important to have someone help care for you until you are awake and alert. ??? Rest as needed. ??? Do not: ? Participate in activities in which you could fall or become injured. ? Drive. ? Use heavy machinery. ? Drink alcohol. ? Take sleeping pills or medicines that cause drowsiness. ? Make important decisions or sign legal documents. ? Take care of children on your own. Activity ??? Return to your normal activities as told by your health care provider. Ask your health care provider what activities are safe for you. ??? Do not lift anything that is heavier than 10 lb (4.5 kg), or the limit that your health care provider tells you, until your health care provider says it is okay. ??? Do not play contact sports until your health care provider says it is okay. Incision care ??? Follow instructions from your health care provider about how to take care of an incision, if you have one. Make sure you: ? Wash your hands with soap and water before you change your bandage (dressing). If soap and water are not available, use hand telepathist. ? Change your dressing as told by your health care provider. ? Leave stitches (sutures), skin glue, or adhesive strips in place. These skin closures may need to stay in place for 2 weeks or longer. If adhesive strip edges start to loosen and curl up, you may trim the loose edges. Do not remove adhesive strips completely unless your health care provider tells you to do that. ??? Check your incision area every day for signs of infection. Check for: ? More redness, swelling, or pain. ? More fluid or blood. ? Warmth. ? Pus or a bad smell. Medicines ??? Take [id number]-[id number] and prescription medicines only as told by your health care provider. ??? Do not drive or use heavy machinery while taking prescription pain medicines. Eating and drinking ??? Follow the diet recommended by your health care provider. ??? When you are hungry, begin eating light and bland foods such as toast. Gradually return to your regular diet. ??? If you vomit: ? Drink water, juice, or soup when you can drink without vomiting. ? Make sure you have little or no nausea before eating solid foods. General instructions ??? If you have sleep apnea, surgery and certain medicines can increase your risk for breathing problems. Follow instructions from your HCP about wearing your sleep device: ? Anytime you are sleeping, including during daytime naps. ? While taking prescription pain medicines, sleeping medicines, or medicines that make you drowsy. ??? Do not use any tobacco products, such as cigarettes, chewing tobacco, and e-cigarettes, for as long as possible. ??? If you smoke, do not smoke without supervision. ??? Keep all follow-up visits as told by your health care provider. This is important. Contact a health care provider if: ??? You have more redness, swelling, or pain around your incision. ??? You have more fluid or blood coming from your incision. ??? Your incision feels warm to the touch. ??? You have pus or a bad smell coming from your incision. ??? You have a fever. ??? You feel light-headed or you faint. ??? You develop a rash. ??? You keep feeling nauseous or keep vomiting. ??? You have very bad pain, even after taking the medicines your health care provider has prescribed or recommended. ??? You have constipation. Get help right away if: ??? You are unable to pass urine. ??? You have trouble breathing. Summary ??? Have a responsible adult stay with you for at least 24 hours after the procedure. ??? Nausea is common after a procedure. Make sure you have little or no nausea before eating solid foods. Follow the diet recommended by your health care provider. ??? Ask your health care provider what activities are safe for you. This information is not intended to replace advice given to you by your health care provider. Make sure you discuss any questions you have with your health care provider. Document Released: 06/30/2016 Document Revised: 06/08/2018 Document Reviewed: 06/30/2016 [employer] Patient Education ? 2020 [employer] documented in this encounter Plan of Treatment Not on file documented as of this encounter Visit Diagnoses Not on filedocumented in this encounter
--- OUTSIDE RECORDS SUMMARY | 2024-09-08 11:10 | XMS_ITS | Encounter Summary ---
Author Organization [employer] Address [address] [place] [address] Care Team Providers Care Produce Shipper Name Role Phone Unavailable Primary Care Provider Unavailabl e Encounter Details Date Type Department Care Team (Late st Contact Info) Description 03/21/2020 Transcribed Document [facility] [address] [facility] [address] [place] [id number] Sinan Caballero MD [address] [place] [address] Social History Tobacco Use Types Packs/Day Years Used Date Smoking Tobacco: Never Assessed Comments Unknown Sex and Gender Information Value Date Recorded Sex Assigned at Female 09/18/2021 7:23 PM CDT Legal Sex Female 7:23 PM CDT Gender Identity Female 09/18/2021 7:23 PM CDT Sexual Orientation Not on file documented as of this encounter Miscellaneous Notes * Cerner Conversion Note - Sinan Caballero MD - 03/21/2020 10:52 AM EST DATE OF PROCEDURE: 03/21/2020 SURGEON: Sinan Caballero MD PRIMARY CARE PHYSICIAN: Santiago Mckeon MD. PREOPERATIVE DIAGNOSES: 1. Right L4-5 herniated disk. 2. 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 POSTOPERATIVE DIAGNOSES: 1. Right L4-5 herniated disk. 2. 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 INDICATION FOR PROCEDURE: 1. Right L4-5 herniated disk. 2. 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 PROCEDURES PERFORMED: 1. Right L4-5 lumbar microdiskectomy. 2. Minimally invasive laminectomy at L4-5. NUCLEAR OFFICER: Sridhar Aguirre. TYPE OF ANESTHESIA: GEA. DESCRIPTION OF PROCEDURE IN DETAIL: Once consent was noted to be on chart, Mrs. Novoa was taken to the operating room. She was anesthetized and placed into the prone position on a Ruddy spine frame. All pressure points were carefully checked and padded. She was prepped and draped in usual sterile fashion. A time-out was called. A 1 inch incision was made 1.5 cm to the right of midline at L4-5. A tubular dilator system was docked on the right L4-5 interspace and confirmed with intraoperative fluoroscopy. Operating microscope was brought into the field. Soft tissue was removed off L4-5. High-speed drill and #2 and #3 Kerrison were used to perform a hemilaminectomy, mesial facetectomy, and foraminotomy. The ligamentum flavum was removed. The descending L5 nerve root was identified and retracted medially, and an incision was made into the posterior longitudinal ligament. Several fragments of disk were removed fully decompressing the nerve anteriorly. We removed additional disk from the disk space in order to try to prevent a reherniation. Once this was fully decompressed, the nerve hook passed easily along the descending L5 nerve root. We then adjusted the angle of the retractor and performed a minimally invasive laminectomy fully decompressing the left lateral recess of L4-5 using #2 and #3 Kerrison. Full decompression was achieved. No CSF was visualized throughout this procedure. Retractor was removed. 1 Vicryl reapproximated the fascia after meticulous hemostasis was obtained. 2-0 Vicryl closed the space and closed the skin subcuticularly. Mastisol and Steri-Strips were applied. Sridhar Aguirre assisted throughout the surgery and helped perform the closure. SPECIMEN SENT: None. ESTIMATED BLOOD LOSS: 25 mL. DRAINS: None. COMPLICATIONS: None. /[id number] MD HUSSEIN Arredondo/AQ / MPT / MODL /[id number] CC: Santiago Mckeon MD documented in this encounter Plan of Treatment Not on file documented as of this encounter Visit Diagnoses Not on filedocumented in this encounter
--- OUTSIDE RECORDS SUMMARY | 2024-09-08 11:10 | XMS_ITS | Encounter Summary ---
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 [place] [address] LORETTA NOVOA :1960 Visit Time:03/21/2020 What to do next Your Diagnosis Radiculopathy, cervical region, Radiculopathy, cervical region Instructions From Your Care Team Diet after Discharge: Resume usual diet as tolerated, Do not drink any alcoholic beverages, Drink at least 8-10 glasses of water per day Activity after Discharge: As tolerated, Rest and relax today, No strenuous activity Lifting Restrictions: No heavy lifting over 10 pounds Driving after Discharge: Do not drive until 24 hours after no longer taking pain medications Showering/Bathing: May shower, No tub bathing, soaking or swimming may shower in 24 hours but cover incision wit hplastic cling wrap. Notify Provider of: signs of infection, fever greater then 101, sever pain, swelling and or bleeding. Wound/Incision Care after Discharge: Keep operative site/wound site clean and dry, remove dressing in 3 days but don't get incision wet for 1 week _ use stool softener if taking narcotic pain medicine. Discharge Follow Up Instructions: f/u 4-5 weeks post op. f/u 2 weeks for suture removal if sutures are placed Follow-Up Appointments Follow Up with JAMISON WHITE When 03/31/2020 03:00 PM EST Comments Appointment has been made Where: [address] (FRIDAY ONLY) [place] [phone] [employer] (1) Medications What How Much When Instructions Next Dose atorvastatin (atorvastatin 20 mg oral tablet) Oral Every Day gabapentin (gabapentin 100 mg oral capsule) 1 Capsule(s) Oral At Bedtime venlafaxine (Effexor) Oral Every Day Take your medications faithfully. Do NOT skip medication. Do NOT stop taking medications without the direction of a physician. Carry a list of your medications with you at all times, and take this medication list with you to your first follow up visit. Report any side effects. Avoid herbal remedies unless discussed with your physician. As part of your treatment plan, your physician may have prescribed a limited course of a controlled substance. This medication may be given to help people with moderate or severe pain or for other medical conditions, but there are risks involved with treatment. Common side effects may include nausea, constipation, drowsiness, sweating, itching, dry mouth, and rash. More serious side effects may include cognitive and motor impairment, like problems with thinking, concentrating, alertness, and movement (e.g. slowed reflexes), and driving and operating heavy machinery can be dangerous. It is important for you to talk to your physician if you have these side effects or questions. These controlled substances can produce physical dependence and be habit-forming if taken for an extended period of time, which means that the body has gotten used to them and may experience withdrawal symptoms if they are abruptly stopped. Withdrawal symptoms can include runny nose, sweating, goose bumps, diarrhea, abdominal cramping, rapid heartbeat, difficulty sleeping, and nervousness. Please dispose of unused and medications per pharmacy guidance. Education Materials Outpatient Surgery, Adult, Care After These instructions [...] and water are not available, use hand drug safety scientist. ? Change your dressing as told by [...] or a bad smell. Medicines ??? Take [id number] and prescription medicines only as told by [...] 06/30/2016 Document Revised: 06/08/2018 Document Reviewed: 06/30/2016 [email or web address] Patient Education ?? 2020 [employer]. Emergency Awareness and Preventative Care STROKE is an EMERGENCY Every Minute Counts Act FAST and Check for these signs: FACE Does the face look uneven? ARM Does one arm drift down? SPEECH Does their speech sound strange? TIME Call at any sign of stroke Stroke Risk Factors Atrial Fibrillation (irregular heartbeat) Diabetes Family history of stroke Heart Disease Heavy alcohol use High Blood Pressure High Cholesterol Physical inactivity and obesity Smoking Cigarette Smoking The facts are clear, cigarette smoking will shorten your life. Smoking can cause many illnesses along the way. As a healthcare provider, we recommend that you stop smoking. Assistance with quitting is available by contacting 6-187-DCCU3DMGAMENOW. This is a free resource providing counseling, support, and referral. Or you may contact your personal physician. National Suicide Prevention Lifeline: The National Suicide Prevention Lifeline is a national network of local crisis centers that provides free and confidential emotional support to people in suicidal crisis or emotional distress 24 hours a day, 7 days a week. Don't Wait! Stop a Heart Attack Before it Starts What is a heart attack? A heart attack is damage or to a part of the heart from severely decreased or lack of blood flow to the heart. Over time, arteries can become narrow from the buildup of fat and cholesterol, which is called plaque. The plaque can rupture causing a blood clot to form. When the blood clot forms, the artery can become severely narrowed or completely blocked, causing a heart attack. Heart attack is the leading cause of in the [place]. 85% of muscle damage occurs within the first 2 hours. Delay in the recognition of heart attack symptoms increases the chances of . Know the early symptoms of a heart attack: Nausea Feeling of fullness in chest Jaw Pain Pain that travels down one or both arms Fatigue/being tired Anxiety Back Pain Chest pressure, squeezing, or discomfort Shortness of breath Sweating, or a cold sweat Feeling of impending doom There are unusual signs of a heart attack, too! Women, the elderly, and diabetics may present with atypical symptoms: Fainting/dizziness Weakness Confusion Risk Factors for a Heart Attack Some heart disease risk factors, such as age and family history, cannot be changed. Others, like smoking and lack of exercise, can be changed. Smoking High Cholesterol High Blood Pressure Family History Obesity Age Gender (Males are at higher risk) Lack of Exercise Diabetes Diet Stress Excessive Alcohol Intake If you or someone you know is experiencing the signs and symptoms of a heart attack, DON???T DELAY. Call immediately and seek help. If someone collapses, perform CPR! Do not attempt to drive if you are having symptoms of heart attack. Hands-Only CPR Why Hands-Only CPR? Hands-Only CPR has been shown to be as effective as conventional CPR for cardiac arrests that occur outside of a hospital. Survival depends on immediately receiving CPR from someone nearby. How do you perform Hands-Only CPR? There are two easy steps: Call if you see a teen or adult collapse Push hard and fast in the center of the chest at a beat of 100 beats per minute. Save a life! 4 WAYS TO GET AHEAD OF SEPSIS SEPSIS is a MEDICAL EMERGENCY. Time matters! Infections put you and your family at risk for a life-threatening condition called sepsis. Sepsis is the body's extreme response to an infection. It is life-threatening, and without timely treatment, sepsis can rapidly lead to tissue damage, organ failure, and . Sepsis happens when an infection you already have-in your skin, lungs, urinary tract or somewhere else-triggers a chain reaction throughout your body. 1 PREVENT INFECTIONS Take good care of chronic conditions. Talk to your doctor about getting the recommended vaccines. 2 PRACTICE GOOD HYGIENE Wash your hands frequently. Keep cuts or open sores clean and covered until they are healed. 3 KNOW THE SYMPTOMS Confusion or disorientation Shortness of breath High heart rate Fever, shivering, or feeling very cold Extreme pain or discomfort Clammy or sweaty skin 4 ACT FAST Get medical care IMMEDIATELY if you suspect sepsis or if you have an infection that is not getting better or is getting worse. To learn more about sepsis and how to prevent infections, visit www.cdc.gov/sepsis. Test Results Laboratory or Other Results This Visit (last charted value for your 03/21/2020 visit) Hematology 03/21/2020 8:02 AM WBC: 7.7 K/uL -- Normal range between ( 4.5 and 10.5 ) RBC: 4.18 Million/uL -- Normal range between ( 3.93 and 5.22 ) Hct: 39.6 % -- Normal range between ( 34.1 and 44.9 ) Hgb: 13.1 g/dL -- Normal range between ( 11.2 and 15.7 ) Platelet Count: 240 K/uL -- Normal range between ( 163 and 369 ) MCH: 31.3 pg -- Normal range between ( 25.6 and 32.2 ) MCHC: 33.1 Gram/dL -- Normal range between ( 32.2 and 36.5 ) MCV: 94.7 fL -- Normal range between ( 79.0 and 94.8 ) Slide Review: No Eos %: 2.7 % -- Normal range between ( 0.0 and 7.0 ) [place] #: 0.77 K/uL -- Normal range between ( 0.16 and 1.00 ) Eos #: 0.21 x10(3)/uL -- Normal range between ( 0.00 and 0.80 ) [place] %: 10.0 % -- Normal range between ( 3.0 and 9.0 ) Baso %: 0.5 % -- Normal range between ( 0.0 and 1.5 ) Baso #: 0.04 x10(3)/uL -- Normal range between ( 0.00 and 0.20 ) RDW: 12.3 % -- Normal range between ( 11.7 and 14.9 ) Neut %: 48.3 % -- Normal range between ( 34.0 and 71.0 ) Neut #: 3.71 K/uL -- Normal range between ( 1.56 and 6.13 ) Lymph %: 38.1 % -- Normal range between ( 19.3 and 53.1 ) Lymph #: 2.93 x10(3)/uL -- Normal range between ( 1.00 and 3.90 ) MPV: 11.0 fL -- Normal range between ( 9.4 and 12.4 ) IG#: 0.03 x10(3)/uL -- Normal range between ( 0.00 and 0.05 ) IG%: 0.40 % -- Normal range between ( 0.00 and 0.60 ) General Chemistry 03/21/2020 8:02 AM Creatinine Level: 0.80 mg/dL -- Normal range between ( 0.55 and 1.02 ) Sodium Level: 141 mmol/L -- Normal range between ( 136 and 146 ) Potassium Level: 4.5 mmol/L -- Normal range between ( 3.5 and 5.1 ) Chloride Level: 112 mmol/L -- Normal range between ( 102 and 112 ) Carbon Dioxide Level: 27 mmol/L -- Normal range between ( 21 and 32 ) Anion Gap: 6 -- Normal range between ( 9 and 20 ) Bun/Creatinine: 22.5 -- Normal range between ( 8.0 and 20.0 ) Calcium Level: 9.1 mg/dL -- Normal range between ( 8.4 and 10.1 ) eGFR : >60 mL/min/1.73m2 eGFR NonAfrican: >60 mL/min/1.73m2 Glucose Level: 97 mg/dL -- Normal range between ( 74 and 106 ) Blood Urea Nitrogen: 18 mg/dL -- Normal range between ( 7 and 22 ) Diagnostic Radiology 03/21/2020 9:42 AM CR Fluoro in OR: CR Fluoro in OR Patient Name:LORETTA NOVOA I have received this information and was given the opportunity to ask questions. Patient/Tinsmith Apprentice Name: Patient/Tinsmith Apprentice Signature: Relationship to Patient: Clinician/Hospital Tinsmith Apprentice Signature: Date: Electronically signed by Tamy, [facility] Conversion Religion Instructor Cerner at 07/09/2022 4:30 PM CDT documented in this encounter Plan of Treatment Not on file documented as of this encounter Visit Diagnoses Not on filedocumented in this encounter
--- OUTSIDE RECORDS SUMMARY | 2024-09-08 11:10 | XMS_ITS | Patient Health Record ---
Author Organization [facility] Address [address] [place] [address] Care Team Providers Care Fabric Normalizer Name Role Phone Santiago Mckeon Primary Care Provider Lidia Gabriel Unavailable [phone] Migration, Provider Unavailable Unavailable Allergies Allergen (clinical drug ingredient) Drug/Non Drug Allergy documented on EMR Reaction Allergy Type Onset Date Status meloxicam Meloxicam angioedema Drug Allergy Active diclofenac Diclofenac hives Drug Allergy Activ e Results Component Value Reference Range Notes VITAMIN D,25-OH,TOTAL,IA (17 306) (Not yet reviewed by provider) Interpretation: Performing Lab:FABIAN, [facility], [facility] ClinicWcinPZ[address] Nj Tillman Notes/Report: NON-FASTING; NON-FASTING; NON-FASTING; NON-FASTING; [...] D, (D2,D3), LC/MS/MS is recommended: order code 05360 (patients >2yrs). See Note 1 Note 1 For additional information, please refer to http://education.NodeFly/faq/SMQ604 (This link is being provided for informational/ educational purposes only.) TSH W/REFLEX TO FT4 (62374) (Not yet reviewed by provider) Interpretation: Performing Lab:FABIAN, [facility] [address], [place] OohxPB[address] Nj Tillman Notes/Report: NON-FASTING; NON-FASTING; NON-FASTING; NON-FASTING; NON-FAST TSH W/REFLEX TO FT4 0.98 0.40-4.50 mIU/L VITAMIN B12 (927) (Not yet r eviewed by provider) Interpretation: Performing Lab:FABIAN, [facility] [address], [employer] SolutionsGvwyXP[address] Nj Tillman Notes/Report: NON-FASTING; NON-FASTING; NON-FASTING; NON-FASTING; NON-FAST VITAMIN B12 909 807-8382 pg/mL CBC (INCLUDES DIFF/PLT) (639 9) (Not yet reviewed by provider) Interpretation: Performing Lab:FABIAN, [facility] [employer] [address], [employer] SolutionsDvwiQC[address] Nj Tillman Notes/Report: NON-FASTING; NON-FASTING; NON-FASTING; NON-FASTING; [...] MPV 11.0 7.5-12.5 fL ABSOLUTE NEUTROPHILS 9835 5943-1878 cells/uL ABSOLUTE LYMPHOCYTES 3211 850-3900 cells/uL ABSOLUTE MONOCYTES 1166 200-950 cells/uL ABSOLUTE EOSINOPHILS 144 15-500 cells/uL ABSOLUTE BASOPHILS 43 0-200 cells/uL NEUTROPHILS 68.3 LYMPHOCYTES 22.3 MONOCYTES 8.1 EOSINOPHILS 1.0 BASOPHILS 0.3 COMPREHENSIVE METABOLIC PANE L (09742) (Not yet reviewed by provider) Interpretation: Performing Lab:CB, [facility] [address], [place] VillanuevaOxijGJ[address] Nj Tillman Notes/Report: NON-FASTING; NON-FASTING; NON-FASTING; NON-FASTING; [...] 27 10-35 U/L ALT 24 6-29 U/L DEXA Hip and Spine - Screeni ng Reviewed date:04/23/2024 09:41:35 AM Interpretation: Performing Lab: Notes/Report: X ray : Spines, Lumbosacral (Not yet reviewed by provider) Interpretation: Performing Lab: Notes/Report: X ray : Spines, Lumbosacral (Not yet reviewed by provider) Interpretation: Performing Lab: Notes/Report: CT Scan : Chest, Lung Cancer Screening Reviewed date:05/13/2024 10:35:25 AM Interpretation: Performing Lab: Notes/Report: LIPID PANEL, STANDARD (7600) Reviewed date:04/23/2024 02:23:08 PM Interpretation: Performing Lab:FABIAN [facility] [address] [facility], [facility] ClinicUgtlUF[address] Nj Tillman Notes/Report: NON-FASTING; NON-FASTING; NON-FASTING; NON-FASTING; [...] equation in the estimation of LDL-C. Geovany SS et al. JEFFRY. 2013;310(19): 3576-6818 (http://ASSET4.SimpleSite/faq/QCW176) CHOL/HDLC RATIO 2.2 <5.0 (calc) NON HDL CHOLESTEROL 111 <130 mg/dL (calc) For patients with diabetes plus 1 major ASCVD risk factor, treating to a non-HDL-C goal of <100 mg/dL (LDL-C of <70 mg/dL) is considered a therapeutic option. COMPREHENSIVE METABOLIC [facility] HEALTHBobby Siu ([address]) Reviewed date:04/23/2024 02:23:09 PM Interpretation: Performing Lab:FABIAN [facility] [address]le[address] [facility], [facility] HospitalPxqdPP[address] Nj Tillman Notes/Report: NON-FASTING; NON-FASTING; NON-FASTING; NON-FASTING; [...] 9) Reviewed date:04/23/2024 02:23:09 PM Interpretation: Performing Lab:FABIAN [facility] [address], TercicaQwlyLV[address] Nj Tillman Notes/Report: NON-FASTING; NON-FASTING; NON-FASTING; NON-FASTING; [...] MPV 10.9 7.5-12.5 fL ABSOLUTE NEUTROPHILS 4000 2802-9625 cells/uL ABSOLUTE LYMPHOCYTES 2343 850-3900 cells/uL ABSOLUTE MONOCYTES 723 200-950 cells/uL ABSOLUTE EOSINOPHILS 183 15-500 cells/uL ABSOLUTE BASOPHILS 51 0-200 cells/uL NEUTROPHILS 54.8 LYMPHOCYTES 32.1 MONOCYTES 9.9 EOSINOPHILS 2.5 BASOPHILS 0.7 HEMOGLOBIN A1c (496) Reviewed date:04/23/2024 02:23:09 PM Interpretation: Performing Lab:FABIAN, [facility] [address], [employer] SolutionsPtxmRS[address] Nj Tillman Notes/Report: NON-FASTING; NON-FASTING; NON-FASTING; NON-FASTING; [...] diagnosis of diabetes in children. According to [place] Diabetes Association (ADA) guidelines, hemoglobin A1c <7.0% represents optimal control in non- diabetic patients. Different metrics may apply to specific patient populations. Standards of Medical Care in Diabetes(ADA). TSH W/REFLEX TO FT4 (76675) Reviewed date:04/23/2024 02:23:09 PM Interpretation: Performing Lab:FABIAN, [facility] Villan[facility]vae[address] [facility] UnityazminSaint [facility], [place] VillanuevaXhngMD[address] Nj Tillman Notes/Report: NON-FASTING; NON-FASTING; NON-FASTING; NON-FASTING; NON-FAST FASTING:YES FASTING: YES TSH W/REFLEX TO FT4 1.67 0.40-4.50 mIU/L Medications Medication SIG (Take, Route, Frequency, Duration) [...] Vaccine Route Administration Date Status Comme nts SHINGRIX IM Intramuscular 03/07/2023 Administered SHINGRIX IM Intramuscular 04/13/2024 Administered Prevnar PCV-20 (Pneumococcal conjugate 20) IM Intramuscular 03/07/2023 Administered Pneumovax 23 IM Intramuscular 11/22/2019 Administered Influenza-Fluzone 3+years (NON-MEDICARE) IM Intramuscular 01/06/2018 Administered FLUZONE 6MO - OLDER IM Intramuscular 02/11/2023 Administer ed FLUZONE 6MO - OLDER IM Intramuscular 04/13/2024 Administer ed Flublok IM Intramuscular 01/26/2022 Administered Arexvy IM Intramuscular 02/11/2023 Administered Adacel (Tdap) Unknown 12/06/2018 Administered Social History Tobacco Use: Social History [...] Problem Status W/U Status Risk Notes Problem 064949466 Mixed hyperlipidemia (E78.2) Active confirmed Problem 73885712 Generalized anxiety disorder (F41.1) Active confirmed Problem 00287254 Other chronic pa in (G89.29) Active confirmed Problem 053969587 Other seasonal allergic rhinitis (J30.2) Active confirmed Problem 312888988 Other allergic rhinitis (J30.89) Active confirmed Problem 61618498 Centrilobular emphysema (J43.2) Active confirmed Problem 826869168 Lumbago with sciatica, right side (M54.41) Active confirmed Problem Sciatica (83422922) Lumbago with sciatica, left side (M54.42) Active confirmed Problem 330574787 Personal history of nicotine dependence (Z87.891) Active confirmed Problem 16078451 Vitamin D deficiency (E55.9) Active confirmed Problem 022063251 Tobacco use disorder (Z72.0) Active confirmed Problem 983713622 Insomnia (G47.00) Active confirmed Problem 430282745 Hyperlipemia, idiopathic familial (E78.5) Active confirmed Problem 630496404 Lung nodules (R91.8) Active confirmed Problem 650188880 Primary osteoarthritis of both knees (M17.0) Active confirmed Problem 752041515 Abnormal mammogr am (R92.8) Active confirmed Problem 82145095 Right sciatic nerve pain (M54.31) Active confirmed Problem 44238987 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.2) Active confirmed Problem 21371163 COPD without exacerbation (J44.9) Active confirmed Problem 786661082 Hot flash, menopausal (N95.1) Active confirmed Problem 659206095 Hot flashes (R23.2) Active confirmed Problem 365607170 Vasomotor sympto ms due to menopause (N95.1) Active confirmed Problem 53030034 Other polyneuropathy (G62.89) Active confirmed Vital Signs Heart Rate 78 /min 08/13/2024 Temperature 98 degrees Fahrenheit 08/13/2024 Blood pressure diastolic 82 mm Hg 08/13/2024 Height 5 ft 5 in in 08/13/2024 Blood pressure systolic 142 mm Hg 08/13/2024 Weight 148 lbs 08/13/2024 BMI 24.63 kg/m2 08/13/2024 Encounters Encounter Location Date Provider Diagnosis [facility] [address] [facility] [address] [place], [place] [address] 06/26/2024 Provider Migration Hot flashes R23.2 ; Muscle strain T14.8XXA ; Other specified disorders of bone density and structure, right thigh M85.851 and Mixed hyperlipidemia E78.2 [facility] [address] [place], [place] [address] 09/02/2024 Lidia Gabriel [facility] [address] [address] 04/13/2024 Lidia Gabriel Muscle strain T14.8X XA [...] cancer Z12.2 and Encounter for immunization Z23 [facility] [address] [address] 08/13/2024 Lidia Gabriel Lumbago with sciatic a, right side M54.41 ; Lumbago with sciatica, left side M54.42 ; Other polyneuropathy G62.89 ; B12 deficiency E53.8 and Vitamin D deficiency E55.9 [facility] [address] [place], [place] [address] 04/14/2024 Lidia Gabriel Asymptomatic postmenopausal state Z78.0 [facility] [address] [place], [place] [address] 04/19/2024 Lidia Gabriel History of nicotine dependence Z87.891 [facility] [address] [place] [address] 05/13/2024 Santiago Mckeon Pulmonary cavitary lesion J98.4 [facility] [address] [place] [address] 08/17/2024 Lidia Gabriel Lumbago with sciatic a, [...] Now finished Shinglex vaccine series. Tdap in 2018. Prevnar and Arexvy in 2022. Hysterectomy years [...] M-Vitamin B12 01/26/2022 M-Vitamin D 25 Hydroxy 01/26/2022 M-Vitamin D 25 Hydroxy 06/27/2021 Physical Therapy Eval and Treat 08/18/19 25 COMPREHENSIVE METABOLIC PANEL (30266) CBC (INCLUDES DIFF/PLT) (6399) 5 VITAMIN B12 (927) 08/13/2024 TSH W/REFLEX TO FT4 (63159) 08/13/2024 VITAMIN D,25-OH,TOTAL,IA (34058) 025 Future Test Test Name Order Date C-VITAMIN B12 03/10/2013 C-VITAMIN D, 25-HYDROXY 03/10/2013 Insurance Providers Payer Name Payer Address Payer Phone Subscriber Number Group Number Insured Name Patient Relationship to Insured Coverage Start Date Coverage End Date [facility] [address] [place] [address] [id number] Jennifer Novoa Self - patient is [...]
--- OUTSIDE RECORDS SUMMARY | 2024-09-08 11:10 | XMS_ITS | Data Portability ---
Author Organization [place] [facility] Address [address] [place] [address] Care Team Providers Care Press Operator Meat Name Role Phone OLAYINKA [place] Primary Care Provider Assessment Encounter Date Assessment Date Assessment LastModified [...] (PROC ) No observ ation record ed. [email or web address] [address] [facility] , [place], [address], 03/22/2020 13:15:34 08/09/19 21 08/07/2020 MRI, lumba r spine , w/wo contr ast No observ ation record ed. [email or web address] [place] [address], [place], [address], 08/08/2020 14:25:11 08/10/19 21 08/09/2020 XR, lumbo sacra l spine , 2 or 3 view, bendi ng only No observ ation record ed. [facility] [address], [place], [address], 08/14/2020 18:27:05 Result Notes None recorded. Procedures Surgical History Date Name Laterality Status Provider Name and Address Organization Details Recorded Time 03/21/20 20 LAMINOTOMY (HEMILAMINECTOMY) , DECOMPRESSION OF NERVE ROOTS, PARTIAL FACECTOTOMY, FORAMINOTOMY AND/OR DISC REMOVAL, LUMBAR (SURG) completed Alicia Moreira [facility] 03/23/2020 13:55:30 tonsillectomy completed Rach Todd [facility] 02/14/2020 09:05:02 hysterectomy completed [facility] 02/14/2020 09:05:13 Imaging Results None recorded. Procedure Notes None recorded. Medical Equipment None Reported. Allergies Allergen ID Allergen Name Allergen Category Reaction Reaction Severity Criticality Documentation Date Start Date Code Code System Note Provider Name and Address Organization Details Recorded Time 341105 Mobic medicatio n Not available Not available Not available 02/16/20162013 81745 9 RxNorm Comme nt: Creat ed By: Palmira lopez;Patrick eated Date: 2013 9:47: 11 AM; Not Available [facility] 6 05:33:08 612753 diclofena c sodium medicatio n Not available Not available Not available 02/16/20162013 24228 4 RxNorm Comme nt: Creat ed By: Franc Leon carmen;C reate d Date: 2013 4:23: 53 PM; Not Available [facility] 6 08:49:48 Medications Name Sig Start Date [...] Updated DateTime 05/15/2020 165.1 cm 25.6 kg/m2 06112.22 g 120 mm[Hg] 80 mm[Hg] [facility] 1 09:00:09 Date Recorded Body height Body mass index (BMI) Body weight Systolic blood pressure Diastolic blood pressure Provider Name and Address Organization Details Last Updated DateTime 02/14/2020 165.1 cm 25.6 kg/m2 33071.22 g 120 mm[Hg] 80 mm[Hg] [facility] 0 09:05:59 Social History None recorded. [...] SNOMED-CT Code Diagnosis ICD10 Code Diagnosis Note [id number] JAMISON WHITE MD [facility] [address] [place] [address] 02/14/2020 08:41:56 02/15/2020 14:04:13 Lumbar radiculopathy 179014663 M54.16 Time spent reviewing images, discussing the diagnosis and coordinati ng care: 30min [id number] JAMISON WHITE MD SURGERY SCHEDULE [address] [place] [address] 03/23/2020 14:09:34 03/23/2020 15:01:07 [id number] JAMISON WHITE MD [facility] [address] [facility] [address] [address] [place] [address] 05/15/2020 08:48:27 05/15/2020 15:40:46 Postoperative care [id number] Z48.89 Health Concerns Section Related Observation LastModified by Organization Detai ls LastModified Time None Recorded Concern Status LastModified by Organization Details LastModified Time None Recorded Advance Directives Directive None Recorded Payers Insurance Date Sequence Insurance Name Policy Number Policy Stokes Covered Member ID Stokes Member ID Guarantor Name 06/27/2022 1 [id number] Jennifer Novoa [id number] Jennifer Novoa Notes Date Note Type Note Provider Name and Address Organization Details Recorded Time 02/14/2020 text/html 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 Cristobal. JAMISON WHITE MD [address] [place] [address], [address], [facility] 02/14/2020 09:40:02 05/15/2020 text/html Jennifer Novoa is a 59-year-old female status post right L4-5 discectomy performed on March 21, 2020. She reports good relief of the radicular pain, but continues to have some numbness and tingling, especially in the morning. She went back to work 2 weeks after the surgery. JAMISON WHITE MD [facility] [place], [address], [facility] 05/15/2020 09:23:52 OBGyn Episode No OBEpisode recorded.
--- NOTE | 2024-09-08 11:11 | EXP.PAIN.SOA ---
[facility] Disclaimer: The information contained in this section may have been updated after the patient was seen, as this information can be updated by other users. 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 current occupational exposures/hazards: No caffeine: Yes Have you lived/traveled outside US in past 30 days?: No Contact w/someone who lives/traveled outside US past 30 days?: No Exposure to someone with infectious disease in past 14 days?: No Do you have a fever (greater than 100.4 F or 38 C)?: No Have you tested positive for COVID-19?: No Exposed to someone with COVID-19 in past 14 days?: No Do you have a sore throat?: No Do you have a cough?: No Do you have any weakness?: No Do you have any diarrhea?: No Are you experiencing any unusual bleeding?: No Do you have any muscle aches/pain?: No Do you have any abdominal pain?: No Are you experiencing loss of taste or smell?: No PM Subjective & Objective Subjective Subjective:: Patient is a pleasant 63-year-old female who presents today for worsening pain. Patient was previously seen in our office back in August 2021 we were actively treating her for sacroiliitis. Her last injection was in August 2021. Patient does state today that this pain is a little bit different. She rates it an 8 out of 10. Patient states it is going all across her low back and does radiate down into both her legs with numbness and tingling. She states that the pain is worse with increased walking or standing and that she frequently has to stop and take a break for improvement. Patient has had updated x-ray imaging however that the advanced imaging was denied due to not having recent physical therapy. Patient has started this therapy however she has been continuing to see chiropractor therapy for longer than a year with minimal changes. Her Tony has been reviewed and is appropriate. Patient is interested in injection therapy as the pain is interfering with her ability perform activities of daily living such as cooking and cleaning. Review of Systems: General: No recent weight changes, no fever, no sleep disturbances Respiratory: No cough, no shortness of air, no recurring pulmonary infections Cardiovascular/peripheral vascular: No chest pain, no palpitations, no edema, no shortness of breath Gastrointestinal: No new onset incontinence, normal bowel movements reported Genitourinary: No new onset incontinence Musculoskeletal: Low back pain, bilateral leg numbness tingling Psychiatric: [Normal mood/affect] Neurological: [Denies weakness in extremities], [denies balance issues] Pain at rest (0-10 scale): 8 Objective Objective:: Physical Exam: General: Alert and oriented x3, no acute distress, pleasant and cooperative Lungs: Respirations even and unlabored, symmetrical chest expansion Eyes: PERRL Musculoskeletal: Flexion and extension of lumbar [spine] somewhat guarded secondary to pain, [antalgic gait noted] positive leg raise Neurological: Speech clear, no gross sensory deficit Has patient had previous pain injection?: No Conservative treatment options previously tried: Home exercise plan Length of treatment: Longer than 12 weeks, Physical Therapy Length of treatment: Ongoing and Chiropractor Length of treatment: Longer than 12 weeks with no additional improvement Meds Home Medications and Allergies Home Medications ?Medication ?Instructions ?Recorded ?Confirmed ?Type atorvastatin 40 mg tablet 40 mg PO HS Cholesterol 12/24/19 10/24/22 History ergocalciferol (vitamin D2) 1,250 1,250 mcg PO WEEKLY 10/22/22 10/24/22 History mcg (50,000 unit) capsule valacyclovir 1 gram tablet 1,000 mg PO Q8H #21 tabs 10/22/22 10/24/22 Rx venlafaxine 75 mg capsule,extended 150 mg PO DAILY hot flashes 10/22/22 10/24/22 History release 24 hr prednisone 10 mg tablet 10 mg PO DIRECTED #42 tabs 10/24/22 10/24/22 Rx New Prescriptions to Start Prescriptions: Allergies Allergy/AdvReac Type Severity Reaction Status Date / Time meloxicam (MELOXICAM) Allergy Unknown Verified 10/24/22 14:35 Assessment and Plan *Assessment and plan (1) Degenerative disc disease: Status: Acute Category: Medical (2) Lumbar radiculopathy: Status: Chronic Category: Medical Code(s): M54.16 - Radiculopathy, lumbar region (3) Low back pain: Status: Chronic Qualifiers: Chronicity: chronic Back pain laterality: bilateral Sciatica presence: without sciatica Qualified Code(s): M54.5 - Low back pain; G89.29 - Other chronic pain Category: Medical Code(s): M54.50 - Low back pain, unspecified Plan Patient is experiencing worsening pain in her low back with numbness and tingling into her lower extremities. Patient did have limited range of motion of her lumbar spine with a positive leg raise. I did discuss with patient that I do believe they would benefit from a lumbar epidural steroid injection. Risk and benefits were discussed with patient and the patient would like to proceed forward with this plan of care. Patient is not on any blood thinners. Patient has tried and failed conservative therapy including oral medications, heat and ice, topicals, chiropractor therapy and ongoing physical therapy with continued at home stretching exercise for longer than 12 weeks between injections. Patient has had chronic back pain for longer than 6 months. Patient has not had an epidural in the past to compare to. Patient did have facet arthropathy with sclerosis noted at the L4-L5 level. Patient did also complain of the pain radiating around her lateral upper thighs and going down. We will schedule the patient for an LESI L4-L5 under fluoroscopy. I will also order the patient a compounded cream. Patient has been instructed to contact the clinic with any concerns before the next appointment. Dr. Cristobal has reviewed this note and agrees with this plan of care. This note was dictated using voice recognition software and make contain errors or omissions. All injections are used with Lidocaine, Bupivacaine and dexamethasone. Occasionally urine drug screen is needed to verify patient's compliance with our office pain contract. This is ordered based off specific treatments related to chronic pain with the potential to abuse certain medications.
--- OUTSIDE RECORDS SUMMARY | 2024-09-08 11:11 | XMS_ITS | Clinical Summary ---
Author Organization [employer] [facility] Address [address] [place] [address] Care Team Providers Care Supervisor Volunteer Services Name Role Phone Unavailable Primary Care Provider [...]
--- OUTSIDE RECORDS SUMMARY | 2024-09-08 11:11 | XMS_ITS | Encounter Summary ---
Author Organization [employer] Address [address] [place] [address] Care Team Providers Care High School Math Tutor Name Role Phone Unavailable Primary Care Provider Unavailabl e Encounter Details Date Type Department Care Team (Late st Contact Info) Description 03/21/2020 Transcribed Document [facility] Family Medicine [address] [place] [address] ProviderMilad MD [address] [place] [address] Social History Tobacco Use Types [...] Conversion Note - Historical ProviderMD - 03/21/2020 8:00 AM SENIOR IT ENGINEER [facility] Main OR Preop Summary Primary Physician: JAMISON WHITE MD-SANTINO Finalized Date/Time: 03/21/20 08:22:20 Pt. Name: LORETTA NOVOA /Sex: 1960 Female Med Rec #: [id number] Physician: JAMISON WHITE MD-SANTINO Financial #: [id number] Pt. Type: O Room/Bed: Admit/Disch: 03/21/20 06:21:00 - Institution: [facility] PreOp Case Times Entry 1 In Preop 03/21/20 06:38:00 Ready for Holding n/a Room Patient Ready for 03/21/20 08:15:00 Surgery Patient Out of Preop 03/21/20 08:17:00 Patient Out of n/a Holding Room Last Modified By: Yousif May Rn 03/21/20 08:22:10 Finalized By: Yousif May Rn Document Signatures Signed By: Yousif May Rn 03/21/20 08:22 documented in this encounter Plan of Treatment Not on file documented as of this encounter Visit Diagnoses Not on filedocumented in this encounter
--- OUTSIDE RECORDS SUMMARY | 2024-09-08 11:11 | XMS_ITS | Encounter Summary ---
Author Organization [employer] [facility] Address [address] [place] [address] Care Team Providers Care Biometric Screener Name Role Phone Unavailable Primary Care Provider Unavailabl e Encounter Details Date Type Department Care Team (Late st Contact Info) Description 03/20/2020 Transcribed Document [facility] [place] [address] ProviderMilad MD [address] [place], [place] [...] Cerner Conversion Note - Historical ProviderMD - 03/20/2020 2:16 PM PROPERTY UNDERWRITER PAT Adult Entered On: 03/20/2020 14:20 EST Performed On: 03/20/2020 14:16 EST by TUTU BELL Height and Weight, Clinical Dosing Height, Feet : 5 ft(Converted to: 152 cm, 60 Inch) Height, Inches : 5 Inch(Converted to: 0 ft 5 Inch, 12.70 cm) Clinical Height : 165.1 cm Clinical Dosing Weight : 70.45 kg Weight, Pounds : 155 lb Body Surface Area (BSA) : 1.78 m2 Body Mass Index : 25.8 kg/m2 (HI) [place] Body Weight : 57 kg Yousif May Rn - 03/21/2020 7:46 EST Height Source : Measured TUTU BELL - 03/20/2020 14:16 EST Height Entry Format : Yousif Priest Rn - 03/21/2020 7:46 EST Weight Source : Standing scale Weight Entry Format : TUTU Chaudhary - 03/20/2020 14:16 EST Health Histories Smoking Status : 10 or more cigarettes (1/2 pack or more)/day in last 30 days Smokeless Tobacco Status : Never Desires Tobacco Cessation Medication : No Reason for No Tobacco Cessation Medication : Refuses FDA approved medications TUTU BELL - 03/20/2020 14:16 EST Social History (As Of: 03/20/2020 14:20:38 EST) Tobacco: 10 or more cigarettes (1/2 pack or more)/day in last 30 days Smoking Status. Never Smokeless Tobacco Status. Chewing tobacco, Snuff/Dip Smokeless Tobacco Use History. Years of Use: 40. Packs/Tins Daily: 1. (Last Updated: 03/20/2020 14:11:37 EST by TUTU BELL) Alcohol: Alcohol Use History No. Alcohol Use Comment former use. (Last Updated: 03/20/2020 14:11:55 EST by TUTU BELL) Substance Abuse: Drug Use Hx: No. Use in Last 12 Months: No. (Last Updated: 03/20/2020 14:12:01 EST by TUTU BELL) Infectious Disease History Where are the test results? : Paper Copy on chart Tuberculosis Symptoms : None Yousif May Rn - 03/21/2020 7:46 EST Has the patient ever been tested for COVID-19? : Yes, Patient stated results Negative Date of COVID-19 test known? : Yes Date of COVID-19 Test : 03/18/2020 EST Does patient have symptoms of COVID-19? : No COVID19 Screening : No Experiencing Infectious Disease Symptoms : No symptoms Physical contact outside [place] in the last 30 days : No Infectious Disease History : None TUTU BELL - 03/20/2020 14:16 EST COVID19 PreProcedure Screening Is this an Emergent or Add on Procedure? : No Date PreProcedure COVID-19 test known? : Yes Date of PreProcedure COVID-19 : 03/18/2020 EST Has patient been isolated since the test : Yes Exposed to COVID19 symptoms since test? : No TUTU BELL 03/20/2020 14:16 EST Anesthesia/Transfusion History Family History of Anesthesia Reaction : No prior transfusion(s) Blood Transfusion Acceptable to Patient : Yes Transfusion History : Prior anesthesia without reaction Family History of Anesthesia Reaction : None TUTU BELL 03/20/2020 14:16 EST Functional Assessment Functional ADL Evaluation Index EBN Bathing : Independent (2) Dressing : Independent (2) Toileting : Independent (2) Transferring Bed or Chair : Independent (2) Continence : Independent (2) Feeding : Independent (2) TUTU BELL 03/20/2020 14:16 EST ADL Index Score : 12 TUTU BELL 03/20/2020 14:16 EST Advance Directive Patient has Advance Directive *Q : No, patient refuses Advance Directive information TUTU BELL 03/20/2020 14:16 EST Spiritual/Cultural Needs Any Spiritual/Cultural Needs or Requests : No TUTU BELL 03/20/2020 14:16 EST [place] Suicide Severity Rating Scale (C-SSRS) CSSRS Past Month Wish to be : No CSSRS Past Month Suicidal Thoughts : No CSSRS Lifetime Suicide Behavior : No Suicide Severity Rating Score : 0 Suicide Severity Rating : No Additional Care Required at this time TUTU BELL 03/20/2020 14:16 EST Psychosocial History Do You Have a History of the Following? : Patient denies history Currently in Unsafe Situation : No TUTU BELL 03/20/2020 14:16 EST General Info Name/Contact Info Fam/Rep Notified Adm : [employer] Name/Contact Info Physician Notified Adm : [phone] Yousif May Rn - 03/21/2020 8:15 EST Mode of Arrival on Unit : Ambulatory Legal Guardian : Unaccompanied Support Person/Pt Rep Contact Information : so [employer] olivo [phone] TUTU BELL 03/20/2020 14:16 EST Want Family/Rep/Phys Notified of Admit : Yes Yousif May Rn - 03/21/2020 8:15 EST Emergency Contact #1 : - Emergency Contact #1 Phone Number : - Emergency Contact #1 Relationship : - Emergency Contact #2 : - Emergency Contact #2 Phone Number : - Emergency Contact #2 Relationship : - Chief Complaint : - Primary Language : Angolan Communication Barrier : None Corporate Legal Intern Needed : No TUTU BELL - 03/20/2020 14:16 EST John Scale John Sensory Perception : No impairment John Moisture : Rarely moist John Activity : Walks frequently John Mobility : No limitation John Nutrition : Adequate John Friction and Shear : No apparent problem John Score : 22 TUTU BELL - 03/20/2020 14:16 EST Sleep Apnea Risk Assmt BMI Greater Than 35 kg/m2 : No Neck Circumference Greater Than 40 cm : No STOP-BANG Sleep Apnea Risk Level Score : 1 Yousif May Rn - 03/21/2020 7:46 EST Hx of Obstructive Sleep Apnea Diagnosis : No Snore Loudly : No Tired, Fatigued, or Sleepy During Day : No Observed Stopping Breathing During Sleep : No Have/Are Being Treated for Hypertension : No Age over 50 Years Old : Yes Gender Male : No TUTU BELL - 03/20/2020 14:16 EST documented in this encounter Plan of Treatment Not on file documented as of this encounter Visit Diagnoses Not on filedocumented in this encounter
--- OUTSIDE RECORDS SUMMARY | 2024-09-08 11:11 | XMS_ITS | Encounter Summary ---
Author Organization [employer] [facility] Address [address] [place] [address] Care Team Providers Care Leather Sorter Name Role Phone Unavailable Primary Care Provider Unavailabl e Encounter Details Date Type Department Care Team (Late st Contact Info) Description 03/21/2020 Transcribed Document [facility] [address] [employer] [facility] [address] [place] [address] Sinan Caballero MD [address] [id number] Social History Tobacco Use Types Packs/Day Years [...] Note - Sinan Caballero MD - 03/21/2020 9:18 AM EST Patient: LORETTA NOVOA Age: 59 Years Sex: Female : 1960 Chief Complaint - low back and leg pain Primary Care Provider OLAYINKA WASHINGTON (MD [facility] History of Present Illness 59F initially evaluated in the office on 02/14/[address] Caballero for R>L lumbar radiculopathy refractory to conservative management. Dr Caballero recommended a L4-5 MIS microdiscectomy and possible laminectomy. She is here today for the procedure. No significant changes in her symptoms since her last office visit. Review of Systems Constitutional: [No fevers, chills, sweats] Eye: [No recent visual problems, eye discharge, eye pain, redness] HEENT: [No ear pain, nasal congestion, sore throat, voice changes] Respiratory: [No shortness of breath, cough, pain on breathing, sputum production] Cardiovascular: [No Chest pain, palpitations, syncope, shortness of breath while laying flat] Gastrointestinal: [No nausea, vomiting, diarrhea, constipation] Genitourinary: [No hematuria, dysuria, incontinence, lesions on genitalia] Ghulam/Lymph: [Negative for bruising tendency, swollen lymph glands, nosebleeds, history of anticoagulation] Endocrine: [Negative for excessive thirst, excessive hunger, excessive urination, heat or cold intolerance] Musculoskeletal: [No back pain, neck pain, joint pain, muscle pain, decreased range of motion] Integumentary: [No rash, pruritus, abrasions, lesions] Neurologic: [No weakness, numbness, frequent headaches, tremors, blackouts] Psychiatric: [No anxiety, depression, mood changes, hallucinations] Vital Signs HR: 68(Monitored) BP: 101/52 SpO2: 100% HT: 165.1 cm WT: 70.45 kg BMI: 25.8 Oxygen Settings (Last) Oxygen Therapy Mode: Room air (03/21/20 07:49:00) Physical Exam nad A&O pupils equal trachea midline mmm rrr nonlabored breathing no edema skin without obvious lesion 5/5 ble silt gi gu deferred appropriate Assessment/Plan 59F with R>L Lumbar radiculopathy keep npo preop labs verify consent OR today for L45 MIS Microdiscectomy and possible laminectomy Radiculopathy, cervical region, Radiculopathy, cervical region VTE Prophylaxis - Medical No VTE Prophylaxis Orders. Problem List/Past Medical History Ongoing Acid reflux Arthritis Back pain Hot flashes Smoker Historical No qualifying data Procedure/Surgical History Hysterectomy, ban bso, Tonsillectomy. Home Medications (3) Active atorvastatin 20 mg oral tablet , Oral, Daily Effexor , Oral, Daily gabapentin 100 mg oral capsule 100 mg = 1 Cap, Oral, At Bedtime Allergies Mobic (Hives) Social History Alcohol Alcohol Use History No. Alcohol Use Comment former use. Substance Abuse Drug Use Hx: No. Use in Last 12 Months: No. Tobacco 10 or more cigarettes (1/2 pack or more)/day in last 30 days Smoking Status. Never Smokeless Tobacco Status. Chewing tobacco, Snuff/Dip Smokeless Tobacco Use History. Years of Use: 40. Packs/Tins Daily: 1. Family History reviewed noncontributory Additional Documentation Code Status No Code Status Order on Record documented in this encounter Plan of Treatment Not on file documented as of this encounter Visit Diagnoses Not on filedocumented in this encounter
--- OUTSIDE RECORDS SUMMARY | 2024-09-08 11:11 | XMS_ITS | Encounter Summary ---
Author Organization [employer] Address [address] [place] [address] Care Team Providers Care Trimmer Sorter Name Role Phone Unavailable Primary Care Provider Unavailabl e Encounter Details Date Type Department Care Team (Late st Contact Info) Description 03/21/2020 Transcribed Document [facility] [address] [place] [address] ProviderMilad MD [address] [place] [address] Social History Tobacco Use Types [...] - Historical ProviderMD - 03/21/2020 8:52 AM OUTSIDE MACHINIST HELPER [facility] Main OR PACU Summary Primary Physician: JAMISON WHITE MD-SNU Finalized Date/Time: 03/21/20 10:41:51 Pt. Name: LORETTA NOVOA /Sex: 1960 Female Med Rec #: [id number] Physician: JAMISON WHITE MD-SNU Financial #: [id number] Pt. Type: O Room/Bed: Admit/Disch: 03/21/20 06:21:00 - Institution: [facility] Main OR PACU I Case Times Entry 1 In PACU I 03/21/20 09:45:00 Ready for PACU 03/21/20 10:40:00 Discharge Discharge from PACU 03/21/20 10:40:00 I Last Modified By: AR MICHEL RN 03/21/20 10:41:37 Finalized By: AR MICHEL, RN Document Signatures Signed By: AR MICHEL RN 03/21/20 10:41 Electronically signed by Tamy [facility] Conversion Poultry Cleaner Cerner at 07/09/2022 4:31 PM CDT documented in this encounter Plan of Treatment Not on file documented as of this encounter Visit Diagnoses Not on filedocumented in this encounter
--- OUTSIDE RECORDS SUMMARY | 2024-09-08 11:11 | XMS_ITS | Encounter Summary ---
Author Organization [employer] [facility] Address [address] [place] [address] Care Team Providers Care Squad Boss Name Role Phone Unavailable Primary Care Provider Unavailabl e Encounter Details Date Type Department Care Team (Late st Contact Info) Description 03/21/2020 Transcribed Document [facility] [place] Medicine [address] [place] [address] ProviderMilad MD [address] [place] [address] Social History Tobacco Use Types [...] Conversion Note - Historical ProviderMD - 03/21/2020 11:[address] [facility] [place] [address] LORETTA NOVOA :1960 Visit Time:03/21/2020 What [...] Comments Appointment has been made Where: [address] (FRIDAY ONLY) [place] [phone] [place] (1) Medications What How Much When Instructions [...] and water are not available, use hand elementary science teacher. ? Change your dressing as told by [...] or a bad smell. Medicines ??? Take daoc-slf-zqlaggf and prescription medicines only as told by [...] 06/30/2016 Document Revised: 06/08/2018 Document Reviewed: 06/30/2016 [employer] Patient Education ?? 2020 [place]. Emergency Awareness and Preventative Care STROKE is [...] Assistance with quitting is available by contacting [employer]. This is a free resource providing counseling, [...] range between ( 0.0 and 7.0 ) Payette #: 0.77 K/uL -- Normal range between ( 0.16 and 1.00 ) Eos #: 0.21 x10(3)/uL -- Normal range between ( 0.00 and 0.80 ) Payette %: 10.0 % -- Normal range between [...] was given the opportunity to ask questions. Patient/Continuous Process Tanner Rotary Drum Name: Patient/Continuous Process Tanner Rotary Drum Signature: Relationship to Patient: Clinician/Hospital Continuous Process Tanner Rotary Drum Signature: Date: Electronically signed by Tamy, [facility] Conversion Graphic Editor Cerner at 07/09/2022 4:34 PM CDT documented in this encounter Plan of Treatment Not on file documented as of this encounter Visit Diagnoses Not on filedocumented in this encounter
[2024-09-08 11:35] VITALS: BP 135/56; PULSE 83; RESP 18; O2SAT 100; BMI 24.6
== END 2024-09-08 23:59 | disposition home or self-care (01) ==
LOC: SC.PAIN 11:04
PROVIDERS: PCP Internal Medicine Adolescent Medicine; Visit Provider Nurse Practitioner Family
DX: M54.16 Radiculopathy, lumbar region (principal); G89.29 Other chronic pain
CPT/HCPCS: 99202; G0463

== ENCOUNTER 2024-09-20 17:00 | Outpatient (RCR) | payer BC, SELFPAY | END 2024-09-20 23:59 | disposition home or self-care (01) | LOC: PT 17:00 | PROVIDERS: PCP Internal Medicine Adolescent Medicine; Visit Provider Physician Assistant | DX: M54.51 Vertebrogenic low back pain (principal) | CPT/HCPCS: 97014; 97110; 97162; G0283 ==

== ENCOUNTER 2024-09-22 17:01 | Outpatient (RCR) | payer BC, SELFPAY | END 2024-09-22 23:59 | disposition home or self-care (01) | LOC: PT 17:01 | PROVIDERS: PCP Internal Medicine Adolescent Medicine; Visit Provider Physician Assistant | DX: M54.41 Lumbago with sciatica, right side (principal) | CPT/HCPCS: 97014; 97110; G0283 ==

== ENCOUNTER 2024-10-05 12:56 | Day surgery (SDC) | payer BC, SELFPAY ==
[2024-10-05 13:02] VITALS: BP 149/70; PULSE 82; RESP 18; O2SAT 100; BMI 24.6
[2024-10-05] MEDS: DEXAMETHASONE 10MG/ML 1ML VIAL 10 MG (13:13)
[2024-10-05 13:14] VITALS: BP 96/78; PULSE 91; RESP 18; O2SAT 96
[2024-10-05 13:20] VITALS: BP 146/71; PULSE 89; RESP 18; O2SAT 98
--- NOTE | 2024-10-05 13:25 | EXP.PAIN.PRO ---
Procedure Date: 10/05/24 Time: 13:00 Anesthesiologist:: Harvey Peres CRNA Complications:: None Pre-procedure Diagnosis:: Degenerative disc lumbar spine multilevels. Lumbar radiculopathy. Post-procedure Diagnosis:: Same. Indications for Procedure:: Patient is a very pleasant 64-year-old female who comes our clinic today for lumbar epidural steroid injection. Patient describes low lumbar back pain as well as bilateral hip and leg radicular symptoms. She rates her pain 7/10. Lumbar L4-5 level was unacceptable with the Touhy needle. Injection was given at the L5-S1 level. Procedure Details:: Procedure: Lumbar epidural steroid injection under fluoroscopy Informed consent was obtained and the risks and benefits of the procedure were explained to the patient. The patient was taken to the procedure room and noninvasive monitors placed, including noninvasive blood pressure cuff and pulse oximeter. The back was viewed using C-arm Fluoroscopy and prepped using Chloraprep as a cleansing solution and the 5 S1 interspace was palpated. Skin and subcutaneous tissues were anesthetized using lidocaine 1.5% and a 25-gauge needle. After this, an 18-gauge Touhy epidural needle was placed into the 5 S1 interspace and advanced using fluoroscopic guidance and loss of resistance to air until the epidural space was encountered. After confirmation of needle placement in the epidural space, with dye, a solution containing normal saline, 3 mL and dexamethasone 10 mg were incrementally injected into the lumbar epidural space. The patient tolerated the procedure well with no complications. The patient was observed in the Pain Clinic and then discharged home neurologically intact. Plan and Disposition:: Patient was discharged without incident.
== END 2024-10-05 13:20 | disposition home or self-care (01) ==
PROVIDERS: PCP Internal Medicine Adolescent Medicine; Visit Provider Nurse Anesthetist, Certified Registered
DX: M51.16 Intervertebral disc disorders with radiculopathy, lumbar region (principal); M25.552 Pain in left hip; M25.551 Pain in right hip; G89.29 Other chronic pain; M54.50 Low back pain, unspecified; I25.10 Atherosclerotic heart disease of native coronary artery without angina pectoris; F17.210 Nicotine dependence, cigarettes, uncomplicated; Z79.890 Hormone replacement therapy; Z88.6 Allergy status to analgesic agent
CPT/HCPCS: 62323; J1100

== ENCOUNTER 2024-10-21 11:25 | Outpatient (POV) | payer BC, SELFPAY ==
--- OUTSIDE RECORDS SUMMARY | 2024-09-02 11:00 | XMS_ITS ---
Author Organization [facility] Address [address] [place] [address] Care Team Providers Care Back Digger Operator Name Role Phone Santiago Mckeon Primary Care Provider Lidia Gabriel Unavailable [phone] REASON FOR VISIT Labs Encounters Encounter Location Date Provider Diagnosis [facility] [address] [place] [address] 09/02/2024 Lidia Gabriel Plan Of Treatment No Information Progress Notes * Jennifer NOVOAOB:[birth year] (64 yo F)Acc No.[id number]:09/02/2024 LABS Patient: Jennifer JACOBSON Provider: LAYLA Shelby :1960 A ge:63 Y S ex:Female Date:09/02/2024 Address:[address], [place] Pcp:Santiago Mckeon Subjective: * Chief Complaints: * 1 . Labs. * Medical History: Objective: * Vitals: Assessment: Plan: * Treatment: * * Electronic signature of Radha Gabriel PA-C on 10/21/2024 at 11:29 AM EDT Sign off status: Pending * Provider: LAYLA Shelby Date: 0 09/02/2024 Generated for Printi ng/Faxing/eTransmitting on: 0 10/21/2024 11:29 AM EDT
--- OUTSIDE RECORDS SUMMARY | 2024-10-21 11:30 | XMS_ITS | Encounter Summary ---
Author Organization [employer] ([place], [place], [place], [place]) Address [address] [place] [address] Care Team Providers Care Stock Counter Name Role Phone Unavailable Primary Care Provider Unavailabl e Encounter Details Date Type Department Care Team (Late st Contact Info) Description 03/21/2020 Transcribed Document [facility] Family Medicine [facility] [place] [address] ProviderMilad MD [address] [place], [place] [id number] Social History Tobacco Use Types Packs/Day Years [...] - Historical ProviderMD - 03/21/2020 8:52 AM ASSISTED LIVING MANAGER [facility] Main OR IntraOp Summary Primary Physician: JAMISON WHITE MD-SNU Finalized Date/Time: 03/23/20 10:19:59 Pt. Name: JENNIFER BUSTILLOS /Sex: 1960 Female Med Rec #: [id number] Physician: JAMISON WHITE MD-SNU Financial #: [id number] Pt. Type: O Room/Bed: Admit/Disch: 03/21/20 06:21:00 - 03/21/20 11:00:00 Institution: [facility] IntraOp Case Attendance Entry 1 Entry 2 Entry 3 Case Attendee CINDY, Eyad MEIER Charlie D, RN ODALIS HCILEL, RN -SNU Role Performed Surgeon/Proceduralist, Record Label Intern, First Record Label Intern, Second First Time In 03/21/20 08:21:00 03/21/20 08:21:00 03/21/20 08:21:00 Time Out 03/21/20 09:43:00 03/21/20 09:43:00 03/21/20 09:43:00 Procedure Discectomy Minimally Discectomy Minimally Discectomy Minimally Invasive Invasive Invasive Other Attendee Superficial Wound Closed By: Last Modified By: Corey Castano, Corey Whitley, RN Corey Castano, RN 03/21/20 09:43:32 03/21/20 09:43:32 03/21/20 09:43:32 Entry 4 Entry 5 Entry 6 Case Attendee Argenis Reilly Rn SAMMONS, JUSTIN CALDWELL, JOSEPH A, CRNA Role Performed Record Label Intern, Third Physician leasing assistant FULL FASHIONED GARMENT KNITTER/Nurse Bread Stacker Time In 03/21/20 08:21:00 03/21/20 08:21:00 03/21/20 [...] OTHER, ATTENDEE #1 FALGUNI OLIVER, TEENA GONZALEZ, [place] RUB TECH Role Performed Student Scrub, Second Scrub, First Time In 03/21/20 08:21:00 03/21/20 08:21:00 03/21/20 08:21:00 Time Out 03/21/20 09:43:00 03/21/20 09:43:00 03/21/20 09:43:00 Procedure Discectomy Minimally Discectomy Minimally Discectomy Minimally Invasive Invasive Invasive Other Attendee PAUL GOETZ FULL FASHIONED GARMENT KNITTER STUDENT Superficial Wound Closed By: Last Modified By: Corey Castano, RN Corey Castano, RN Corey Castano, RN 03/21/20 09:43:32 03/21/20 09:43:32 03/21/20 09:43:32 Entry 10 Case Attendee KALA VELAZQUEZ MD-ANS Role Performed Anesthesiologist of Record Time In 03/21/20 08:21:00 Time Out 03/21/20 09:43:00 Procedure Discectomy Minimally Invasive Other Attendee Superficial Wound Closed By: Last Modified By: Corey Castano, RN 03/21/20 09:43:32 [facility] IntraOp Case Attendance Audit 03/21/20 09:43:32 Project Safety Manager: [email or web address] Modifier: [email or web address] 1 <+> Time Out 1 [...] <*> Procedure Discectomy Minimally Invasive 03/21/20 09:08:25 Project Safety Manager: [email or web address] Modifier: [email or web address] <+> 10 Case Attendee <+> 10 Role Performed <+> 10 Procedure 03/21/20 08:59:29 Project Safety Manager: [email or web address] Modifier: [email or web address] 1 <*> Case Attendee JAMISON WHITE MD-SNU 1 <*> Role Performed Surgeon/Proceduralist, First 1 <*> Time In 03/21/20 08:21:00 1 <*> Procedure Discectomy Minimally Invasive 2 <*> Case Attendee Corey Castano, RN 2 <*> Role Performed Record Label Intern, First 2 <*> Time In 03/21/20 08:21:00 2 <*> Procedure Discectomy Minimally Invasive 3 <*> Case Attendee 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, RN 3 <*> Role Performed Record Label Intern, Second 3 <*> Time In 03/21/20 08:21:00 3 <*> Procedure Discectomy Minimally Invasive 4 <*> Case Attendee Argenis Reilly, Rn 4 <*> Role Performed Record Label Intern, Third 4 <*> Time In 03/21/20 08:21:00 4 <*> Procedure Discectomy Minimally Invasive 5 <*> Case Attendee HILARIO DAVIDSON 5 <*> Role Performed Physician leasing assistant 5 <*> Time In 03/21/20 08:21:00 5 <*> Procedure Discectomy Minimally Invasive 6 <*> Case Attendee GLORIA SANTIAGO, FULL FASHIONED GARMENT KNITTER 6 <*> Role Performed FULL FASHIONED GARMENT KNITTER/Nurse Bread Stacker 6 <*> Time In 03/21/20 08:21:00 6 <*> Procedure Discectomy Minimally Invasive 7 <*> Case Attendee OTHER, ATTENDEE #1 7 <*> Role Performed Student 7 <*> Time In 03/21/20 08:21:00 7 <*> Procedure Discectomy Minimally Invasive 7 <*> Other Attendee PAUL GOETZ FULL FASHIONED GARMENT KNITTER STUDENT 8 <*> Case Attendee FALGUNI OLIVER ST 8 <*> Role Performed Scrub, Second 8 <*> Time In 03/21/20 08:21:00 8 <*> Procedure Discectomy Minimally Invasive 9 <*> Case Attendee TEENA LOPEZ SC RUB TECH 9 <*> Role Performed Scrub, First 9 <*> Time In 03/21/20 08:21:00 9 <*> Procedure Discectomy Minimally Invasive Entry 10 was deleted. Higher numbered entries shifted one position to fill the gap. <-> 10 Case Attendee FALGUNI OLIVER ST <-> 10 Role Performed Scrub, Second <-> 10 Time In 03/21/20 08:21:00 <-> 10 Procedure Discectomy Minimally Invasive 03/21/20 08:59:14 Project Safety Manager: [email or web address] Modifier: [email or web address] 1 <*> Procedure [...] <*> Procedure Discectomy Minimally Invasive 03/21/20 08:39:32 Project Safety Manager: [email or web address] Modifier: [email or web address] <+> 9 Case Attendee <+> 9 Role Performed <+> 9 Procedure <+> 10 Case Attendee <+> 10 Role Performed <+> 10 Procedure 03/21/20 08:25:18 Project Safety Manager: [email or web address] Modifier: [email or web address] 1 <*> Procedure [...] <*> Procedure Discectomy Minimally Invasive 03/21/20 08:24:52 Project Safety Manager: [email or web address] Modifier: [email or web address] <+> 6 Case Attendee <+> 6 Role Performed <+> 6 Procedure <+> 7 Case Attendee <+> 7 Role Performed <+> 7 Procedure <+> 7 Other Attendee <+> 8 Case Attendee <+> 8 Role Performed <+> 8 Procedure 03/21/20 08:21:37 Project Safety Manager: [email or web address] Modifier: [email or web address] 1 <+> Time In 1 <*> Procedure Discectomy Minimally Invasive 2 <+> Time In 2 <*> Procedure Discectomy Minimally Invasive 3 <+> Time In 3 <*> Procedure Discectomy Minimally Invasive 4 <+> Time In 4 <*> Procedure Discectomy Minimally Invasive 5 <+> Time In 5 <*> Procedure Discectomy Minimally Invasive 03/21/20 08:21:26 Project Safety Manager: BEATRIS Modifier: [email or web address] 1 <*> Case Attendee CINDY, CLAUDINE MEIER 1 <*> Role Performed Surgeon/Proceduralist, First 1 <+> Procedure <+> 2 Case Attendee <+> 2 Role Performed <+> 2 Procedure <+> 3 Case Attendee <+> 3 Role Performed <+> 3 Procedure <+> 4 Case Attendee <+> 4 Role Performed <+> 4 Procedure <+> 5 Case Attendee <+> 5 Role Performed <+> 5 Procedure [facility] IntraOp Case Times Entry 1 Patient In Room Time 03/21/20 08:21:00 Out Room Time 03/21/20 09:43:00 Anesthesia Start Time 03/21/20 08:21:00 Stop Time 03/21/20 09:43:00 Surgery / Procedure Times Start Time 03/21/20 08:52:00 Stop Time 03/21/20 09:33:00 Last Modified By: Corey Castano RN 03/21/20 09:43:29 [facility] IntraOp Case Times Audit 03/21/20 09:43:29 Project Safety Manager: [email or web address] Modifier: [email or web address] <+> 1 Out Room Time <+> 1 Stop Time 03/21/20 09:33:52 Project Safety Manager: [email or web address] Modifier: [email or web address] <+> 1 Stop Time 03/21/20 08:52:01 Project Safety Manager: [email or web address] Modifier: [email or web address] <+> 1 Start Time [facility] IntraOp Cautery Entry 1 Entry 2 ESU Identification Cautery Type Monopolar ESU BiPolar ESU Cautery Type Comments ID Number [id number] ID Type Hospital Number Hospital Number Cautery [...] Condition After Comment Last Modified By: Corey Castano, RN Corey Castano RN 03/21/20 09:00:29 03/21/20 09:00:29 [facility] IntraOp Communication Entry 1 Communication To Family/Significant other Comment START Communication By Corey Castano RN Date and Time 03/21/20 08:53:00 Last Modified By: Corey Castano RN 03/21/20 08:53:44 [facility] IntraOp Counts Verification Entry 1 Procedure Discectomy Minimally Invasive Count Info Count Type Sponge, Sharps, Miscellaneous Counts Verification Baseline/pre-procedure Sequence Count Results Not Applicable Counts Performed By Count Performed By FALGUNI OLIVER ST (Scrub) Count Performed By 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 RN (RN) Last Modified By: Corey Castano RN 03/21/20 08:59:41 [facility] IntraOp Counts Verification Audit 03/21/20 08:59:41 Project Safety Manager: [email or web address] Modifier: [email or web address] 1 <*> Procedure Discectomy Minimally Invasive 1 <*> Count Performed By (Scrub) TEENA LOPEZ SC RUB TECH 03/21/20 08:59:21 Project Safety Manager: [email or web address] Modifier: [email or web address] 1 <*> Procedure Discectomy Minimally Invasive 1 <*> Count Performed By (Scrub) FALGUNI OLIVER ST [facility] IntraOp Counts Final Entry 1 Procedure Discectomy Minimally Invasive Final Count Info Count Type Sponge, Sharps, Miscellaneous Counts Verification Skin Closure/end of Sequence procedure Count Results Correct, surgeon notified Counts Performed By Count Performed By TEENA LOPEZ SC RUB (Scrub) TECH Count Performed By Argenis Reilly Rn (RN) Last Modified By: Corey Castano RN 03/21/20 09:29:04 [facility] IntraOp Delays Entry 1 Delay Reason Surgeon late - did not call Duration 21 Minute(s) Last Modified By: Corey Castano RN 03/21/20 08:25:02 [facility] IntraOp Departure from OR Entry 1 Integumentary Assessment Integumentary WDL Assessment WDL Transfer/Handoff Transfer to PACU Phase I Handoff Method Bedside/Face to face, Phone call Post-op Transport Stretcher/Florentinordaja Via Patient Transport GLORIA SANTIAGO, Accompanied by RISHI, OTHER, ATTENDEE #1 Last Modified By: Corey Castano RN 03/21/20 09:02:54 [facility] IntraOp Dressing and Packing Entry 1 Type Dressing Location OP SITE Wound Dressing Item Occlusive dressing, Steristrip, Other Applied By LETY, HILARIO Other Comments MASTISOL, STERISTRIPS, COVADERM Last Modified By: Corey Castano RN 03/21/20 09:10:38 [facility] IntraOp Fire Risk Assessment Entry 1 Fire Info Surgical Site or 0- No Incision Above the Xyphoid Open O2 Source 1- Yes (Mask or Cannula) Available Ignition 1- Yes (ESU, Laser, Light Source) Fire Risk 1 Assessment Score Fire Score Fire Risk Yes Assessment Complete Fire Risk 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 wiring Verified By Fire Risk 03/21/20 08:20:00 Assessment Verified Date/Time Fire Risk Standard Fire Yes Safety Precautions Followed Last Modified By: Corey Castano RN 03/21/20 09:02:38 [facility] IntraOp General Case Paper Pattern Inspector 1 Case Information OR OR 11 [facility] Case Level 1 Room Verified Yes Wound Class I - Clean Specialty SN Neurosurgery Anesthesia Type General ASA Class 2 Diagnosis Preop Diagnosis LUMBAR RADICULOPATHY Postop Same As Preop No Postop Diagnosis SEE MD POST OP NOTE Last Modified By: Corey Castano RN 03/21/20 09:02:23 [facility] IntraOp General Case Data Audit 03/21/20 09:02:23 Project Safety Manager: BEATRIS Modifier: [email or web address] <+> 1 Preop Diagnosis [facility] IntraOp Intraoperative Assessment Entry 1 Handoff Method [...] Modified By: Corey Castano RN 03/21/20 09:03:04 [facility] IntraOp Intraoperative Equipment Entry 1 Type Equipment Equipment Equipment Yvonne Suction System ID Number [id number] Setting 200 MM HG Intraop Monitoring Electrocardiogram Five lead placement (ECG) Electrode Placement Blood Pressure Non-Invasive BP Device Source Blood Pressure Arm, right upper Location Pulse Oximeter Hand, left Probe Site Antiembolic Devices Antiembolic Devices Sequential compression device, knee high Antiembolic Device Bilateral Location Antiembolic Device [id number] ID Number Scopes Photo/Video Documentation Last Modified By: Corey Castano RN 03/21/20 09:03:35 [facility] IntraOp Medication Admin Entry 1 Entry 2 Entry 3 Medication/Irrigant Bacitracin powder lidocaine 1% w/ Neosporin 15Gm ointment 50,000 units-[id number] epinephrine 1:100,000 - [id number] 30ml vial - [id number] Combo Med List Time Administered Route of ADDED TO NS IRRIGATION LOCAL TOPICAL Administration Dose Dose 01091 20 1 Unit of Measure units ml pkt Volume Administered By JAMISON WHITE TUTT, MATTHEW PAIGE, TUTT, MATTHEW PAIGE, MD-SNU MD-SNU MD-SNU Procedure Irrigation Irrigant Volume In Irrigant Volume Out Last Modified By: Corey Castano, Corey Whitley RN Byrd, Charlie D, RN 03/21/20 09:05:18 03/21/20 09:05:18 03/21/20 09:05:18 Entry 4 Entry 5 Medication/Irrigant SPNG SURGFOAM thrombin 5000units [id number] topical powder - [id number] Combo Med List Time Administered Route of [...] 40MG, TORADOL 15MG, MARCAINE 0.25% PLAIN 30ML [facility] IntraOp Patient Positioning Entry 1 Procedure Discectomy Minimally Invasive Body Position Prone Left Arm Position Secured on padded arm board Right Arm Position Secured on padded arm board Left Leg Position Elevated Right Leg Position Elevated Feet Uncrossed Yes Pressure Points Yes Checked Positioning Devices Arm Board, Head Rest, Pad, Arm, Pillows, Safety Strap, Thighs, Ruddy Frame Positioned By JAMISON WHITE MD-SNU, Corey Castano, RONAL, 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 RN, HILARIO DAVIDSON CALDWELL, JOSEPH A, RISHI, OTHER, ATTENDEE #1 Position Verified Positioning Yes Verified by Anesthesia Positioning Yes Verified by Surgeon Last Modified By: Corey Castano RN 03/21/20 09:06:38 [facility] IntraOp Sign In Entry 1 Patient, Site, [...] Modified By: Corey Castano RN 03/21/20 09:06:55 [facility] IntraOp Sign Out Entry 1 RN Confirmation [...] Modified By: Corey Castano RN 03/21/20 09:43:41 [facility] IntraOp Sign Out Audit 03/21/20 09:43:41 Project Safety Manager: BEATRIS Modifier: [email or web address] <+> 1 RN Sign Out Signature Date/Time [facility] IntraOp Skin Prep Entry 1 Entry 2 Procedure Discectomy Minimally Discectomy Minimally Invasive Invasive Prescribed Yes Yes Pre-Surgical Prep Completed Prep Area OP SITE OP SITE Intraop Prep Integumentary WDL WDL Assessment WDL WDL Patient Exceptions Patients Normal Integumentary Variance(s) Integumentary Assessment Comment Prep Agents Alcohol, Chlorhexadine DuraPrep gluconate Prep by JAMISON WHITE WASSON, SANDRA D, RN MD-SNU Skin Prep Comment Hair Removal Methods No hair removal No hair removal performed performed Hair Removal Site Hair Removal By Rust Modified By: Corey Castano RN Byrd, Charlie D, RN 03/21/20 09:01:44 03/21/20 09:01:44 [facility] IntraOp Surgical Procedures Entry 1 Procedure Discectomy Minimally Invasive Additional MIS L4-5 DISCECTOMY Procedure WITH LAMINECTOMY) Description Primary Procedure Yes Primary Surgeon JAMISON WHITE MD-SNU Start 03/21/20 08:52:00 Stop 03/21/20 09:33:00 Anesthesia Type General Specialty SN Neurosurgery Wound Class I - Clean Last Modified By: Corey Castano RN 03/21/20 09:33:55 [facility] IntraOp Surgical Procedures Audit 03/21/20 09:33:55 Project Safety Manager: [email or web address] Modifier: [email or web address] <+> 1 Stop 03/21/20 09:24:57 Project Safety Manager: [email or web address] Modifier: [email or web address] 1 <*> Procedure Discectomy Minimally Invasive 1 <*> Additional Procedure Description MIS L4-5 DISCECTOMY POSS LAMINECTOMY) [facility] IntraOp Temp Regulation Devices Entry 1 Temp Regulation Temperature Forced Air Warming Regulation Device device, Warm blankets Temperature 46035 Regulation Device Serial/Unit Number Temperature Upper body Regulation Site Temperature Device 43 C Setting Temperature GLORIA SANTIAGO CRNA Regulation Device Applied by Rust Modified By: Corey Castano RN 03/21/20 09:00:48 [facility] IntraOP Time Out Entry 1 Procedure to [...] Modified By: Corey Castano RN 03/21/20 08:52:37 [facility] IntraOp X-Ray and Images Entry 1 X-Ray/Imaging Type Fluoroscopy Fluoroscopy Type C-Arm Site OP SITE Traveling Secretary Name Liz Williamson, [employer] Teacher Last Modified By: Corey Castano RN 03/21/20 08:53:59 Case Comments <None> Finalized By: IVNCE PALM Document Signatures Signed By: Corey Castano RN 03/21/20 13:05 Corey Castano RN 03/21/20 09:43 VINCE PALM 03/23/20 10:19 Unfinalized History Date/Time Username Reason for Unfinalizing Freetext Reason for Unfinalizing 03/21/20 13:04 SMOOTH Correct Documentation 2 03/23/20 10:19 SHANTA Correct Billing Electronically signed by Tamy [facility] Conversion Card Folder Cerner at 07/09/2022 4:53 PM CDT documented in this encounter Plan of Treatment Not on file documented as of this encounter Visit Diagnoses Not on filedocumented in this encounter
--- OUTSIDE RECORDS SUMMARY | 2024-10-21 11:30 | XMS_ITS | Encounter Summary ---
Author Organization [employer] ([place], [place], [place], [place]) Address [address] [place] [address] Care Team Providers Care Supervisor Porcelain Department Name Role Phone Unavailable Primary Care Provider Unavailabl e Encounter Details Date Type Department Care Team (Late st Contact Info) Description 03/21/[address] [facility] Family Medicine [facility] [place] [address] ProviderMilad MD [address] [place], [place] [phone] Social History Tobacco Use Types Packs/Day Years [...] Milad Becerra MD - 03/21/2020 11:03 AM HUB CUTTER APPRENTICE Patient Education Materials Follows: Outpatient Surgery, Adult, [...] and water are not available, use hand central supply technician. ? Change your dressing as told by [...] or a bad smell. Medicines ??? Take ybxq-agf-yqsraee and prescription medicines only as told by [...] 06/30/2016 Document Revised: 06/08/2018 Document Reviewed: 06/30/2016 [email or web address] Patient Education ? 2020 [employer] documented in this encounter Plan of Treatment Not on file documented as of this encounter Visit Diagnoses Not on filedocumented in this encounter
--- OUTSIDE RECORDS SUMMARY | 2024-10-21 11:30 | XMS_ITS | Encounter Summary ---
Author Organization [employer] ([place], [place], [place], [place]) Address [address] [place] [address] Care Team Providers Care Banking Consultant Name Role Phone Unavailable Primary Care Provider Unavailabl e Encounter Details Date Type Department Care Team (Late st Contact Info) Description 03/21/2020 Transcribed Document [facility] [place] [address] ProviderMilad MD [address] [place] [address] Social History Tobacco Use Types [...] - Historical ProviderMD - 03/21/2020 11:07 AM SERVICE PLUMBER [facility] [place] [address] LORETTA NOVOA :1960 Visit Time:03/21/2020 What [...] Comments Appointment has been made Where: [address] (FRIDAY ONLY) [place] [phone]- Business (1) Medications What How Much When Instructions [...] and water are not available, use hand print graphic designer. ? Change your dressing as told by [...] or a bad smell. Medicines ??? Take cqla-pur-idohbnu and prescription medicines only as told by [...] 06/30/2016 Document Revised: 06/08/2018 Document Reviewed: 06/30/2016 [employer] Patient Education ?? 2020 [employer]. Emergency Awareness and Preventative Care STROKE is [...] Assistance with quitting is available by contacting 0-738-YTNUAfraxisNOW. This is a free resource providing counseling, [...] range between ( 0.0 and 7.0 ) [place] #: 0.77 K/uL -- Normal range between ( 0.16 and 1.00 ) Eos #: 0.21 x10(3)/uL -- Normal range between ( 0.00 and 0.80 ) [place] %: 10.0 % -- Normal range between [...] was given the opportunity to ask questions. Patient/Biomedical Service Engineer Name: Patient/Biomedical Service Engineer Signature: Relationship to Patient: Clinician/Hospital Biomedical Service Engineer Signature: Date: Electronically signed by Interface, [facility] Conversion Preform Machine Operator Cerner at 07/09/2022 4:30 PM CDT documented in this encounter Plan of Treatment Not on file documented as of this encounter Visit Diagnoses Not on filedocumented in this encounter
--- OUTSIDE RECORDS SUMMARY | 2024-10-21 11:30 | XMS_ITS | Clinical Summary ---
Author Organization [employer] ([place], [place], [place], [place]) Address [address] [place] [address] Care Team Providers Care Accountancy Professor Name Role Phone Unavailable Primary Care Provider [...]
--- OUTSIDE RECORDS SUMMARY | 2024-10-21 11:30 | XMS_ITS | Encounter Summary ---
Author Organization [employer] ([place], [place], [place], [place]) Address [address] [place] [address] Care Team Providers Care Glass Deposition Tender Name Role Phone Unavailable Primary Care Provider Unavailabl e Encounter Details Date Type Department Care Team (Late st Contact Info) Description 03/21/2020 Transcribed Document [facility] [address] [facility] [address] [place] [phone] Sinan Caballero MD [address] [place] [address] Social History Tobacco Use Types Packs/Day Years [...] microdiskectomy. 2. Minimally invasive laminectomy at L4-5. HARDWOOD FLOORING SPECIALIST: Sridhar Aguirre. TYPE OF ANESTHESIA: GEA. DESCRIPTION [...] LOSS: 25 mL. DRAINS: None. COMPLICATIONS: None. /[id number] MD HUSSEIN Arredondo/AQ / MPT / MODL /[id number] CC: Santiago Mckeon MD documented in this encounter Plan of Treatment Not on file documented as of this encounter Visit Diagnoses Not on filedocumented in this encounter
--- OUTSIDE RECORDS SUMMARY | 2024-10-21 11:30 | XMS_ITS | Encounter Summary ---
Author Organization [employer] ([place], [place], [place], [place]) Address [address] [place] [address] Care Team Providers Care Tomato Paste Maker Name Role Phone Unavailable Primary Care Provider Unavailabl e Encounter Details Date Type Department Care Team (Late st Contact Info) Description 03/21/2020 Transcribed Document [facility] [place] [place] [address] ProviderMilad MD [address] [place], [place] [phone] Social History Tobacco Use Types Packs/Day Years [...] - Historical ProviderMD - 03/21/2020 8:00 AM MIXER PIGMENT [facility] Main OR Preop Summary Primary Physician: JAMISON WHITE MD-SANTINO Finalized Date/Time: 03/21/20 08:22:20 Pt. Name: LORETTA NOVOA /Sex: 1960 Female Med Rec #: [id number] Physician: JAMISON WHITE MD-SANTINO Financial #: [id number] Pt. Type: O Room/Bed: Admit/Disch: 03/21/20 06:21:00 - Institution: [facility] PreOp Case Times Entry 1 In Preop 03/21/20 06:38:00 Ready for Holding n/a Room Patient Ready for 03/21/20 08:15:00 Surgery Patient Out of Preop 03/21/20 08:17:00 Patient Out of n/a Holding Room Last Modified By: Yousif May Rn 03/21/20 08:22:10 Finalized By: Yousif May Rn Document Signatures Signed By: Yousif May Rn 03/21/20 08:22 Electronically signed by Tamy [facility] Conversion Jet Handler Cerner at 07/09/2022 4:40 PM CDT documented in this encounter Plan of Treatment Not on file documented as of this encounter Visit Diagnoses Not on filedocumented in this encounter
--- OUTSIDE RECORDS SUMMARY | 2024-10-21 11:30 | XMS_ITS | Encounter Summary ---
Author Organization [employer] ([place], [place], [place], [place]) Address [address] [place] [address] Care Team Providers Care Director Industrial Name Role Phone Unavailable Primary Care Provider Unavailabl e Encounter Details Date Type Department Care Team (Late st Contact Info) Description 03/21/2020 Transcribed Document [facility] [address] [facility] [address] [place] [address] Sinan Caballero MD [address] [place] [address] Social History Tobacco Use Types Packs/Day Years [...] pain Primary Care Provider OLAYINKA WASHINGTON ([facility] History of Present Illness 59F initially evaluated [...]
--- OUTSIDE RECORDS SUMMARY | 2024-10-21 11:30 | XMS_ITS | Encounter Summary ---
Author Organization [employer] ([place], [place], [place], [place]) Address [address] [place] [address] Care Team Providers Care Improvement Rn Name Role Phone Unavailable Primary Care Provider Unavailabl e Encounter Details Date Type Department Care Team (Late st Contact Info) Description 03/21/2020 Transcribed Document [facility] [place] [address] ProviderMilad MD [address] [place], [place] [id number] Social History Tobacco Use Types Packs/Day Years Used Date Smoking Tobacco: Never Assessed Comments Unknown Sex and Gender Information Value Date Recorded Sex Assigned at Female 09/18/2021 7:23 PM CDT Legal Sex Female 7:23 PM CDT Gender Identity Female 09/18/2021 7:23 PM CDT Sexual Orientation Not on file documented as of this encounter Miscellaneous Notes * Cerner Conversion Note - Milad ProviderMD - 03/21/2020 8:52 AM HOSPICE ADMITTING CLERK [facility] Main OR PACU Summary Primary Physician: JAMISON WHITE MD-SNU Finalized Date/Time: 03/21/20 10:41:51 Pt. Name: LORETTA NOVOA /Sex: 1960 Female Med Rec #: [id number] Physician: JAMISON WHITE MD-SNU Financial #: [id number] Pt. Type: O Room/Bed: Admit/Disch: 03/21/20 06:21:00 - Institution: [facility] Main OR PACU I Case Times Entry 1 In PACU I 03/21/20 09:45:00 Ready for PACU 03/21/20 10:40:00 Discharge Discharge from PACU 03/21/20 10:40:00 I Last Modified By: AR MICHEL RN 03/21/20 10:41:37 Finalized By: AR MICHEL, RN Document Signatures Signed By: AR MICHEL RN 03/21/20 10:41 Electronically signed by aTmy [facility] Conversion Cloth Doubling Machine Operator Cerner at 07/09/2022 4:31 PM CDT documented in this encounter Plan of Treatment Not on file documented as of this encounter Visit Diagnoses Not on filedocumented in this encounter
--- OUTSIDE RECORDS SUMMARY | 2024-10-21 11:30 | XMS_ITS | Encounter Summary ---
Author Organization [employer] ([place], [place], [place], [place]) Address [address] [place] [address] Care Team Providers Care Creel Operator Name Role Phone Unavailable Primary Care Provider Unavailabl e Encounter Details Date Type Department Care Team (Late st Contact Info) Description 03/21/2020 Transcribed Document [facility] [place] [facility] [place] [address] ProviderMilad MD [address] [place] [phone] Social History Tobacco Use Types Packs/Day Years [...] - Historical ProviderMD - 03/21/2020 8:52 AM BUSHER HELPER [facility] Main OR PostOp Summary Primary Physician: JAMISON WHITE MD-SANTINO Finalized Date/Time: 03/21/20 12:04:37 Pt. Name: LORETTA NOVOA /Sex: 1960 Female Med Rec #: [id number] Physician: JAMISON WHITE MD-SNU Financial #: [id number] Pt. Type: O Room/Bed: Admit/Disch: 03/21/20 06:21:00 - Institution: [facility] Main OR PostOp Case Times Entry 1 In PACU II 03/21/20 10:35:00 Ready for PACU II 12/29/20 10:50:00 Discharge Discharge from PACU 03/21/20 11:00:00 II Last Modified By: DMITRI GRULLON RN 03/21/20 12:04:34 Finalized By: DMITRI GRULLON, RN Document Signatures Signed By: DMITRI GRULLON RN 03/21/20 12:04 Electronically signed by Tamy [facility] Conversion Human Factors Advisor Lead Cerner at 07/09/2022 4:31 PM CDT documented in this encounter Plan of Treatment Not on file documented as of this encounter Visit Diagnoses Not on filedocumented in this encounter
--- OUTSIDE RECORDS SUMMARY | 2024-10-21 11:30 | XMS_ITS | Patient Health Record ---
Author Organization [facility] Address [address] [place] [address] Care Team Providers Care Interpreter For The Deaf Name Role Phone Santiago Mckeon Primary Care Provider [phone] Lidia Gabriel Unavailable [phone] Migration, Provider Unavailable Unavailable Allergies Allergen (clinical drug ingredient) Drug/Non Drug Allergy documented on EMR Reaction Allergy Type Onset Date Status meloxicam Meloxicam angioedema Drug Allergy Active diclofenac Diclofenac hives Drug Allergy Activ e Results Component Value Reference Range Notes COMPREHENSIVE METABOLIC PANE L (80367) Reviewed date:09/08/2024 04:53:00 PM Interpretation: Performing Lab:CB, [facility] Fzcs[address] [facility], [facility] MinneapolisLudpFV[address] Nj Tillman Notes/Report: NON-FASTING; NON-FASTING; NON-FASTING; NON-FASTING; [...] 27 10-35 U/L ALT 24 6-29 U/L VITAMIN D,25-OH,TOTAL,IA (17 306) Reviewed date:09/08/2024 04:53:01 PM Interpretation: Performing Lab:F[facility]IAN [facility], [place]igcCO[address] Nj Tillman Notes/Report: NON-FASTING; NON-FASTING; NON-FASTING; NON-FASTING; [...] D, (D2,D3), LC/MS/MS is recommended: order code 49659 (patients >2yrs). See Note 1 Note 1 For additional information, please refer to http://education.tolingo/faq/PBQ849 (This link is being provided for informational/ educational purposes only.) TSH W/REFLEX TO FT4 (42892) Reviewed date:09/08/2024 04:53:01 PM Interpretation: Performing Lab:FABIAN [facility], [place]peGvncRA[address] Nj Tillman Notes/Report: NON-FASTING; NON-FASTING; NON-FASTING; NON-FASTING; NON-FAST TSH W/REFLEX TO FT4 0.98 0.40-4.50 mIU/L CBC (INCLUDES DIFF/PLT) (639 9) Reviewed date:09/08/2024 04:53:00 PM Interpretation: Performing Lab:CB, [facility] [address], [facility] HospitalErhzQL[address] Nj Tillman Notes/Report: NON-FASTING; NON-FASTING; NON-FASTING; NON-FASTING; [...] MPV 11.0 7.5-12.5 fL ABSOLUTE NEUTROPHILS 9835 7716-3464 cells/uL ABSOLUTE LYMPHOCYTES 3211 850-3900 cells/uL ABSOLUTE MONOCYTES 1166 200-950 cells/uL ABSOLUTE EOSINOPHILS 144 15-500 cells/uL ABSOLUTE BASOPHILS 43 0-200 cells/uL NEUTROPHILS 68.3 LYMPHOCYTES 22.3 MONOCYTES 8.1 EOSINOPHILS 1.0 BASOPHILS 0.3 X ray : Spines, Lumbosacral Reviewed date:09/08/2024 04:53:01 PM Interpretation: Performing Lab: Notes/Report: X ray : Spines, Lumbosacral Reviewed date:09/08/2024 04:53:01 PM Interpretation: Performing Lab: Notes/Report: CT Scan : Chest, Lung Cancer Screening Reviewed date:05/13/2024 10:35:25 AM Interpretation: Performing Lab: Notes/Report: DEXA Hip and Spine - Screeni ng Reviewed date:04/23/2024 09:41:35 AM Interpretation: Performing Lab: Notes/Report: LIPID PANEL, STANDARD (7600) Reviewed date:04/23/2024 02:23:08 PM Interpretation: Performing Lab:[facility] [address], [facility] HospitalScxsJB[address] Nj Tillman Notes/Report: FASTING: YES FASTING:YES NON-FASTING; NON-FASTING; NON-FASTING; NON-FASTING; NON-FAST CHOLESTEROL, TOTAL 202 <200 mg/dL HDL CHOLESTEROL 91 > OR = 50 mg/dL TRIGLYCERIDES 98 <150 mg/dL LDL-CHOLESTEROL 92 Reference range: <100 Desirable range <100 mg/dL for primary prevention; <70 mg/dL for patients with CHD or diabetic patients with > or = 2 CHD risk factors. LDL-C is now calculated using the Geovany-Herron calculation, which is a validated novel method providing better accuracy than the Friedewald equation in the estimation of LDL-C. Geovany SS et al. JEFFRY. 2013;310(19): 9192-7888 (http://BlueVox.Voodoo Taco/faq/UDN382) CHOL/HDLC RATIO 2.2 <5.0 (calc) NON HDL CHOLESTEROL 111 <130 mg/dL (calc) For patients with diabetes plus 1 major ASCVD risk factor, treating to a non-HDL-C goal of <100 mg/dL (LDL-C of <70 mg/dL) is considered a therapeutic option. COMPREHENSIVE METABOLIC JASON Siu (01542) Reviewed date:04/23/2024 02:23:09 PM Interpretation: Performing Lab:CB, [facility] Villanuevae[address] [facility] Cent[facility]el Blsi[facility]ara, Frederick CaldwellYeugMV[address] Nj Tillman Notes/Report: NON-FASTING; NON-FASTING; NON-FASTING; NON-FASTING; [...] Reviewed date:04/23/2024 02:23:09 PM Interpretation: Performing Lab:[facility] Nfac[address], [place]peMyszVD[address] Nj Tillman Notes/Report: NON-FASTING; NON-FASTING; NON-FASTING; NON-FASTING; [...] MPV 10.9 7.5-12.5 fL ABSOLUTE NEUTROPHILS 4000 4534-1209 cells/uL ABSOLUTE LYMPHOCYTES 2343 850-3900 cells/uL ABSOLUTE MONOCYTES 723 200-950 cells/uL ABSOLUTE EOSINOPHILS 183 15-500 cells/uL ABSOLUTE BASOPHILS 51 0-200 cells/uL NEUTROPHILS 54.8 LYMPHOCYTES 32.1 MONOCYTES 9.9 EOSINOPHILS 2.5 BASOPHILS 0.7 HEMOGLOBIN A1c (496) Reviewed date:04/23/2024 02:23:09 PM Interpretation: Performing Lab:[facility] Xxwy[address], [place] ApeHnxdAW[address] Nj Tillman Notes/Report: NON-FASTING; NON-FASTING; NON-FASTING; NON-FASTING; [...] diagnosis of diabetes in children. According to [place] Diabetes Association (ADA) guidelines, hemoglobin A1c <7.0% represents optimal control in non- diabetic patients. Different metrics may apply to specific patient populations. Standards of Medical Care in Diabetes(ADA). VITAMIN B12 (927) Reviewed date:09/08/2024 04:53:01 PM Interpretation: Performing Lab:FABIAN [facility]-SYLOBe[address], [place] ApeKxmnVE[address] Nj Tillman Notes/Report: NON-FASTING; NON-FASTING; NON-FASTING; NON-FASTING; NON-FAST VITAMIN B12 919 266-3366 pg/mL TSH W/REFLEX TO FT4 (57094) Reviewed date:04/23/2024 02:23:09 PM Interpretation: Performing Lab:[facility] Nzeq8768 [address] BlBaitians[address], [place] ApeTosaPW[address] Nj Tillman Notes/Report: NON-FASTING; NON-FASTING; NON-FASTING; NON-FASTING; NON-FAST FASTING:YES FASTING: YES TSH W/REFLEX TO FT4 1.67 0.40-4.50 mIU/L Medications Medication SIG (Take, Route, Frequency, Duration) Notes Start Date End Date Status Methocarbamol 500 MG as directed Orally every 8 hours; Duration: 30 days Take 1-2 tablets every 8 hours as needed muscle spasm. 08/13/2024 Active Atorvastatin Calcium 40 MG 1 tab(s) oral ly once a day; Duration: 90 days Active Alendronate Sodium 70 MG 1 tab(s) orally once a week; Duration: 90 days Active Venlafaxine HCl ER 150 MG 1 cap(s) orall y once a day; Duration: 90 days Active Immunizations Vaccine Route Administration [...] Problem Status W/U Status Risk Notes Problem Mixed hyperlipidemia (488685435) Mixed hyperlipidemia (E78.2) Active confirmed Problem Generalized anxiety disorder (88101855) Generalized anxiety disorder (F41.1) Active confirmed Problem Chronic pain (86279978) Other chronic pain (G89.29) Active confirmed Problem Seasonal allergic rhinitis (484974963) Other seasonal allergic rhinitis (J30.2) Active confirmed Problem Allergic rhinitis (39291531) Other allergic rhinitis (J30.89) Active confirmed Problem Centrilobular emphysema (75346480) Centrilobular emphysema (J43.2) Active confirmed Problem Sciatica (46208664) Lumbago with sciatica, right side (M54.41) Active confirmed Problem Sciatica (00911254) Lumbago with sciatica, left side (M54.42) Active confirmed Problem Nicotine dependence (90590126) Personal history of nicotine dependence (Z87.891) Active confirmed Problem Vitamin D deficiency (45615333) Vitamin D deficiency (E55.9) Active confirmed Problem Tobacco use (831166738) Tobacco use disorder (Z72.0) Active confirmed Problem Insomnia (631838136) Insomnia (G47.00) Active confirmed Problem Hyperlipidemia (02327140) Hyperlipemia, idiopathic familial (E78.5) Active confirmed Problem Multiple nodules of lung (287701516) Lung nodules (R91.8) Active confirmed Problem Osteoarthritis of knee (033247383) Primary osteoarthritis of both knees (M17.0) Active confirmed Problem Abnormal mammogram (335266293) Abnormal mammogram (R92.8) Active confirmed Problem Sciatica (07140909) Right sciatic nerve pain (M54.31) Active confirmed Problem Atrophic vaginitis (48074629) Atrophic vaginitis (N95.2) Active confirmed Problem Chronic obstructive lung disease (85559758) COPD without exacerbation (J44.9) Active confirmed Problem Menopausal flushing (122265481) Hot flash, menopausal (N95.1) Active confirmed Problem Hot flashes (171202211) Hot flashes (R23.2) Active confirmed Problem Menopause (433429114) Vasomotor symptoms due to menopause (N95.1) Active confirmed Problem Polyneuropathy (47106988) Other polyneuropathy (G62.89) Active confirmed Vital Signs Heart Rate 78 /min 08/13/2024 Temperature 98 degrees Fahrenheit 08/13/2024 Blood pressure diastolic 82 mm Hg 08/13/2024 Height 5 ft 5 in in 08/13/2024 Blood pressure systolic 142 mm Hg 08/13/2024 Weight 148 lbs 08/13/2024 BMI 24.63 kg/m2 08/13/2024 Encounters Encounter Location Date Provider Diagnosis [facility] [address] [address] 06/26/2024 Provider Migration Hot flashes R23.2 ; Muscle strain T14.8XXA ; Other specified disorders of bone density and structure, right thigh M85.851 and Mixed hyperlipidemia E78.2 [facility] [address] [place] [address] 09/02/2024 Lidia Gabriel [facility] [address] [phone] 04/13/2024 Lidia Gabriel Muscle strain T14.8X XA [...] cancer Z12.2 and Encounter for immunization Z23 [facility] [address] [address] 08/13/2024 Lidia Gabriel Lumbago with sciatic a, right side M54.41 ; Lumbago with sciatica, left side M54.42 ; Other polyneuropathy G62.89 ; B12 deficiency E53.8 and Vitamin D deficiency E55.9 [facility] [address] [place] [address] 04/14/2024 Lidia Gabriel Asymptomatic postmenopausal state Z78.0 [facility] [address] [place] [address] 04/19/2024 Lidia Gabriel History of nicotine dependence Z87.891 [facility] [address] [facility] [address] [place] [address] 05/13/2024 Santiago Mckeon Pulmonary cavitary lesion J98.4 [facility] [address] [facility] [address] [place] [address] 08/17/2024 Lidia Gabriel Lumbago with sciatic a, right side M54.41 Assessments Encounter Date Diagnosis (ICD Code) Assessment Notes Treatment Notes Treatment Clinical Notes Section Notes 04/19/2024 History of nicotine dependence (ICD-10 - [...] with sciatica, right side (ICD-10 - M54.41) 04/14/2024 Asymptomatic postmenopausal state (ICD-10 - Z78.0) 04/13/2024 Hot flashes (ICD-10 - R23.2) Will [...] with the plan of care above. 08/13/2024 Other polyneuropathy (ICD-10 - G62.89) I personally will review all labs once final. 04/13/2024 Personal history of nicotine dependence (ICD-10 - Z87.891) Cessation discussed, precontemplative. 08/13/2024 B12 deficiency (ICD-10 - E53.8) I personally will review all labs once final. 04/13/2024 Generalized anxiety disorder (ICD-10 - F41.1) I personally will review all labs once final. Well controlled on Venlafaxine so will continue. 04/13/2024 Other specified disorders of bone density and structure, right thigh (ICD-10 - M85.851) Continue alendronate and discussed taking with a tall glass of water. 06/26/2024 Other specified disorders of bone density [...] Treatment Pending Test Test Name Order Date Mammogram : Left breast 05/04/2019 Physical Therapy 04/28/2018 Physical Therapy 06/09/2017 Physical Therapy 02/09/2013 CT Scan : Chest, With & Without Contrast 09/28/2018 M-Complete Blood Count Auto Diff 022 M-Comprehensive Metabolic Panel 06/28/19 22 M-Lipid Panel 06/27/2021 M-Vitamin B12 01/26/2022 M-Vitamin D 25 Hydroxy 01/26/2022 M-Vitamin D 25 Hydroxy 06/27/2021 Physical Therapy Eval and Treat 08/18/19 25 Future Test Test Name Order Date C-VITAMIN B12 03/10/2013 C-VITAMIN D, 25-HYDROXY 03/10/2013 Insurance Providers Payer Name Payer Address Payer Phone Subscriber Number Group Number Insured Name Patient Relationship to Insured Coverage Start Date Coverage End Date [facility] [id number] [place] [address] [id number] Jennifer Novoa Self - patient is [...]
--- OUTSIDE RECORDS SUMMARY | 2024-10-21 11:30 | XMS_ITS | Referral Summary ---
Author Organization [employer] ([place], [place], [place], [place]) Address [address] [place] [address] Care Team Providers Care Supervisor Special Services Name Role Phone Unavailable Primary Care [...]
--- OUTSIDE RECORDS SUMMARY | 2024-10-21 11:30 | XMS_ITS | Encounter Summary ---
Author Organization [employer] ([place], [place], [place], [place]) Address [address] [place] [address] Care Team Providers Care Senior Sql Server Dba Name Role Phone Unavailable Primary Care Provider Unavailabl e Encounter Details Date Type Department Care Team (Late st Contact Info) Description 03/20/2020 Transcribed Document [facility] [place] [facility] [place] [address] ProviderMilad MD [address] [place] [address] Social History Tobacco Use Types [...] - Historical ProviderMD - 03/20/2020 2:16 PM HEALTHCARE ADMINISTRATION INTERN PAT Adult Entered On: 03/20/2020 14:20 EST [...] Body Mass Index : 25.8 kg/m2 (HI) [place] Body Weight : 57 kg Yousif May [...] : No TUTU BELL 03/20/2020 14:16 EST [place] Suicide Severity Rating Scale (C-SSRS) CSSRS Past [...] Olivo Name/Contact Info Physician Notified Adm : [phone] Yousif May Rn - 03/21/2020 8:15 EST Mode of Arrival on Unit : Ambulatory Legal Guardian : Unaccompanied Support Person/Pt Rep Contact Information : so [address] olivo [phone] TUTU BELL - 03/20/2020 14:16 EST Want Family/Rep/Phys Notified of Admit : Yes Yousif May Rn - 03/21/2020 8:15 EST Emergency Contact #1 : - Emergency Contact #1 Phone Number : - Emergency Contact #1 Relationship : - Emergency Contact #2 : - Emergency Contact #2 Phone Number : - Emergency Contact #2 Relationship : - Chief Complaint : - Primary Language : Uruguayan Communication Barrier : None Supervisory Training Specialist Needed : No TUTU BELL - 03/20/2020 [...]
--- OUTSIDE RECORDS SUMMARY | 2024-10-21 11:30 | XMS_ITS | Encounter Summary ---
Author Organization [employer] ([place], [place], [place], [place]) Address [address] [place] [address] Care Team Providers Care Underground Truck Operator Name Role Phone Unavailable Primary Care Provider Unavailabl e Encounter Details Date Type Department Care Team (Late st Contact Info) Description 03/21/2020 Transcribed Document [facility] [place] [facility] [place] [address] ProviderMilad MD [address] [place] [address] Social History Tobacco Use Types [...] - Historical ProviderMD - 03/21/2020 11:08 AM SKILLED NURSING FACILITY COUNSELOR [facility] [place] [address] LORETTA NOVOA :1960 Visit Time:03/21/2020 What [...] Comments Appointment has been made Where: [address] (FRIDAY ONLY) [place] [phone] Business (1) Medications What How Much When [...] and water are not available, use hand housecalls nurse. ? Change your dressing as told by [...] or a bad smell. Medicines ??? Take mpim-utr-oddnlrn and prescription medicines only as told by [...] 06/30/2016 Document Revised: 06/08/2018 Document Reviewed: 06/30/2016 ElseSelf Point Patient Education ?? 2020 [employer]. Emergency Awareness and Preventative Care STROKE is [...] Assistance with quitting is available by contacting 8-906-KFRFHealth Benefits DirectNOW. This is a free resource providing counseling, [...] range between ( 0.0 and 7.0 ) [place] #: 0.77 K/uL -- Normal range between ( 0.16 and 1.00 ) Eos #: 0.21 x10(3)/uL -- Normal range between ( 0.00 and 0.80 ) [place] %: 10.0 % -- Normal range between [...] was given the opportunity to ask questions. Patient/Flex O Writer Operator Name: Patient/Flex O Writer Operator Signature: Relationship to Patient: Clinician/Hospital Flex O Writer Operator Signature: Date: Electronically signed by Interface, [facility] Conversion Display Artist Cerner at 07/09/2022 4:34 PM CDT documented in this encounter Plan of Treatment Not on file documented as of this encounter Visit Diagnoses Not on filedocumented in this encounter
--- NOTE | 2024-10-21 11:32 | EXP.PAIN.SOA ---
[facility] Disclaimer: The information contained in this section may have been updated after the patient was seen, as this information can be updated by other users. 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 current occupational exposures/hazards: No caffeine: Yes Have you lived/traveled outside US in past 30 days?: No Contact w/someone who lives/traveled outside US past 30 days?: No Exposure to someone with infectious disease in past 14 days?: No Do you have a fever (greater than 100.4 F or 38 C)?: No Have you tested positive for COVID-19?: No Exposed to someone with COVID-19 in past 14 days?: No Do you have a sore throat?: No Do you have a cough?: No Do you have any weakness?: No Do you have any diarrhea?: No Are you experiencing any unusual bleeding?: No Do you have any muscle aches/pain?: No Do you have any abdominal pain?: No Are you experiencing loss of taste or smell?: No PM Subjective & Objective Subjective Subjective:: Patient is a pleasant 64-year-old female who presents today for follow-up of her lumbar epidural steroid injection L5-S1 on 10/05/2024. Today she rates her pain a 0 out of 10 while sitting but will with increased activity or walking goes to a 7. Patient does state that it did help about 2 days but felt like it is already worn off. She also states that it did not provide a significant relief that she has gotten in the past. Patient is only rating about 20% improvement. At our last visit the patient was ordered compounded cream. She is currently doing physical therapy however states that she has not really noticed any improvement with this. Patient was previously denied an updated MRI due to not having recent physical therapy. Her Tony has been reviewed and is appropriate. Review of Systems: General: No recent weight changes, no fever, no sleep disturbances Respiratory: No cough, no shortness of air, no recurring pulmonary infections Cardiovascular/peripheral vascular: No chest pain, no palpitations, no edema, no shortness of breath Gastrointestinal: No new onset incontinence, normal bowel movements reported Genitourinary: No new onset incontinence Musculoskeletal: Low back pain Psychiatric: [Normal mood/affect] Neurological: [Denies weakness in extremities], [denies balance issues] Pain at rest (0-10 scale): 7 Objective Objective:: Physical Exam: General: Alert and oriented x3, no acute distress, pleasant and cooperative Lungs: Respirations even and unlabored, symmetrical chest expansion Eyes: PERRL Musculoskeletal: Flexion and extension of lumbar [spine] somewhat guarded secondary to pain, [antalgic gait noted] Neurological: Speech clear, no gross sensory deficit Has patient had previous pain injection?: Yes Percent improvement in pain since last injection: 20% Conservative treatment options previously tried: Home exercise plan Length of treatment: Longer than 12 weeks Meds Home Medications and Allergies Home Medications ?Medication ?Instructions ?Recorded ?Confirmed ?Type atorvastatin 40 mg tablet 40 mg PO HS Cholesterol 12/24/19 10/05/24 History ergocalciferol (vitamin D2) 1,250 1,250 mcg PO WEEKLY 10/22/22 10/05/24 History mcg (50,000 unit) capsule valacyclovir 1 gram tablet 1,000 mg PO Q8H #21 tabs 10/22/22 10/05/24 Rx venlafaxine 75 mg capsule,extended 150 mg PO DAILY hot flashes 10/22/22 10/05/24 History release 24 hr New Prescriptions to Start Prescriptions: Allergies Allergy/AdvReac Type Severity Reaction Status Date / Time meloxicam (MELOXICAM) Allergy Unknown Verified 10/24/22 14:35 Assessment and Plan *Assessment and plan (1) Degenerative disc disease: Status: Acute Category: Medical (2) Lumbar radiculopathy: Status: Chronic Category: Medical Code(s): M54.16 - Radiculopathy, lumbar region Plan I did discuss with the patient that unfortunately we were not able to go to the level that her x-ray imaging showed the most advanced changes of L4-L5. The provider who did her injection did have it noted that he was unable to get the Touhy needle in place. Patient was counseled that sometimes time can make a difference however the plan would be that we would proceed forward with advanced imaging after she completes a little bit more of her physical therapy. I will send in a 2-week dose of baclofen 10 mg 3 times daily. Patient will return to clinic in 1 month. Patient has been instructed to contact the clinic with any concerns before the next appointment. Dr. Cristobal has reviewed this note and agrees with this plan of care. This note was dictated using voice recognition software and make contain errors or omissions. All injections are used with Lidocaine, Bupivacaine and dexamethasone. Occasionally urine drug screen is needed to verify patient's compliance with our office pain contract. This is ordered based off specific treatments related to chronic pain with the potential to abuse certain medications.
[2024-10-21 11:58] VITALS: BP 140/78; PULSE 77; RESP 14; O2SAT 100; BMI 25.7
== END 2024-10-21 23:59 | disposition home or self-care (01) ==
PROVIDERS: PCP Internal Medicine Adolescent Medicine; Visit Provider Nurse Practitioner Family
DX: M54.16 Radiculopathy, lumbar region (principal)
CPT/HCPCS: 99212; G0463

== ENCOUNTER 2024-10-25 16:57 | Outpatient (RCR) | payer BC, SELFPAY | END 2024-10-25 23:59 | disposition home or self-care (01) | LOC: PT 16:57 | PROVIDERS: PCP Internal Medicine Adolescent Medicine; Visit Provider Physician Assistant | DX: M54.41 Lumbago with sciatica, right side (principal) ==

== ENCOUNTER 2024-10-25 17:12 | Emergency (ER) | payer BC, SELFPAY ==
--- OUTSIDE RECORDS SUMMARY | 2024-09-02 11:00 | XMS_ITS ---
Author Organization [facility] Address [address] [facility] [address] [place] [address] Care Team Providers Care Internet Marketing Assistant Name Role Phone Santiago Mckeon Primary Care Provider Lidia Gabriel Unavailable [phone] REASON FOR VISIT Labs Encounters Encounter Location Date Provider Diagnosis [facility] [address] [place] [address] 09/02/2024 Lidia Gabriel Plan Of Treatment Next Appt Details Provider Name:Lidia L Brittarchie ce, 10/26/2024 02:15:00 PM, [address], [address], [place], [address], Progress Notes * Jennifer NOVOAOB:[birth year] (64 yo F)Acc No.[id number]:09/02/2024 LABS Patient: Jennifer JACOBSON Provider: LAYLA Shelby :1960 A ge:63 Y S ex:Female Date:09/02/2024 Address:[address], [place] Pcp:Santiago Mckeon Subjective: * Chief Complaints: * 1 . Labs. * Medical History: Objective: * Vitals: Assessment: Plan: * Treatment: * * Electronic signature of Radha Gabriel PA-C on 10/25/2024 at 05:46 PM EDT Sign off status: Pending * Provider: LAYLA Shelby Date: 0 09/02/2024 Generated for Justin garcia/Armin/Huber on: 0 10/25/2024 05:46 PM EDT
[2024-10-25] VITALS (24 sets, daily range): BP systolic 158–201; BP diastolic 60–107; PULSE 61–84; RESP 14–16; TEMP 36.8; O2SAT 96–100; BMI 25.7
--- OUTSIDE RECORDS SUMMARY | 2024-10-25 17:47 | XMS_ITS | Encounter Summary ---
Author Organization [employer] ([place], [place], [place], [place]) Address [address] [place] [address] Care Team Providers Care Adjunct Professor Of Voice Name Role Phone Unavailable Primary Care Provider Unavailabl e Encounter Details Date Type Department Care Team (Late st Contact Info) Description 03/21/2020 Transcribed Document [facility] [place] Family Medicine [facility] [place] [address] ProviderMilad MD [address] [place] [id number] Social History Tobacco Use Types Packs/Day [...] - Historical ProviderMD - 03/21/2020 11:08 AM SAUSAGE GRINDER [facility] [place] [address] LORETTA NOVOA :1960 Visit Time:03/21/2020 What [...] Comments Appointment has been made Where: [address] (FRIDAY ONLY) [place] [phone]- Business (1) Medications What How Much When [...] and water are not available, use hand food photographer. ? Change your dressing as told by [...] or a bad smell. Medicines ??? Take yzdp-ite-hcyrefg and prescription medicines only as told by [...] 06/30/2016 Document Revised: 06/08/2018 Document Reviewed: 06/30/2016 [employer] Patient Education ?? 2020 [employer]. Emergency Awareness and Preventative Care STROKE is [...] Assistance with quitting is available by contacting 8-251-CBGPOnformonicsNOW. This is a free resource providing counseling, [...] range between ( 0.0 and 7.0 ) [place] #: 0.77 K/uL -- Normal range between ( 0.16 and 1.00 ) Eos #: 0.21 x10(3)/uL -- Normal range between ( 0.00 and 0.80 ) [place] %: 10.0 % -- Normal range between [...] was given the opportunity to ask questions. Patient/Rail Car Repairman Name: Patient/Rail Car Repairman Signature: Relationship to Patient: Clinician/Hospital Rail Car Repairman Signature: Date: Electronically signed by Interface, [facility] Conversion Concrete Swimming Pool Installer Cerner at 07/09/2022 4:34 PM CDT documented in this encounter Plan of Treatment Not on file documented as of this encounter Visit Diagnoses Not on filedocumented in this encounter
--- OUTSIDE RECORDS SUMMARY | 2024-10-25 17:47 | XMS_ITS | Encounter Summary ---
Author Organization [employer] ([place], [place], [place], [place]) Address [address] [place] [address] Care Team Providers Care Ep Specialist Name Role Phone Unavailable Primary Care Provider Unavailabl e Encounter Details Date Type Department Care Team (Late st Contact Info) Description 03/21/2020 Transcribed Document [facility] [place] [facility] [place] [address] ProviderMilad MD [address] [place], [place] [id number] Social History Tobacco Use Types Packs/Day Years [...] - Historical ProviderMD - 03/21/2020 8:00 AM SHEET METAL HELPER [facility] Main OR Preop Summary Primary Physician: JAMISON WHITE MD-SANTINO Finalized Date/Time: 03/21/20 08:22:20 Pt. Name: LORETTA NOVOA /Sex: 1960 Female Med Rec #: [id number] Physician: JAMISON WHITE MD-SANTINO Financial #: [id number] Pt. Type: O Room/Bed: Admit/Disch: 03/21/20 06:21:00 - Institution: [facility] PreOp Case Times Entry 1 In Preop 03/21/20 06:38:00 Ready for Holding n/a Room Patient Ready for 03/21/20 08:15:00 Surgery Patient Out of Preop 03/21/20 08:17:00 Patient Out of n/a Holding Room Last Modified By: Yousif May Rn 03/21/20 08:22:10 Finalized By: Yousif May Rn Document Signatures Signed By: Yousif May Rn 03/21/20 08:22 Electronically signed by Tamy [facility] Conversion Cma Cerner at 07/09/2022 4:40 PM CDT documented in this encounter Plan of Treatment Not on file documented as of this encounter Visit Diagnoses Not on filedocumented in this encounter
--- OUTSIDE RECORDS SUMMARY | 2024-10-25 17:47 | XMS_ITS | Encounter Summary ---
Author Organization [employer] ([place], [place], [place], [place]) Address [address] [place] [address] Care Team Providers Care Weather Anchor Name Role Phone Unavailable Primary Care Provider Unavailabl e Encounter Details Date Type Department Care Team (Late st Contact Info) Description 03/21/2020 Transcribed Document [facility] Neurology - [facility] [address] [facility] [address] [place] [id number] Sinan Caballero MD [address] [place] [address] Social History Tobacco Use Types Packs/Day Years [...] microdiskectomy. 2. Minimally invasive laminectomy at L4-5. DIESEL DRAGLINE OPERATOR: Sridhar Aguirre. TYPE OF ANESTHESIA: GEA. DESCRIPTION [...] LOSS: 25 mL. DRAINS: None. COMPLICATIONS: None. /[id number] MD HUSSEIN Arredondo/AQ / MPT / MODL /[id number] CC: Santiago Mckeon MD documented in this encounter Plan of Treatment Not on file documented as of this encounter Visit Diagnoses Not on filedocumented in this encounter
--- OUTSIDE RECORDS SUMMARY | 2024-10-25 17:47 | XMS_ITS | Encounter Summary ---
Author Organization [employer] ([place], [place], [place], [place]) Address [address] [place] [address] Care Team Providers Care Slide Fastener Repairer Name Role Phone Unavailable Primary Care Provider Unavailabl e Encounter Details Date Type Department Care Team (Late st Contact Info) Description 03/21/[address] [facility] [place] [facility] [place] [address] ProviderMilad MD [address] [place] [phone] Social History Tobacco Use Types Packs/Day Years [...] - Historical ProviderMD - 03/21/2020 8:52 AM MANAGER AEROSPACE [facility] Main OR IntraOp Summary Primary Physician: JAMISON WHITE MD-SNU Finalized Date/Time: 03/23/20 10:19:59 Pt. Name: JENNIFER BUSTILLOS /Sex: 1960 Female Med Rec #: [id number] Physician: JAMISON WHITE MD-SNU Financial #: [id number] Pt. Type: O Room/Bed: Admit/Disch: 03/21/20 06:21:00 - 03/21/20 11:00:00 Institution: [facility] IntraOp Case Attendance Entry 1 Entry 2 Entry 3 Case Attendee CINDY, Eyad EMIER Charlie D, RN 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, RN -SNU Role Performed Surgeon/Proceduralist, Supervisor Tumblers, First Supervisor Tumblers, Second First Time In 03/21/20 08:21:00 03/21/20 [...] JUSTIN CALDWELL, JOSEPH A, CRNA Role Performed Supervisor Tumblers, Third Physician assistant front office manager DIRECTOR AIRPORT OPERATIONS/Nurse Manager Forms Time In 03/21/20 08:21:00 03/21/20 08:21:00 03/21/20 08:21:00 Time Out 03/21/20 09:43:00 03/21/20 09:43:00 03/21/20 09:43:00 Procedure Discectomy Minimally Discectomy Minimally Discectomy Minimally Invasive Invasive Invasive Other Attendee Superficial Wound Closed By: Last Modified By: Croey Castano, Corey Whitley, RN Corey Castano, RN 03/21/20 09:43:32 03/21/20 09:43:32 03/21/20 09:43:32 Entry 7 Entry 8 Entry 9 Case Attendee OTHER, ATTENDEE #1 FALGUNI OLIVER, TEENA GONZALEZ, NM RUB TECH Role Performed Student Scrub, Second Scrub, First Time In 03/21/20 08:21:00 03/21/20 08:21:00 03/21/20 08:21:00 Time Out 03/21/20 09:43:00 03/21/20 09:43:00 03/21/20 09:43:00 Procedure Discectomy Minimally Discectomy Minimally Discectomy Minimally Invasive Invasive Invasive Other Attendee PAUL GOETZ DIRECTOR AIRPORT OPERATIONS STUDENT Superficial Wound Closed By: Last Modified By: Corey Castano, RN Corey Castano, RN Corey Castano, RN 03/21/20 09:43:32 03/21/20 09:43:32 03/21/20 09:43:32 Entry 10 Case Attendee KALA VELAZQUEZ MD-ANS Role Performed Anesthesiologist of Record Time In 03/21/20 08:21:00 Time Out 03/21/20 09:43:00 Procedure Discectomy Minimally Invasive Other Attendee Superficial Wound Closed By: Last Modified By: Corey Castano, RN 03/21/20 09:43:32 [facility] IntraOp Case Attendance Audit 03/21/20 09:43:32 Orthotist Prosthetist: [email or web address] Modifier: [email or web address] 1 <+> Time Out [...] <*> Procedure Discectomy Minimally Invasive 03/21/20 09:08:25 Orthotist Prosthetist: [email or web address] Modifier: [email or web address] <+> 10 Case Attendee <+> 10 Role Performed <+> 10 Procedure 03/21/20 08:59:29 Orthotist Prosthetist: [email or web address] Modifier: [email or web address] 1 <*> Case Attendee JAMISON WHITE MD-SNU 1 <*> Role Performed Surgeon/Proceduralist, First 1 <*> Time In 03/21/20 08:21:00 1 <*> Procedure Discectomy Minimally Invasive 2 <*> Case Attendee Corey Castano, RN 2 <*> Role Performed Supervisor Tumblers, First 2 <*> Time In 03/21/20 08:21:00 2 <*> Procedure Discectomy Minimally Invasive 3 <*> Case Attendee 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, RN 3 <*> Role Performed Supervisor Tumblers, Second 3 <*> Time In 03/21/20 08:21:00 3 <*> Procedure Discectomy Minimally Invasive 4 <*> Case Attendee Argenis Reilly, Rn 4 <*> Role Performed Supervisor Tumblers, Third 4 <*> Time In 03/21/20 08:21:00 4 <*> Procedure Discectomy Minimally Invasive 5 <*> Case Attendee HILARIO DAVIDSON 5 <*> Role Performed Physician assistant front office manager 5 <*> Time In 03/21/20 08:21:00 5 <*> Procedure Discectomy Minimally Invasive 6 <*> Case Attendee GLORIA SANTIAGO, DIRECTOR AIRPORT OPERATIONS 6 <*> Role Performed DIRECTOR AIRPORT OPERATIONS/Nurse Manager Forms 6 <*> Time In 03/21/20 08:21:00 6 <*> Procedure Discectomy Minimally Invasive 7 <*> Case Attendee OTHER, ATTENDEE #1 7 <*> Role Performed Student 7 <*> Time In 03/21/20 08:21:00 7 <*> Procedure Discectomy Minimally Invasive 7 <*> Other Attendee PAUL GOETZ DIRECTOR AIRPORT OPERATIONS STUDENT 8 <*> Case Attendee FALGUNI OLIVER [...] 10 Procedure Discectomy Minimally Invasive 03/21/20 08:59:14 Orthotist Prosthetist: [email or web address] Modifier: [email or web address] 1 <*> Procedure Discectomy [...] <*> Procedure Discectomy Minimally Invasive 03/21/20 08:39:32 Orthotist Prosthetist: [email or web address] Modifier: [email or web address] <+> 9 Case Attendee <+> 9 Role Performed <+> 9 Procedure <+> 10 Case Attendee <+> 10 Role Performed <+> 10 Procedure 03/21/20 08:25:18 Orthotist Prosthetist: [email or web address] Modifier: [email or web address] 1 <*> Procedure Discectomy [...] <*> Procedure Discectomy Minimally Invasive 03/21/20 08:24:52 Orthotist Prosthetist: [email or web address] Modifier: [email or web address] <+> 6 Case Attendee <+> 6 Role Performed <+> 6 Procedure <+> 7 Case Attendee <+> 7 Role Performed <+> 7 Procedure <+> 7 Other Attendee <+> 8 Case Attendee <+> 8 Role Performed <+> 8 Procedure 03/21/20 08:21:37 Orthotist Prosthetist: [email or web address] Modifier: [email or web address] 1 <+> Time In 1 <*> Procedure Discectomy Minimally Invasive 2 <+> Time In 2 <*> Procedure Discectomy Minimally Invasive 3 <+> Time In 3 <*> Procedure Discectomy Minimally Invasive 4 <+> Time In 4 <*> Procedure Discectomy Minimally Invasive 5 <+> Time In 5 <*> Procedure Discectomy Minimally Invasive 03/21/20 08:21:26 Orthotist Prosthetist: [email or web address] Modifier: [email or web address] 1 <*> Case Attendee CINDY, CLAUDINE MEIER 1 <*> Role Performed Surgeon/Proceduralist, First 1 <+> Procedure <+> 2 Case Attendee <+> 2 Role Performed <+> 2 Procedure <+> 3 Case Attendee <+> 3 Role Performed <+> 3 Procedure <+> 4 Case Attendee <+> 4 Role Performed <+> 4 Procedure <+> 5 Case Attendee <+> 5 Role Performed <+> 5 Procedure [facility] IntraOp Case Times Entry 1 Patient In Room Time 03/21/20 08:21:00 Out Room Time 03/21/20 09:43:00 Anesthesia Start Time 03/21/20 08:21:00 Stop Time 03/21/20 09:43:00 Surgery / Procedure Times Start Time 03/21/20 08:52:00 Stop Time 03/21/20 09:33:00 Last Modified By: Corey Castano RN 03/21/20 09:43:29 [facility] IntraOp Case Times Audit 03/21/20 09:43:29 Orthotist Prosthetist: [email or web address] Modifier: [email or web address] <+> 1 Out Room Time <+> 1 Stop Time 03/21/20 09:33:52 Orthotist Prosthetist: [email or web address] Modifier: [email or web address] <+> 1 Stop Time 03/21/20 08:52:01 Orthotist Prosthetist: [email or web address] Modifier: [email or web address] <+> 1 Start Time [facility] IntraOp Cautery Entry 1 Entry 2 ESU Identification Cautery Type Monopolar ESU BiPolar ESU Cautery Type Comments ID Number [id number] ID Type Hospital Number Hospital Number Cautery [...] Corey Castano RN 03/21/20 09:00:29 03/21/20 09:00:29 [facility] IntraOp Communication Entry 1 Communication To Family/Significant other Comment START Communication By Corey Castano RN Date and Time 03/21/20 08:53:00 Last Modified By: Corey Castano RN 03/21/20 08:53:44 [facility] IntraOp Counts Verification Entry 1 Procedure Discectomy Minimally Invasive Count Info Count Type Sponge, Sharps, Miscellaneous Counts Verification Baseline/pre-procedure Sequence Count Results Not Applicable Counts Performed By Count Performed By FALGUNI OLIVER ST (Scrub) Count Performed By 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 RN (RN) Last Modified By: Corey Castano RN 03/21/20 08:59:41 [facility] IntraOp Counts Verification Audit 03/21/20 08:59:41 Orthotist Prosthetist: [email or web address] Modifier: [email or web address] 1 <*> Procedure Discectomy Minimally Invasive 1 <*> Count Performed By (Scrub) TEENA LOPEZ SC RUB TECH 03/21/20 08:59:21 Orthotist Prosthetist: [email or web address] Modifier: [email or web address] 1 <*> Procedure Discectomy Minimally Invasive 1 <*> Count Performed By (Scrub) FALGUNI OLIVER ST [facility] IntraOp Counts Final Entry 1 Procedure Discectomy Minimally Invasive Final Count Info Count Type Sponge, Sharps, Miscellaneous Counts Verification Skin Closure/end of Sequence procedure Count Results Correct, surgeon notified Counts Performed By Count Performed By TEENA LOPEZ SC RUB (Scrub) TECH Count Performed By Argenis Reilly Rn (RN) Last Modified By: Corey Castano RN 03/21/20 09:29:04 [facility] IntraOp Delays Entry 1 Delay Reason Surgeon late - did not call Duration 21 Minute(s) Last Modified By: Corey Castano RN 03/21/20 08:25:02 [facility] IntraOp Departure from OR Entry 1 Integumentary Assessment Integumentary WDL Assessment WDL Transfer/Handoff Transfer to PACU Phase I Handoff Method Bedside/Face to face, Phone call Post-op Transport Stretcher/Florentinordaja Via Patient Transport GLORIA SANTIAGO, Accompanied by RISHI, OTHER, ATTENDEE #1 Last Modified By: Corey Castano RN 03/21/20 09:02:54 [facility] IntraOp Dressing and Packing Entry 1 Type Dressing Location OP SITE Wound Dressing Item Occlusive dressing, Steristrip, Other Applied By LETY, HILARIO Other Comments MASTISOL, STERISTRIPS, COVADERM Last Modified By: Corey Castano RN 03/21/20 09:10:38 [facility] IntraOp Fire Risk Assessment Entry 1 Fire Info Surgical Site or 0- No Incision Above the Xyphoid Open O2 Source 1- Yes (Mask or Cannula) Available Ignition 1- Yes (ESU, Laser, Light Source) Fire Risk 1 Assessment Score Fire Score Fire Risk Yes Assessment Complete Fire Risk 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 coke inspector Verified By Fire Risk 03/21/20 08:20:00 Assessment Verified Date/Time Fire Risk Standard Fire Yes Safety Precautions Followed Last Modified By: Corey Castano RN 03/21/20 09:02:38 [facility] IntraOp General Case Development Lead 1 Case Information OR OR 11 [facility] Case Level 1 Room Verified Yes Wound Class I - Clean Specialty SN Neurosurgery Anesthesia Type General ASA Class 2 Diagnosis Preop Diagnosis LUMBAR RADICULOPATHY Postop Same As Preop No Postop Diagnosis SEE MD POST OP NOTE Last Modified By: Corey Castano RN 03/21/20 09:02:23 [facility] IntraOp General Case Data Audit 03/21/20 09:02:23 Orthotist Prosthetist: [email or web address] Modifier: [email or web address] <+> 1 Preop Diagnosis [facility] IntraOp Intraoperative Assessment Entry 1 Handoff Method [...] Modified By: Corey Castano RN 03/21/20 09:03:04 [facility] IntraOp Intraoperative Equipment Entry 1 Type Equipment Equipment Equipment Yvonne Suction System ID Number [id number] Setting 200 MM HG Intraop Monitoring Electrocardiogram Five lead placement (ECG) Electrode Placement Blood Pressure Non-Invasive BP Device Source Blood Pressure Arm, right upper Location Pulse Oximeter Hand, left Probe Site Antiembolic Devices Antiembolic Devices Sequential compression device, knee high Antiembolic Device Bilateral Location Antiembolic Device [id number] ID Number Scopes Photo/Video Documentation Last Modified By: Corey Castano RN 03/21/20 09:03:35 [facility] IntraOp Medication Admin Entry 1 Entry 2 Entry 3 Medication/Irrigant Bacitracin powder lidocaine 1% w/ Neosporin 15Gm ointment 50,000 units-[id number] epinephrine 1:100,000 - [id number] 30ml vial - [id number] Combo Med List Time Administered Route of ADDED TO NS IRRIGATION LOCAL TOPICAL Administration Dose Dose 85147 20 1 Unit of Measure units ml pkt Volume Administered By JAMISON WHITE TUTT, MATTHEW PAIGE, TUTT, MATTHEW PAIGE, MD-SNU MD-SNU MD-SNU Procedure Irrigation Irrigant Volume In Irrigant Volume Out Last Modified By: Corey Castano, Corey Whitley RN Byrd, Charlie D, RN 03/21/20 09:05:18 03/21/20 09:05:18 03/21/20 09:05:18 Entry 4 Entry 5 Medication/Irrigant SPNG SURGFOAM thrombin 5000units [id number] topical powder - [id number] Combo Med List Time Administered Route of [...] 40MG, TORADOL 15MG, MARCAINE 0.25% PLAIN 30ML [facility] IntraOp Patient Positioning Entry 1 Procedure Discectomy Minimally Invasive Body Position Prone Left Arm Position Secured on padded arm board Right Arm Position Secured on padded arm board Left Leg Position Elevated Right Leg Position Elevated Feet Uncrossed Yes Pressure Points Yes Checked Positioning Devices Arm Board, Head Rest, Pad, Arm, Pillows, Safety Strap, Thighs, Ruddy Frame Positioned By JAMISON WHITE MD-SNU, Corey Casatno, RONAL, 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 RN, HILARIO DAVIDSON CALDWELL, JOSEPH A, RISHI, OTHER, ATTENDEE #1 Position Verified Positioning Yes Verified by Anesthesia Positioning Yes Verified by Surgeon Last Modified By: Corey Castano RN 03/21/20 09:06:38 [facility] IntraOp Sign In Entry 1 Patient, Site, [...] Modified By: Corey Castano RN 03/21/20 09:06:55 [facility] IntraOp Sign Out Entry 1 RN Confirmation [...] Modified By: Corey Castano RN 03/21/20 09:43:41 [facility] IntraOp Sign Out Audit 03/21/20 09:43:41 Orthotist Prosthetist: [email or web address] Modifier: [email or web address] <+> 1 RN Sign Out Signature Date/Time [facility] IntraOp Skin Prep Entry 1 Entry 2 [...] performed Hair Removal Site Hair Removal By [facility] Modified By: Corey Castano RN Byrd, Charlie D, RN 03/21/20 09:01:44 03/21/20 09:01:44 [facility] IntraOp Surgical Procedures Entry 1 Procedure Discectomy Minimally Invasive Additional MIS L4-5 DISCECTOMY Procedure WITH LAMINECTOMY) Description Primary Procedure Yes Primary Surgeon JAMISON WHITE MD-SNU Start 03/21/20 08:52:00 Stop 03/21/20 09:33:00 Anesthesia Type General Specialty SN Neurosurgery Wound Class I - Clean Last Modified By: Corey Castano RN 03/21/20 09:33:55 [facility] IntraOp Surgical Procedures Audit 03/21/20 09:33:55 Orthotist Prosthetist: [email or web address] Modifier: [email or web address] <+> 1 Stop 03/21/20 09:24:57 Orthotist Prosthetist: [email or web address] Modifier: [email or web address] 1 <*> Procedure Discectomy Minimally Invasive 1 <*> Additional Procedure Description MIS L4-5 DISCECTOMY POSS LAMINECTOMY) [facility] IntraOp Temp Regulation Devices Entry 1 Temp Regulation Temperature Forced Air Warming Regulation Device device, Warm blankets Temperature 41985 Regulation Device Serial/Unit Number Temperature Upper body Regulation Site Temperature Device 43 C Setting Temperature GLORIA SANTIAGO CRNA Regulation Device Applied by [facility] Modified By: Corey Castano RN 03/21/20 09:00:48 [facility] IntraOP Time Out Entry 1 Procedure to [...] Modified By: Corey Castano RN 03/21/20 08:52:37 [facility] IntraOp X-Ray and Images Entry 1 X-Ray/Imaging Type Fluoroscopy Fluoroscopy Type C-Arm Site OP SITE Account Support Specialist Name Liz Williamson, Low Vision Therapist Last Modified By: Corey Castano RN 03/21/20 [...]
--- OUTSIDE RECORDS SUMMARY | 2024-10-25 17:47 | XMS_ITS | Encounter Summary ---
Author Organization [employer] ([place], [place], [place], [place]) Address [address] [place] [address] Care Team Providers Care Ceramics Machine Operator Name Role Phone Unavailable Primary Care Provider Unavailabl e Encounter Details Date Type Department Care Team (Late st Contact Info) Description 03/20/2020 Transcribed Document [facility] [place] [facility] [place] [address] ProviderMilad MD [address] [place] [address] Social History Tobacco Use Types [...] - Historical ProviderMD - 03/20/2020 2:16 PM SAMMYING MACHINE OPERATOR PAT Adult Entered On: 03/20/2020 14:20 EST [...] Body Mass Index : 25.8 kg/m2 (HI) Sawyer Body Weight : 57 kg Yousif May [...] : No TUTU BELL 03/20/2020 14:16 EST [place] Suicide Severity Rating Scale (C-SSRS) CSSRS Past [...] Olivo Name/Contact Info Physician Notified Adm : [phone] Yousif May Rn - 03/21/2020 8:15 EST Mode of Arrival on Unit : Ambulatory Legal Guardian : Unaccompanied Support Person/Pt Rep Contact Information : so grupo olivo [phone] TUTU BELL - 03/20/2020 14:16 EST Want Family/Rep/Phys Notified of Admit : Yes Yousif May Rn - 03/21/2020 8:15 EST Emergency Contact #1 : - Emergency Contact #1 Phone Number : - Emergency Contact #1 Relationship : - Emergency Contact #2 : - Emergency Contact #2 Phone Number : - Emergency Contact #2 Relationship : - Chief Complaint : - Primary Language : Turkmen Communication Barrier : None Slagger Needed : No TUTU BELL - 03/20/2020 [...]
--- OUTSIDE RECORDS SUMMARY | 2024-10-25 17:47 | XMS_ITS | Encounter Summary ---
Author Organization [employer] ([place], [place], [place], [place]) Address [address] [place] [address] Care Team Providers Care Copper Miner Name Role Phone Unavailable Primary Care Provider Unavailabl e Encounter Details Date Type Department Care Team (Late st Contact Info) Description 03/21/2020 Transcribed Document [facility] [place] [facility] [place] [address] ProviderMilad MD [address] [place], [place] [phone] Social History Tobacco Use Types Packs/Day Years [...] Milad Becerra MD - 03/21/2020 11:03 AM SPEECH THERAPY ASSISTANT Patient Education Materials Follows: Outpatient Surgery, Adult, [...] and water are not available, use hand memorial marker designer. ? Change your dressing as told [...] or a bad smell. Medicines ??? Take xybz-jfn-ggazhse and prescription medicines only as told by [...] 06/30/2016 Document Revised: 06/08/2018 Document Reviewed: 06/30/2016 [employer] Dynamic Patient Education ? 2020 [employer] documented in this encounter Plan of Treatment Not on file documented as of this encounter Visit Diagnoses Not on filedocumented in this encounter
--- OUTSIDE RECORDS SUMMARY | 2024-10-25 17:47 | XMS_ITS | Encounter Summary ---
Author Organization [employer] ([place], [place], [place], [place]) Address [address] [place] [address] Care Team Providers Care Bistro Attendant Name Role Phone Unavailable Primary Care Provider Unavailabl e Encounter Details Date Type Department Care Team (Late st Contact Info) Description 03/21/2020 Transcribed Document [facility] [place] [facility] [place] [address] ProviderMilad MD [address] [place] [id number] Social History Tobacco Use Types Packs/Day [...] - Historical ProviderMD - 03/21/2020 11:07 AM JUICE WEIGHER [facility] [place] [address] LORETTA NOVOA :1960 Visit Time:03/21/2020 What [...] Comments Appointment has been made Where: [address] (FRIDAY ONLY) [place] [phone]- Business (1) Medications What How Much When [...] and water are not available, use hand coordinator of library services. ? Change your dressing as told by [...] or a bad smell. Medicines ??? Take ydle-vwz-qqrxqjf and prescription medicines only as told by [...] 06/30/2016 Document Revised: 06/08/2018 Document Reviewed: 06/30/2016 [employer] Patient Education ?? 2020 [employer]. Emergency Awareness and Preventative Care STROKE is [...] Assistance with quitting is available by contacting 7-[employer]. This is a free resource providing counseling, [...] range between ( 0.0 and 7.0 ) Levy #: 0.77 K/uL -- Normal range between ( 0.16 and 1.00 ) Eos #: 0.21 x10(3)/uL -- Normal range between ( 0.00 and 0.80 ) Levy %: 10.0 % -- Normal range between [...] was given the opportunity to ask questions. Patient/Agriculture Scientist Name: Patient/Agriculture Scientist Signature: Relationship to Patient: Clinician/Hospital Agriculture Scientist Signature: Date: Electronically signed by Interface, [facility] Conversion Machinist Supervisor Outside Cerner at 07/09/2022 4:30 PM CDT documented in this encounter Plan of Treatment Not on file documented as of this encounter Visit Diagnoses Not on filedocumented in this encounter
--- OUTSIDE RECORDS SUMMARY | 2024-10-25 17:47 | XMS_ITS | Encounter Summary ---
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 Name: LORETTA NOVOA /Sex: 1960 Female Med Rec #: [id number] Physician: JAMISON WHITE MD-SNU Financial #: [id number] Pt. Type: O Room/Bed: Admit/Disch: 03/21/20 06:21:00 - Institution: [facility] Main OR PostOp Case Times Entry 1 In PACU II 03/21/20 10:35:00 Ready for PACU II 12/29/20 10:50:00 Discharge Discharge from PACU 03/21/20 11:00:00 II Last Modified By: DMITRI GRULLON RN 03/21/20 12:04:34 Finalized By: DMITRI GRULLON, RN Document Signatures Signed By: DMITRI GRULLON RN 03/21/20 12:04 Electronically signed by [facility] Conversion Conference Coordinator Cerner at 07/09/2022 4:31 PM CDT documented in this encounter Plan of Treatment Not on file documented as of this encounter Visit Diagnoses Not on filedocumented in this encounter
--- OUTSIDE RECORDS SUMMARY | 2024-10-25 17:47 | XMS_ITS | Encounter Summary ---
Author Organization [employer] ([place], [place], [place], [place]) Address [address] [place] [address] Care Team Providers Care Youth Teacher Name Role Phone Unavailable Primary Care Provider Unavailabl e Encounter Details Date Type Department Care Team (Late st Contact Info) Description 03/21/2020 Transcribed Document [facility] [address] [facility] [address] [place] [address] Sinan Caballero MD [address] [place] [address] Social History Tobacco Use Types Packs/Day Years [...] pain Primary Care Provider OLAYINKA WASHINGTON (MD [facility] History of Present Illness 59F initially [...]
--- OUTSIDE RECORDS SUMMARY | 2024-10-25 17:47 | XMS_ITS | Referral Summary ---
Author Organization [employer] ([place], [place], [place], [place]) Address [address] [place] [address] Care Team Providers Care Lap Checker Name Role Phone Unavailable Primary Care Provider [...]
--- OUTSIDE RECORDS SUMMARY | 2024-10-25 17:47 | XMS_ITS | Encounter Summary ---
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 Name: LORETTA NOVOA /Sex: 1960 Female Med Rec #: [id number] Physician: JAMISON WHITE MD-SNU Financial #: [id number] Pt. Type: O Room/Bed: Admit/Disch: 03/21/20 06:21:00 - Institution: [facility] Main OR PACU I Case Times Entry 1 In PACU I 03/21/20 09:45:00 Ready for PACU 03/21/20 10:40:00 Discharge Discharge from PACU 03/21/20 10:40:00 I Last Modified By: AR MICHEL RN 03/21/20 10:41:37 Finalized By: AR MICHEL, RN Document Signatures Signed By: AR MICHEL RN 03/21/20 10:41 Electronically signed by Tamy [facility] Conversion Make Up Editor Cerner at 07/09/2022 4:31 PM CDT documented in this encounter Plan of Treatment Not on file documented as of this encounter Visit Diagnoses Not on filedocumented in this encounter
--- OUTSIDE RECORDS SUMMARY | 2024-10-25 17:47 | XMS_ITS | Patient Health Record ---
Author Organization [facility] Address [address] [place] [address] Care Team Providers Care Business Technology Architect Name Role Phone Santiago Mckeon Primary Care Provider Lidia Gabriel Unavailable [phone] Migration, Provider Unavailable Unavailable Allergies Allergen (clinical drug ingredient) Drug/Non Drug Allergy documented on EMR Reaction Allergy Type Onset Date Status meloxicam Meloxicam angioedema Drug Allergy Active diclofenac Diclofenac hives Drug Allergy Activ e Results Component Value Reference Range Notes VITAMIN D,25-OH,TOTAL,IA (17 306) Reviewed date:09/08/2024 04:53:01 PM Interpretation: Performing Lab:F[facility], [facility], [facility] HospitalFgmvGX[address] [place] Notes/Report: NON-FASTING; NON-FASTING; NON-FASTING; NON-FASTING; [...] D, (D2,D3), LC/MS/MS is recommended: order code [id number] (patients >2yrs). See Note 1 Note 1 For additional information, please refer to http://education.SmartKickzTextPayMe/faq/CGU607 (This link is being provided for informational/ educational purposes only.) TSH W/REFLEX TO FT4 (81163) Reviewed date:09/08/2024 04:53:01 PM Interpretation: Performing Lab:FABIAN, [facility] [address], [place] KunyPY[address] [place] Notes/Report: NON-FASTING; NON-FASTING; NON-FASTING; NON-FASTING; NON-FAST TSH W/REFLEX TO FT4 0.98 0.40-4.50 mIU/L VITAMIN B12 (927) Reviewed date:09/08/2024 04:53:01 PM Interpretation: Performing Lab:FABIAN, [facility] [address], [place] GamesYjdaBI[address] [place] Notes/Report: NON-FASTING; NON-FASTING; NON-FASTING; NON-FASTING; NON-FAST VITAMIN B12 104 436-3114 pg/mL CBC (INCLUDES DIFF/PLT) (639 9) Reviewed date:09/08/2024 04:53:00 PM Interpretation: Performing Lab:FABIAN [facility] [address], TVA MedicalWrfwZP[address] [place] Notes/Report: NON-FASTING; NON-FASTING; NON-FASTING; NON-FASTING; [...] MPV 11.0 7.5-12.5 fL ABSOLUTE NEUTROPHILS 9835 0693-3572 cells/uL ABSOLUTE LYMPHOCYTES 3211 850-3900 cells/uL ABSOLUTE MONOCYTES 1166 200-950 cells/uL ABSOLUTE EOSINOPHILS 144 15-500 cells/uL ABSOLUTE BASOPHILS 43 0-200 cells/uL NEUTROPHILS 68.3 LYMPHOCYTES 22.3 MONOCYTES 8.1 EOSINOPHILS 1.0 BASOPHILS 0.3 COMPREHENSIVE METABOLIC PANE L (00581) Reviewed date:09/08/2024 04:53:00 PM Interpretation: Performing Lab:CB, [facility] [address], [place] VillanuevaIknxAU[address] [place] Tillman Notes/Report: NON-FASTING; NON-FASTING; NON-FASTING; NON-FASTING; [...] 27 10-35 U/L ALT 24 6-29 U/L X ray : Spines, Lumbosacral Reviewed date:09/08/2024 04:53:01 PM Interpretation: Performing Lab: Notes/Report: X ray : Spines, Lumbosacral Reviewed date:09/08/2024 04:53:01 PM Interpretation: Performing Lab: Notes/Report: CT Scan : Chest, Lung Cancer Screening Reviewed date:05/13/2024 10:35:25 AM Interpretation: Performing Lab: Notes/Report: TSH W/REFLEX TO FT4 (15174) Reviewed date:04/23/2024 02:23:09 PM Interpretation: Performing Lab:FABIAN [facility] [address] [facility], [place] MhesGT[address] Nj Tillman Notes/Report: NON-FASTING; NON-FASTING; NON-FASTING; NON-FASTING; NON-FAST FASTING:YES FASTING: YES TSH W/REFLEX TO FT4 1.67 0.40-4.50 mIU/L HEMOGLOBIN A1c (496) Reviewed date:04/23/2024 02:23:09 PM Interpretation: Performing Lab:FABIAN [facility] [address], [place] AjwuDI[address] Nj Tillman Notes/Report: NON-FASTING; NON-FASTING; NON-FASTING; NON-FASTING; [...] diagnosis of diabetes in children. According to [place] Diabetes Association (ADA) guidelines, hemoglobin A1c <7.0% represents optimal control in non- diabetic patients. Different metrics may apply to specific patient populations. Standards of Medical Care in Diabetes(ADA). CBC (INCLUDES DIFF/PLT) (639 9) Reviewed date:04/23/2024 02:23:09 PM Interpretation: Performing Lab:FABIAN [facility] [address] [facility], [place] BiflCS[address] N[place] Tillman Notes/Report: NON-FASTING; NON-FASTING; NON-FASTING; NON-FASTING; [...] MPV 10.9 7.5-12.5 fL ABSOLUTE NEUTROPHILS 4000 9979-7115 cells/uL ABSOLUTE LYMPHOCYTES 2343 850-3900 cells/uL ABSOLUTE MONOCYTES 723 200-950 cells/uL ABSOLUTE EOSINOPHILS 183 15-500 cells/uL ABSOLUTE BASOPHILS 51 0-200 cells/uL NEUTROPHILS 54.8 LYMPHOCYTES 32.1 MONOCYTES 9.9 EOSINOPHILS 2.5 BASOPHILS 0.7 COMPREHENSIVE METABOLIC PANE L (58662) Reviewed date:04/23/2024 02:23:09 PM Interpretation: Performing Lab:CB, [facility], [facility] HospitalJwdwLO[address] [place]man Notes/Report: NON-FASTING; NON-FASTING; NON-FASTING; NON-FASTING; [...] 23 10-35 U/L ALT 19 6-29 U/L LIPID PANEL, STANDARD (7600) Reviewed date:04/23/2024 02:23:08 PM Interpretation: Performing Lab:CB, [facility] [address], [place] VillanuevaZcphJV[address] Njleilani Tillman Notes/Report: NON-FASTING; NON-FASTING; NON-FASTING; NON-FASTING; NON-FAST [...] LDL-C. Geovany MIJARES et al. JEFFRY. 2013;310(19): 5422-4756 (http://education.SyCara Local/faq/EMU882) CHOL/HDLC RATIO 2.2 <5.0 (calc) NON HDL CHOLESTEROL 111 <130 mg/dL (calc) For patients with diabetes plus 1 major ASCVD risk factor, treating to a non-HDL-C goal of <100 mg/dL (LDL-C of <70 mg/dL) is considered a therapeutic option. DEXA Hip and Spine - Screeni ng Reviewed date:04/23/2024 09:41:35 AM Interpretation: Performing Lab: Notes/Report: Medications Medication [...] W/U Status Risk Notes Problem Mixed hyperlipidemia (958694478) Mixed hyperlipidemia (E78.2) Active confirmed Problem Generalized anxiety disorder (06899684) Generalized anxiety disorder (F41.1) Active confirmed Problem Chronic pain (63128291) Other chronic pain (G89.29) Active confirmed Problem Seasonal allergic rhinitis (092166849) Other seasonal allergic rhinitis (J30.2) Active confirmed Problem Allergic rhinitis (36360574) Other allergic rhinitis (J30.89) Active confirmed Problem Centrilobular emphysema (56136809) Centrilobular emphysema (J43.2) Active confirmed Problem Sciatica (56047770) Lumbago with sciatica, right side (M54.41) Active confirmed Problem Sciatica (39627022) Lumbago with sciatica, left side (M54.42) Active confirmed Problem Nicotine dependence (66845785) Personal history of nicotine dependence (Z87.891) Active confirmed Problem Vitamin D deficiency (19932132) Vitamin D deficiency (E55.9) Active confirmed Problem Tobacco use (056615607) Tobacco use disorder (Z72.0) Active confirmed Problem Insomnia (479105706) Insomnia (G47.00) Active confirmed Problem Hyperlipidemia (78603284) Hyperlipemia, idiopathic familial (E78.5) Active confirmed Problem Multiple nodules of lung (173017792) Lung nodules (R91.8) Active confirmed Problem Osteoarthritis of knee (422764853) Primary osteoarthritis of both knees (M17.0) Active confirmed Problem Abnormal mammogram (422845161) Abnormal mammogram (R92.8) Active confirmed Problem Sciatica (84694134) Right sciatic nerve pain (M54.31) Active confirmed Problem Atrophic vaginitis (41676292) Atrophic vaginitis (N95.2) Active confirmed Problem Chronic obstructive lung disease (15089405) COPD without exacerbation (J44.9) Active confirmed Problem Menopausal flushing (745675929) Hot flash, menopausal (N95.1) Active confirmed Problem Hot flashes (438946524) Hot flashes (R23.2) Active confirmed Problem Menopause (304587875) Vasomotor symptoms due to menopause (N95.1) Active confirmed Problem Polyneuropathy (42276980) Other polyneuropathy (G62.89) Active confirmed Vital Signs Heart Rate 78 /min 08/13/2024 Temperature 98 degrees Fahrenheit 08/13/2024 Blood pressure diastolic 82 mm Hg 08/13/2024 Height 5 ft 5 in in 08/13/2024 Blood pressure systolic 142 mm Hg 08/13/2024 Weight 148 lbs 08/13/2024 BMI 24.63 kg/m2 08/13/2024 Encounters Encounter Location Date Provider Diagnosis [facility] [address] [address] 06/26/2024 Provider Migration Hot flashes R23.2 ; Muscle strain T14.8XXA ; Other specified disorders of bone density and structure, right thigh M85.851 and Mixed hyperlipidemia E78.2 [facility] [address] [place] [address] 09/02/2024 Lidia Gabriel [facility] [address] [address] 04/13/2024 Lidia Gabriel Muscle strain T14.8X XA [...] cancer Z12.2 and Encounter for immunization Z23 [facility] [address] [address] 08/13/2024 Lidia Gabriel Lumbago with sciatic a, right side M54.41 ; Lumbago with sciatica, left side M54.42 ; Other polyneuropathy G62.89 ; B12 deficiency E53.8 and Vitamin D deficiency E55.9 [facility] [address] [place] [address] 04/14/2024 Lidia Gabriel Asymptomatic postmenopausal state Z78.0 [facility] [address] [place] [address] 04/19/2024 Lidia Gabriel History of nicotine dependence Z87.891 [facility] [address] [facility] [address] [place] [address] 05/13/2024 Santiago Mckeon Pulmonary cavitary lesion J98.4 [facility] [address] [facility] [address] [place] [address] 08/17/2024 Lidia Gabriel Lumbago with sciatic a, right side M54.41 Assessments Encounter Date Diagnosis (ICD Code) Assessment Notes Treatment Notes Treatment Clinical Notes Section Notes 04/14/2024 Asymptomatic postmenopausal state (ICD-10 - Z78.0) 08/13/2024 Lumbago with sciatica, right side (ICD-10 [...] left side (ICD-10 - M54.42) As above. 05/13/2024 Pulmonary cavitary lesion (ICD-10 - J98.4) 04/19/2024 History of nicotine dependence (ICD-10 - Z87.891) 08/17/2024 Lumbago with sciatica, right side (ICD-10 - M54.41) 06/26/2024 Hot flashes (ICD-10 - R23.2) 06/26/2024 Muscle strain (ICD-10 - T14.8XXA) 04/13/2024 Hot flashes (ICD-10 - R23.2) Will [...] agree with the plan of care above. 04/13/2024 Personal history of nicotine dependence (ICD-10 - Z87.891) Cessation discussed, precontemplative. 08/13/2024 Other polyneuropathy (ICD-10 - G62.89) I [...] with a tall glass of water. 06/26/2024 Mixed hyperlipidemia (ICD-10 - E78.2) 04/13/2024 Mixed hyperlipidemia (ICD-10 - E78.2) Continue statin. I personally will review all labs once final. 04/13/2024 Family history of diabetes mellitus (ICD-10 [...] C-VITAMIN B12 03/10/2013 C-VITAMIN D, 25-HYDROXY 03/10/2013 Next Appt Details Provider Name:Lidia Martinez ce, 10/26/2024 02:15:00 PM, [address], [place], [address], Insurance Providers Payer Name Payer Address Payer Phone Subscriber Number Group Number Insured Name Patient Relationship to Insured Coverage Start Date Coverage End Date [facility] [address] [place] [address] [id number] Jennifer Novoa Self - patient is [...]
--- OUTSIDE RECORDS SUMMARY | 2024-10-25 17:47 | XMS_ITS | Clinical Summary ---
Author Organization [facility] ([place], [place], [place], [place]) Address [address] [place] [address] Care Team Providers Care Structural Metal Worker Name Role Phone Unavailable Primary Care Provider [...]
--- NOTE | 2024-10-25 17:58 | PC.NURSE ---
calling at this time.
--- NOTE | 2024-10-25 18:01 | HMH.EDGENADL ---
Discharge Plan Disposition Patient Disposition: Xfer Other Prescriptions Prescriptions: No Action ergocalciferol (vitamin D2) 1,250 mcg (50,000 unit) capsule 1,250 mcg PO WEEKLY valacyclovir 1 gram tablet 1,000 mg PO Q8H Qty: 21 0RF baclofen 10 mg tablet 10 mg PO TID Qty: 42 0RF venlafaxine 75 mg capsule,extended release 24hr 150 mg PO DAILY Patient Comments: TAKE 1 CAPSULE BY MOUTH EVERY DAY atorvastatin 40 MG tablet 40 mg PO HS Referrals Follow up/Referrals: Santiago Mckeon MD [Primary Care Provider, Internal Medicine] - See instructions Clinical Impressions Clinical Impression: Lumbar back pain, Bladder incontinence, Complaints of leg weakness Instructions Patient Instructions: DI for Low Back Pain Print Language Print Language: Yoruba Discharge ED Provider: Ron Reilly General Adult HPI General Chief complaint: Back Pain/Injury Stated complaint: Back pack with incontinence Time Seen by Provider: 10/25/24 17:42 Mode of Arrival: Ambulatory Source of Information: Patient Description of Symptoms (Recalled from ER Triage Doc. by RN): Patient complaining of pain in lower back that she states is chronic but has been getting worse the last several days and now is having urinary incontinence that started yesterday 10/24/24. She states she had 3 episodes yesterday, none today. Patient states she goes to the pain clinic for injections, last injection was 10/05/24 but was told they could not get to the right spot . Had a laminectomy 7 years ago. Patient is in lower back radiating down both legs. History of Present Illness HPI narrative: Patient is a 64-year-old female presenting today with lower back pain. Has a history of a herniated disc treated with laminectomy by Dr. Caballero 7 years ago after many months of symptoms. She states it has come back. She states she is now 4 months into her symptoms has been going through and jumping through the hoops from her insurance standpoint getting plain films and has been going through physical therapy for several months at this point. However the last 24 hours she has multiple episodes of complete bladder incontinence. She also states that she has having increasing motor weakness in bilateral lower extremities particular the right lower extremity. Denies any saddle anesthesia no fevers no chills. Pain is radiating down both legs posteriorly. She was trying to get an outpatient MRI however her insurance has not yet approved this. Related Data Home Medications ?Medication ?Instructions ?Recorded ?Confirmed atorvastatin 40 mg tablet 40 mg PO HS Cholesterol 12/24/19 10/21/24 ergocalciferol (vitamin D2) 1,250 1,250 mcg PO WEEKLY 10/22/22 10/21/24 mcg (50,000 unit) capsule venlafaxine 75 mg capsule,extended 150 mg PO DAILY hot flashes 10/22/22 10/21/24 release 24 hr Previous Rx's ?Medication ?Instructions ?Recorded valacyclovir 1 gram tablet 1,000 mg PO Q8H #21 tabs 10/22/22 baclofen 10 mg tablet 10 mg PO TID #42 tabs 10/21/24 Allergies Allergy/AdvReac Type Severity Reaction Status Date / Time meloxicam (MELOXICAM) Allergy Unknown Rash Verified 10/25/24 17:47 [facility] Disclaimer: The information contained in this section may have been updated after the patient was seen, as this information can be updated by other users. Medical History (Updated 10/25/24 @ 17:59 by Ron Reilly MD) Dyspnea CAD (coronary artery disease) Surgical History Hx of tonsillectomy History of hysterectomy Family History Father Leukemia Mother Cancer Social History Smoking Status: Current every day smoker tobacco type: cigarettes packs per day: 1 second hand exposure: No alcohol intake: never current occupational status: other Travel in the last 8 weeks?: None household members: significant other housing: house current occupation: [place] current occupational exposures/hazards: No caffeine: Yes Have you lived/traveled outside US in past 30 days?: No Contact w/someone who lives/traveled outside US past 30 days?: No Exposure to someone with infectious disease in past 14 days?: No Do you have a fever (greater than 100.4 F or 38 C)?: No Have you tested positive for COVID-19?: No Exposed to someone with COVID-19 in past 14 days?: No Do you have a sore throat?: No Do you have a cough?: No Do you have any weakness?: No Do you have any diarrhea?: No Are you experiencing any unusual bleeding?: No Do you have any muscle aches/pain?: No Do you have any abdominal pain?: No Are you experiencing loss of taste or smell?: No Other Medical History Have you received the Flu Vaccine for this season: Yes Have you received the Pneumonia Vaccine: Yes ROS Obtained: Yes All systems reviewed & no additional complaints except as documented Physical Exam General General appearance: alert Respiratory Respiratory exam: Present normal lung sounds bilaterally Cardiovascular Cardiovascular exam: Present regular rate Back Exam Back exam: Present other (Normal bilateral straight leg raise test she has 4-5 weakness in plantarflexion at the ankle on the right side also with flexion at the knee on the right side otherwise dorsiflexion plantarflexion of the left foot is normal flexion extension of the left leg is normal and at the hip bilaterally joshua) Neurological Exam Neurological exam: Present alert and oriented X3 Medical Decision Making Medical Records Screening: Per USPSTF and CDC recommendations, given the prevalence of disease in our region, it is our hospital?s policy to screen for HIV and viral Hepatitis for all patients aged 18 and over and those with ongoing risk factors. Tony Inquiry Pt receiving controlled substance: No Vital Signs: 10/25/24 17:40 Temperature 98.2 F Temperature Source Oral Pulse Rate [Right Brachial] 84 Respiratory Rate 16 Blood Pressure [Right Arm] 201/107 H Blood Pressure Mean [Right Arm] 138 Blood Pressure Source [Right Arm] Automatic Cuff Blood Pressure Position [Right Arm] Sitting 02 Sat by Pulse Oximetry 98 Oxygen Delivery Method Room Air Orders (Tests/Meds): ED MEDICATIONS Generic Name Dose Route Start Last Admin Trade Name Freq PRN Reason Stop Dose Admin Lactated Ringer's 1,000 mls @ 999 mls/hr 10/25/24 18:00 Lactated Ringer's 1000 Ml Bag IV 10/25/24 19:00 .Q1H1M JACKLYN Discontinued Medications Generic Name Dose Route Start Last Admin Trade Name Freq PRN Reason Stop Dose Admin Dexamethasone Sodium Phosphate 10 mg 10/25/24 17:57 Dexamethasone 4mg/Ml 1ml Vial IV 10/25/24 17:58 ONCE ONE Lidocaine 1 each 10/25/24 17:57 Lidocaine 5% Transdermal Patch TD 10/25/24 17:58 ONCE ONE Morphine Sulfate 4 mg 10/25/24 17:57 Morphine 4mg/Ml Syringe IV 10/25/24 17:58 ONCE ONE ORDERS Category Date Time Status CBC w/Auto Diff [Complete Blood Count Auto Diff] Stat Lab 10/25/24 17:57 Ordered CMP [Comprehensive Metabolic Panel] Stat Lab 10/25/24 17:57 Ordered CRP [C-Reactive Protein] Stat Lab 10/25/24 17:57 Ordered ESR [Erythrocyte Sedimentation Rate] Stat Lab 10/25/24 17:57 Ordered Medical Decision Narrative: Patient with above history and physical 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 We do not have the ability to get an MRI in the evenings at our hospital and given the fact that we do not have neurosurgical coverage here or spine coverage here admitting her at our hospital to get an MRI tomorrow as not ideal and we will try to transfer her with there are / MRI capabilities. Specifically the patient is followed by Dr. Caballero whom she would like to interact with again if possible. Dr. Caballero is at [facility] [place] we will try to get her transferred there for an emergency MRI and possible neurosurgical evaluation/intervention. In the meantime we will try to get some of her symptoms under control. Reassessment 6:34 PM I was able to speak with Dr. Darby who is on-call for neurosurgery at [facility] [place] and I subsequently spoke with Dr. Wilson who accepted this patient for an emergency MRI and neurosurgical evaluation. Critical Care Critical Care Time Critical Care Time: No
[2024-10-25 18:47] LABS: Hematocrit 39.0 % (37.0-47.0); Hemoglobin 13.6 g/dL (12.2-16.2); Immature Granulocytes % 0.3 %; Mean Corpuscular HGB Conc 34.9 g/dL (31.8-35.4); Mean Corpuscular Hemoglobin 32.3 pg (27.0-31.2); Mean Corpuscular Volume 92.6 fl (81-99); Nucleated Red Blood Cells % 0 %; Platelet Count 261 K/mm3 (142-424); Red Blood Count 4.21 M/mm3 (4.20-5.40); Red Cell Distribution Width-SD 43.8 fL; White Blood Count 12.6 K/mm3 (4.8-10.8)
[2024-10-25] MEDS: MORPHINE 4MG/ML SYRINGE 4 MG IV (18:59)
[2024-10-25] MEDS: LACTATED RINGERS 1000ML 1,000 ML 999 ML IV (19:00)
[2024-10-25] MEDS: DEXAMETHASONE 4MG/ML 1ML VIAL 10 MG IV (19:00)
[2024-10-25] MEDS: LIDOCAINE 5% TRANSDERMAL PATCH 1 EACH TD (19:07)
[2024-10-25 19:23] LABS: Alanine Aminotransferase 27 U/L (12-78); Albumin Level 4.8 g/dl (3.5-5.0); Albumin/Globulin Ratio 1.7 (1.1-1.8); Alkaline Phosphatase 92 U/L (38-126); Anion Gap 9.6 mEq/L (5-15); Aspartate Amino Transferase 38 U/L (14-36); Bilirubin,Total 0.4 mg/dl (0.2-1.3); Blood Urea Nitrogen 7 mg/dl (7-17); Calcium 10.1 mg/dl (8.4-10.2); Carbon Dioxide 28 mmol/L (22.0-30.0); Chloride 108 mmol/L (98-107); Creatinine Clearance Estimated 63 mL/min (50-200); Creatinine,Serum 0.60 mg/dl (0.52-1.04); Estimated Glomerular Filt Rate 101 ml/min (>60); GFR (African American) 123 ML/MIN (>60); Globulin 2.8 g/dL (1.3-3.2); Glucose 97 mg/dl (74-100); Potassium 3.6 mmoL/L (3.5-5.1); Sodium 142 mmol/L (136-145); Total Protein,Serum 7.6 g/dl (6.3-8.2)
[2024-10-25 19:28] LABS: C-Reactive Protein 4.5 mg/L (0-4)
== END 2024-10-25 23:39 | disposition other institution (70) ==
PROVIDERS: Emergency Provider Student in an Organized Health Care Education/Training Program; PCP Internal Medicine Adolescent Medicine
DX: M54.50 Low back pain, unspecified (principal); R32 Unspecified urinary incontinence; R29.898 Other symptoms and signs involving the musculoskeletal system; E78.5 Hyperlipidemia, unspecified; F17.210 Nicotine dependence, cigarettes, uncomplicated
CPT/HCPCS: 80053; 85025; 85651; 86140; 96361; 96374; 96375; 99284; J1100; J2270; J7120

== ENCOUNTER 2025-02-02 14:53 | Outpatient (RCR) | payer BC, SELFPAY | END 2025-02-02 23:59 | disposition home or self-care (01) | LOC: PT 14:53 | PROVIDERS: PCP Internal Medicine Adolescent Medicine; Visit Provider Neurological Surgery | DX: M54.16 Radiculopathy, lumbar region (principal) | CPT/HCPCS: 97163 ==

== ENCOUNTER 2025-02-28 17:00 | Outpatient (RCR) | payer BC, SELFPAY | END 2025-02-28 23:59 | disposition home or self-care (01) | LOC: PT 17:00 | PROVIDERS: PCP Internal Medicine Adolescent Medicine; Visit Provider Neurological Surgery | DX: M54.16 Radiculopathy, lumbar region (principal) | CPT/HCPCS: 97110 ==